=== PATIENT | female | born 1965 | race Caucasian/White ===

== ENCOUNTER 2016-03-06 12:12 | Inpatient (IN) | payer OTHER ==
[~2016-03-06] VITALS: Ht 170.2 cm; Wt 147.0 kg
--- NOTE | 2016-03-06 12:15 | NUR ---
TO EKG [facility].
--- NOTE | 2016-03-06 12:19 | ED GENERAL ADULT ---
History of Present Illness General Chief Complaint: Chest Pain Stated Complaint: PAIN UNDER L BREAST, RECENT DX PNEUMONIA Source: patient Exam Limitations: poor historian Allergies Coded Allergies: morphine (Severe, MAKES HER CRAZY 03/06/16) Reconcile Medications Albuterol Sulfate (Proventil Hfa) 90 MCG HFA.AER.AD 2 PUF INH 4 TIMES/DAY PRN BREATHING (Reported) Budesonide/Formoterol Fumarate (Symbicort 160-4.5 Mcg Inhaler) 160 MCG-4.5 MCG/ ACTUATION HFA.AER.AD 2 PUF INH BID BREATHING (Reported) Diltiazem HCl (Cartia Xt) 120 MG CAP.ER.24H 1 CAP PO DAILY HEART (Reported) Duloxetine HCl 60 MG CAPSULE.DR 1 CAP PO DAILY MENTAL HEALTH (Reported) Esomeprazole (Nexium) 40 MG CAPSULE.DR 1 CAP PO DAILY GI (Reported) Gabapentin 300 MG CAPSULE 2 CAP PO TID PAIN (Reported) Quetiapine Fumarate 25 MG TABLET 1 TAB PO QPM SLEEP (Reported) Rivaroxaban (Xarelto) 20 MG TABLET 1 TAB PO DAILY BLOOD THINNER (Reported) with food Tiotropium [place] (Spiriva) 18 MCG CAP.W.DEV 1 CAP INH DAILY BREATHING ( Reported) Trazodone HCl 50 MG TABLET 2 TAB PO QPM SLEEP (Reported) Onset: Abrupt Duration: hour(s): Timing: recent history HPI: 03/06/16 12:32 PM This is a 50-year-old female who has a past medical history of asthma and is a smoker. She says that she was diagnosed with pneumonia and now has severe muscle spasms in her chest wall. She admits to cough and difficulty breathing. The onset of the symptoms were abrupt, the duration has been approximately 12 hours, the severity is significant as her symptoms required her to come to the emergency department for care. On physical exam. The patient is in severe distress, she has left sided pleuritic chest wall tenderness. Poor air entry on the exam She was immediately treated with oxygen, albuterol and Atrovent nebulizers (JHOANA AYOUB DO) Vital Signs & Intake/Output Vital Signs & Intake/Output Vital Signs Date Time Temp Pulse Resp B/P Pulse O2 O2 Flow FiO2 Ox Delivery Rate 03/07 1600 Nasal 5.0L Cannula 03/07 1600 96.8 86 18 140/70 93 Nasal 5.0L Cannula 03/07 1200 Nasal 6.0L Cannula 03/07 0850 Nasal 3.0L Cannula 03/07 0850 91 Nasal 3.0L Cannula 03/07 0800 Nasal 3.0L Cannula 03/07 0800 97.5 86 24 110/70 93 Nasal 3.0L Cannula 03/07 0452 94 Nasal 3.0L Cannula 03/07 0452 97.6 89 31 98/39 95 Nasal 3.0L Cannula 03/07 0352 94 Nasal 3.0L Cannula 03/07 0248 97.9 72 24 98/66 95 Nasal 3.0L Cannula 03/07 0209 76 98/62 03 0155 82/58 03/07 0050 82/58 03/06 2342 97.6 90 20 72/00 95 Nasal 3.0L Cannula 03/06 2147 98.9 90 18 86/0 95 Room Air 03/06 2018 78/62 03/06 1946 78/0 03/06 1946 78/52 03/06 1853 84/60 03/06 1843 99.3 94 18 84/50 94 Nasal 3.0L Cannula 03/06 1748 120/50 03/06 1723 99.0 85 22 84/56 94 Nasal 2.0L Cannula ED Intake and Output 03/07 0000 03/06 1200 Intake Total 3000 Output Total 160 Balance 2840 Intake, IV 3000 Intake, Oral 0 Output, Urine 160 Patient 324 lb Weight Triage Nurses Notes Reviewed? yes (BERNARDINO RESTREPO,ELISABETH Dorman) Past History Travel History Traveled to [place] past 21 day No Medical History Cardiovascular: hypertension Respiratory: COPD Endocrine: diabetes Surgical History Surgical History: non-contributory Psychosocial History What is your primary language Turkmen (JHOANA AYOUB DO) Medical History Any Pertinent Medical History? see below for history Family History Hx Contributory? No (BERNARDINO RESTREPO,ELISABETH Dorman) Review of Systems Review of Systems Respiratory: Reports: see HPI. Cardiovascular: Reports: chest pain (chest wall). GI: Denies: abdominal pain. Genitourinary: Reports: no symptoms. Musculoskeletal: Reports: back pain. Skin: Denies: rash. Neurological/Psychological: Reports: anxiety. Hematologic/Endocrine: Denies: bleeding. (JHOANA AYOUB DO) Review of Systems Constitutional: Reports: see HPI. EENTM: Reports: no symptoms. Respiratory: Reports: no symptoms. Cardiovascular: Reports: no symptoms. GI: Reports: no symptoms. Genitourinary: Reports: no symptoms. Musculoskeletal: Reports: no symptoms. Skin: Reports: no symptoms. Neurological/Psychological: Reports: no symptoms. Hematologic/Endocrine: Reports: no symptoms. Immunologic/Allergic: Reports: no symptoms. All Other Systems: Reviewed and Negative (BERNARDINO RESTREPO,ELISABETH Dorman) Physical Exam Physical Exam General Appearance: well developed/nourished, alert, awake, anxious, moderate distress Eyes: Bilateral: PERRL, EOMI. Ears, Nose, Throat: dry mucosa Neck: normal inspection, supple, full range of motion Respiratory: left-sided chest wall tenderness Cardiovascular: regular rate/rhythm Peripheral Pulses: 4+ radial (R), 4+ radial (L) Gastrointestinal: soft, non-tender Back: normal inspection (JHOANA AYOUB DO) Physical Exam General Appearance: moderate distress Head: normal appearance Eyes: Bilateral: normal appearance. Ears, Nose, Throat: dry mucosa Neck: normal inspection, supple, full range of motion Respiratory: normal breath sounds, respiratory distress, coarse breath sounds Cardiovascular: regular rate/rhythm Gastrointestinal: normal bowel sounds, soft, non-tender, no organomegaly Back: normal inspection Extremities: normal inspection, normal capillary refill, normal range of motion Neurologic/Psych: no motor/sensory deficits, awake, alert, oriented x 3 Skin: intact, normal color, warm/dry Core Measures ACS in differential dx? No CVA/TIA Diagnosis: No Severe Sepsis Present: No Septic Shock Present: No (BERNARDINO RESTREPO,ELISABETH Dorman) Progress Differential Diagnoses I considered the following diagnoses in my evaluation of the patient: [Pneumonia , pulmonary embolism, sepsis, pneumothorax] Initial ED EKG: NSR (JHOANA AYOUB DO) Differential Diagnoses I considered the following diagnoses in my evaluation of the patient: septic shock, pneumonia, vs other. Plan of Care: Orders Procedure Date/time Status VANCOMYCIN (VANCOCIN) LEVEL 03/08 0600 Active Consistent Carbohydrate 2 03/07 B Complete BLOOD CULTURE 03/07 1514 Active THERAPIST ORDERS 03/07 1431 Complete GLYCOSYLATED HGB 03/07 1235 Active STREP PNEUMO URINARY ANTIGEN 03/07 1207 Complete LEGIONELLA URINARY ANTIGEN 03/07 1207 Complete LOWER RESPIRATORY CULTURE 03/07 1207 Active RT: Reevaluation 03/07 0850 Active RT: Evaluation 03/07 0850 Active Cummins, Insertion/Removal/Asses 03/07 0805 Active CBC WITHOUT DIFFERENTIAL 03/07 0600 Complete BASIC ELECTROLYTES PLUS BUN&CR 03/07 0600 Complete TROPONIN LEVEL 03/07 0347 Complete PHOSPHORUS 03/07 0347 Complete MAGNESIUM 03/07 0347 Complete B-TYPE NATRIURETIC PEP (BNP) 03/07 0347 Complete VRE ACTIVE SURVIELLANCE 03/07 0319 Active ACTIVE SURVEILLANCE NARES 03/07 0319 Active Add-on Test (ER Only) 03/07 0026 Active URINE DRUGS OF ABUSE 03/07 0010 Complete THERAPIST ORDERS 03/07 UNK Complete Lab Add-on Test 03/07 UNK Active MRI-LT FOOT W/O HAO 03/07 UNK Active PHARMACY COMMUNICATION FORM 03/07 UNK Active Wound Care/Dressing 03/06 2321 Active Weight 03/06 2321 Active VTE Mechanical Prophylaxis 03/06 2321 Active Vital Signs 03/06 2321 Active Turn and Reposition 03/06 2321 Active Drains/Tubes 03/06 232 Active Teach/Educate 03/06 232 Active Skin Integrity Protocol 03/06 2321 Active Skin/Pressure Ulcer Assess (Sk 03/06 2321 Active Precautions 03/06 2321 Active Pain Treatment and Response 03/06 2321 Active Nutritional Intake, Monitor 03/06 232 Active Isolation 03/06 232 Active CIWA 03/06 232 Complete Patient Care Conference 03/06 232 Active Activity/Ambulation 03/06 2321 Active LACTIC ACID 03/06 2304 Complete CULTURE,URINE 03/06 222 Active TROPONIN LEVEL 03/06 220 Complete EKG 03/06 220 Active Transfer patient to 03/06 2114 Active LACTIC ACID 03/06 2003 Complete Transfer patient to 03/06 2000 Active TROPONIN LEVEL 03/06 1811 Complete EKG 03/06 1811 Active URINALYSIS 03/06 1747 Complete Intake & Output 03/06 UNK Active Cummins, Insertion/Removal/Asses 03/06 UNK Complete ECHOCARDIOGRAM 03/06 UNK Active Current Medications Sig/Teresita Start time Last Medication Dose Stop Time Status Admin Azithromycin 500 MG 1830 03/07 1830 AC (Zithromax) Sodium Chloride 250 ML (Normal Saline 0.9%) Vancomycin HCl 1,500 MG ONCE ONE 03/07 1645 UNir Sodium Chloride 250 ML 03/07 1744 (Normal Saline 0.9%) Insulin Aspart 0 TIDAC 03/07 0800 CAN (NovoLOG) Laboratory Tests 03/07/16 1245: Hemoglobin A1c Pending 03/07/16 0600: CBC w Diff MAN DIFF ORDERED, RBC 3.80 L, MCV 98.2, MCH 32.5 H, RDW 13.1, MPV 10.5 H, Gran % 91.5 H, Lymphocytes % 4.0 L, Monocytes % 4.5, Eosinophils % 0, Basophils % 0 L, Absolute Granulocytes 16.8 H, Segmented Neutrophils 77 H, Band Neutrophils 10 H, Absolute Lymphocytes 0.7 L, Lymphocytes 7 L, Monocytes 6, Absolute Monocytes 0.8 H, Absolute Eosinophils 0, Absolute Basophils 0, Platelet Estimate VERIFIED BY SMEAR, Polychromasia 1+, Anisocytosis 1+, PUBS MCHC 33.1 03/07/16 0400: Troponin I Cancelled 03/07/16 0347: Anion Gap 17 H, Estimated GFR 30 L, BUN/Creatinine Ratio 17.8, Phosphorus 3.7, Magnesium 1.5 L, Troponin I < 0.01, Zuf-[id number]-[id number] Pept 234 H 03/07/16 0010: Urine Opiates Screen 841.00, Methadone Screen 121, Barbiturate Screen < 60, Ur Phencyclidine Scrn 22.00, Amphetamines Screen < 100, U Benzodiazepines Scrn < 85 , Urine Cocaine Screen < 50, Urine Cannabis Screen < 5.00, Urinalysis MOD H, Urine Color YEL, Urine Clarity CLEAR, Urine pH 6.0, Ur Specific [place] 1.025, Urine Protein 100 H, Urine Ketones NEG, Urine Nitrite NEG, Urine Bilirubin NEG@ ICTO, Urine Urobilinogen 0.2, Ur Leukocyte Esterase NEG, Ur Microscopic SEDIMENT EXAMINED, Urine RBC 1-3, Urine WBC 5-10 H, Ur Epithelial Cells MOD H, Urine Mucus FEW, Urine Hemoglobin TRACE-INTACT, Urine Glucose >=1000 H 03/06/16 2344: Lactic Acid 1.3 03/06/16 2200: Troponin I < 0.01 03/06/16 2119: Lactic Acid 2.2 H 03/06/16 2000: Troponin I Cancelled 03/06/16 1833: Troponin I < 0.01 Microbiology 03/07 1542 BLOOD: Blood Culture - RECD 03/07 1542 BLOOD: Blood Culture - RECD 03/07 1234 URINE ROUT: Legionella Antigen - COMP 03/07 1234 URINE ROUT: Streptococcus pneumoniae Antigen (M - COMP 03/07 1207 LOWER RESP: Respiratory Culture - COLB 03/07 1207 LOWER RESP: Gram Stain - COLB 03/07 0320 UPPER RESP: Surveillance Culture - RECD 03/07 0320 GI: Surveillance Culture - RECD 03/07 0010 URINE ROUT: Urine Culture - RECD 03/06 2208 EXTREMITIE: Culture & Sensitivity - CAN Cancelled: SPECIMEN NOT RECEIVED IN LABORATORY 03/06 2208 EXTREMITIE: Gram Stain - CAN Cancelled: SPECIMEN NOT RECEIVED IN LABORATORY Departure Departure Condition: Stable Referrals: MARICARMEN MONTGOMERY DO (PCP/Family) Departure Forms: Customer Survey General Discharge Information Comments The patient was treated with IV fluids, IV antibiotics and admitted to the hospital for further care. Admission Note Spoke With: KAYLA MURPHY MD Documentation of Exam: Documentation of any treatments & extenuating circumstances including Concerns Regarding Discharge (functional status, medication knowledge or non-compliance, living conditions, etc.) that warrant an admission rather than observation: [The patient needs admission for IV antibiotics, CTA, consider pulmonary consult, rule out pulmonary embolism] (JHOANA AYOUB DO) Departure Disposition: STILL A PATIENT Clinical Impression Primary Impression: Pneumonia Secondary Impressions: JOSE L (acute kidney injury), Septic shock Referred to [facility] as new patient No Comments 03/07/16, 1:20AM....pt with persistent hypotension despite 5 liters normal saline bolus... discussed at length with patient who signed informed consent, mindful of increased bleeding risk due to her xarelto. right femoral line placed under sterile technique without complication.... levophed gtt started. (BERNARDINO RESTREPO,ELISABETH Dorman) Procedures Central Line Central Line Lumen: triple Central Line Procedure: Yes: bentadine prep?, sterile drapes applied, sterile dressing applied. Central Line Position: femoral (R) Anesthesia: lidocaine 1% CC's of Anesthesia: 20 Complications: none Central Line Post Position: sutured, good blood return Progress: bleeding minimal. no complications. (BERNARDINO RESTREPO,ELISABETH Dorman) Critical Care Note Critical Care Note Critical Care Time: 30-74 min (ELISABETH LEBRON MD)
--- NOTE | 2016-03-06 12:20 | NUR ---
PT TO ED C/O MUSCLE SPAMS UNDER LEFT BREAST AND LEFT ARM X 2 DAYS. PT IS CURRENTLY BEING TREATED WITH AVELOX AND PREDNISONE FOR PNEUMONIA. PT EXTREMEMLY ANXIOUS. RA SATS 90%. EKG DONE, PT TO ROOM 1.
[2016-03-06 12:39] LABS: ABSOLUTE BASOPHIL COUNT 0 /CUMM (0.0-0.2); ABSOLUTE EOSINOPHIL COUNT 0 /CUMM (0.0-0.7); ABSOLUTE GRANULOCYTE CT 18.4 /CUMM (1.4-6.5); ABSOLUTE LYMPH COUNT 1.6 /CUMM (1.2-3.4); ABSOLUTE MONOCYTE COUNT 0.5 /CUMM (0.10-0.60); BASOPHIL % 0.1 % (0.0-2.0); EOSINOPHIL % 0.2 % (0-5); GRANULOCYTE % 89.5 % (42.2-75.2); HEMATOCRIT 42.6 % (37-47); MEAN CORPUSCULAR HGB 32.1 PG (27.0-31.0); MEAN CORPUSCULAR HGB CONC 33.5 G/DL (33.0-37.0); MEAN PLATELET VOLUME 9.8 FL (7.4-10.4); PLATELET COUNT 230 /CUMM (130-400); RBC DISTRIBUTION WIDTH 13.4 % (11.5-14.5); RED BLOOD CELL CT 4.44 /CUMM (4.20-5.40); WHITE BLOOD CELL COUNT 20.5 /CUMM (4.8-10.8)
--- NOTE | 2016-03-06 12:41 | NUR ---
BLOOD WORK DRAWN AND SENT TO LAB: SST, LAV, BLUE, BUTCHER AND PINK TOPS. PT'S O2 SAT 89% RA. PLACED ON 3L NC OXYGEN WITH IMPROVEMENT TO 93%. PT MEDICATED WITH VALIUM AND TORADOL PER EMAR. RESP THERAPY AT BEDSIDE FOR TREATMENT.
--- NOTE | 2016-03-06 13:02 | NUR ---
CRITICAL TEST RESULTS [id number] BRIGIDO CASILLAS 50 F TESTS AND RESULTS: GLUCOSE 548 Results received and read back by: GERA LAGOS Results received date and time: 03/06/16 1303 The following provider was notified of the results, and read the results back: DR. AYOUB Notified date and time: 03/06/16 at 1300
--- NOTE | 2016-03-06 13:12 | NUR ---
PT MEDICATED WITH INSULIN PER EMAR. DOSE VERIFIED WITH LASHAY BOND.
[2016-03-06 13:51] LABS: PT 12.2 SEC (9.4-12.5)
[2016-03-06] MEDS ORDERED: PROVENTIL HFA6.7 GM INH (13:59)
[2016-03-06] MEDS ORDERED: PREDNISONE20 M1 PO (13:59)
[2016-03-06] MEDS ORDERED: LEVOFLOXACIN500 M1 PO (13:59)
[2016-03-06] MEDS ORDERED: SPIRIVA18 MCG INH (13:59)
[2016-03-06] MEDS ORDERED: QUETIAPINE FUMA25 M1 PO (14:00)
[2016-03-06] MEDS ORDERED: SYMBICORT 16010.2 GM INH (14:00)
[2016-03-06] MEDS ORDERED: DULOXETINE HCL60 MG PO (14:00)
[2016-03-06] MEDS ORDERED: TRAZODONE HCL50 M1 PO (14:00)
[2016-03-06] MEDS ORDERED: NEXIUM40 M1 PO (14:01)
[2016-03-06] MEDS ORDERED: CARTIA XT120 M1 PO (14:01)
[2016-03-06] MEDS ORDERED: GABAPENTIN300 M2 PO (14:01)
[2016-03-06] MEDS ORDERED: LOSARTAN-HCTZ1 EAC2 PO (14:01)
[2016-03-06] MEDS ORDERED: METFORMIN HCL1000 M1 PO (14:01)
[2016-03-06] MEDS ORDERED: XARELTO20 M2 PO (14:02)
--- NOTE | 2016-03-06 14:11 | NUR ---
PT TO CAT SCAN VIA STRETCHER NOW.
--- NOTE | 2016-03-06 14:25 | NUR ---
PT FROM CAT SCAN TO [email or web address]
--- NOTE | 2016-03-06 14:44 | History & Physical ---
DAVI SZYMANSKI 03/06/16 1444: General Information and HPI MD Statement: I have seen and personally examined BRIGIDO CASILLAS and documented this H&P. The patient is a 50 year old F who presented with a patient stated chief complaint of []. Source of Information: patient, old records Exam Limitations: no limitations History of Present Illness: Chief complaint: Muscle spasm in chest wall/left sided This is a 50-year-old active smoker lady with past medical history significant for COPD not on home oxygen, type 2 diabetes, hypertension, atrial fibrillation, ? Right lower extremity DVT who presents to the hospital for chest discomfort. Patient describes her chest her chest discomfort as left sided muscle spasm, , radiates to her Left arm and neck which she has been experiencing since yesterday. According to the patient, she might have pulled her muscle while lifting her dog(weighs about 25 pounds). She is also very anxious, worries about her who has dementia; as she is the only caregiver for her . Patient also reports trouble breathing after each episode of muscle spasm. The patient denies fevers, chills headache, nausea, vomiting, dizziness, lightheadedness, chest pain, chest pressure, palpitation, abdominal pain, urinary symptoms. She was diagnosed with pneumonia as outpatient this Sunday. She was started on levofloxacin and by mouth prednisone. Her productive cough still persists( greenish sputum) and she hasn't noticed any improvement on antibiotics. 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 She smokes half a pack per day, per patient she has significantly reduced her smoking. She denies EtOH or illicit drug use. Regarding her diabetes, it was diagnosed 8 years ago, she is trying to lose weight, is compliant with her medication, does not check her glucose levels at home. He has decreased sensation in her lower extremities as baseline and is on gabapentin for diabetic neuropathy. 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 Per patient, she was started on Xarelto last July after diagnosis of DVT in her right lower extremity. Allergies/Medications Allergies: Coded Allergies: morphine (Severe, MAKES HER CRAZY 03/06/16) Home Med list Albuterol Sulfate (Proventil Hfa) 90 MCG HFA.AER.AD 2 PUF INH 4 TIMES/DAY PRN BREATHING (Reported) Budesonide/Formoterol Fumarate (Symbicort 160-4.5 Mcg Inhaler) 160 MCG-4.5 MCG/ ACTUATION HFA.AER.AD 2 PUF INH BID BREATHING (Reported) Diltiazem HCl (Cartia Xt) 120 MG CAP.ER.24H 1 CAP PO DAILY HEART (Reported) Duloxetine HCl 60 MG CAPSULE.DR 1 CAP PO DAILY MENTAL HEALTH (Reported) Esomeprazole (Nexium) 40 MG CAPSULE.DR 1 CAP PO DAILY GI (Reported) Gabapentin 300 MG CAPSULE 2 CAP PO TID PAIN (Reported) Quetiapine Fumarate 25 MG TABLET 1 TAB PO QPM SLEEP (Reported) Rivaroxaban (Xarelto) 20 MG TABLET 1 TAB PO DAILY BLOOD THINNER (Reported) with food Tiotropium [place] (Spiriva) 18 MCG CAP.W.DEV 1 CAP INH DAILY BREATHING ( Reported) Trazodone HCl 50 MG TABLET 2 TAB PO QPM SLEEP (Reported) Past History Travel History Traveled to [place] past 21 day No Medical History Cardiovascular: hypertension Respiratory: COPD Endocrine: diabetes Surgical History Surgical History: non-contributory Review of Systems Review of Systems Constitutional: Denies: chills, diaphoresis, fever, malaise, weakness, unexplained weight loss. EENTM: Denies: blurred vision, double vision, visual changes, eye pain, eye drainage, eye tearing, icterus, ear discharge, ear pain, ear redness, hearing changes, nasal congestion, epistaxis, nasal pain, throat pain. Cardiovascular: Denies: chest pain, edema, orthopena, palpitations, peripheral edema, syncope. Respiratory: Reports: cough, short of breath, sputum production, wheezing. Denies: hemoptysis, orthopnea, stridor. GI: Denies: abdominal pain, bloating, constipation, diarrhea, distention, bowel incontinence, melena, nausea, bloody stool, changes in stool, vomiting, steatorrhea. Genitourinary: Denies: discharge, dysuria, frequency, hematuria, hesitation, nocturia, pain, urgency. Musculoskeletal: Denies: back pain, gout, joint pain, joint swelling, muscle pain, muscle stiffness, neck pain. Skin: Denies: cysts, change in skin color, change in hair/nails, dryness, erythema, jaundice, lymphangitis, lumps, moles, rash. Neurological/Psychological: Reports: anxiety. Denies: ataxia, cognitive dysfunction, confusion, depressed, dementia, emotional problems, headache, numbness, paresthesia, pre-existing deficit, petit mal seizures, tingling, tremors, tonic-clonic seizures. Hematologic/Endocrine: Denies: bruising, bleeding, polyuria, polydipsia. Immunologic/Allergic: Denies: see HPI, splenectomy, HIV/AIDS, lymphadenopathy, other. All Other Systems: Reviewed and Negative Exam & Diagnostic Data Last 24 Hrs of Vital Signs/I&O Vital Signs Date Time Temp Pulse Resp B/P Pulse O2 O2 Flow FiO2 Ox Delivery Rate 03/06 1723 99.0 85 22 84/56 94 Nasal 2.0L Cannula 03/06 1614 98.1 88 20 80/52 95 Nasal 3.0L Cannula 03/06 1457 96.6 89 20 121/52 95 Nasal 3.0L Cannula 03/06 1242 93 Nasal 3.0L Cannula 03/06 1221 96.5 93 26 106/72 90 Room Air Intake & Output 03/06 1600 03/06 0800 03/06 0000 Intake Total 0 Output Total Balance 0 Intake, Oral 0 Patient 324 lb Weight Physical Exam General Appearance Alert, Oriented X3, Cooperative, Mild Distress, Obese Skin No Rashes, No Breakdown HEENT Atraumatic, PERRLA, EOMI, Mucous Membr. moist/pink Neck Supple, No JVD, No thryomegaly, +2 Carotid Pulse wo Bruit, No LAD Lymphatic Axillary nl, Cervical nl Cardiovascular Regular Rate, Normal S1, Normal S2, No Murmurs, No tenderness to palpation on the chest wall b/l Lungs Normal Air Movement, expiratory wheezes, decreased breath sounds Abdomen Normal Bowel Sounds, Soft, No Tenderness, No Hepatospenomegaly, No Masses Neurological Normal Speech, Strength at 5/5 X4 Ext, Normal Tone, Cranial Nerves 3-12 NL, Reflexes 2+, decreased sensation on LE B/L, sensation otherwise intact Extremities No Clubbing, No Cyanosis, No Edema, Normal Pulses, No Tenderness/ Swelling, wound noted on second and third left toes; there is no toenail present on 2nd and 3rd toes. There is yellow scab present on the wound. erythema noted no pus noted. No tenderness. No wound/infection in between toes. it. Per patient she had trauma to her leg few months ago. Vascular Normal Pulses, Pulses Symmetrical Last 24 Hrs of Labs/Chase: Laboratory Tests 03/06/16 1231: Anion Gap 14, Estimated GFR 43 L, BUN/Creatinine Ratio 21.5, Glucose 548 *H, Calcium 10.0, Total Bilirubin 1.3, AST 17, ALT 42, Alkaline Phosphatase 128 H, Troponin I < 0.01, Total Protein 7.5, Albumin 4.0, Globulin 3.5, Albumin/ Globulin Ratio 1.1, PT 12.2, INR 1.16, D-Dimer 1973 H, CBC w Diff MAN DIFF ORDERED, RBC 4.44, MCV 96.0, MCH 32.1 H, RDW 13.4, MPV 9.8, Gran % 89.5 H, Lymphocytes % 7.7 L, Monocytes % 2.5, Eosinophils % 0.2, Basophils % 0.1, Absolute Granulocytes 18.4 H, Segmented Neutrophils 83 H, Band Neutrophils 7 H, Absolute Lymphocytes 1.6, Lymphocytes 6 L, Monocytes 4, Absolute Monocytes 0.5, Absolute Eosinophils 0, Absolute Basophils 0, Normocytic RBCs VERIFIED, Normochromic RBCs VERIFIED, PUBS MCHC 33.5 Microbiology 03/06 1608 BLOOD: Blood Culture - RECD 03/06 1555 BLOOD: Blood Culture - RECD 03/06 1550 LOWER RESP: Respiratory Culture - ORD 03/06 1550 LOWER RESP: Gram Stain - ORD Diagnostic Data EKG Results Sinus rhythm, rate 90, QTC 465, no significant ST-T wave abnormalities. CXR Results Chest x-ray 03/01/2016:Suspect small subtle basilar infiltrate at left lung base. Other Results Chest CTA: 1. No evidence of pulmonary embolism. 2. Acute left upper lobe lingular pneumonia and/or early pneumonia right lower lobe. 3. Trace left pleural effusion and reactive lymphadenopathy in the left hilum. Assessment/Plan Assessment: 50-year-old lady with history of COPD and recent pneumonia presents today with sided chest discomfort and muscle spasm along with productive cough and shortness of breath. Bilateral lower extremity Doppler was negative for any DVT , CTA was negative for PE and showed right lower lobe and left upper lobe pneumonia. On admission, it was also noted that the patient has blood glucose level of 548. Problem list/plan: #Chest discomfort, shortness of breath * The patient has left-sided chest discomfort which she describes as muscle spasm, it radiates to her left arm. Elevated D-dimer. CTA was negative for any PE. Her symptoms started after she tried lifting her dog yesterday; most likely musculoskeletal however cardiac etiology should be ruled out. 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 Ying as outpatient; patient is on Xarelto and mentions that she has been on Xarelto for right lower extremity DVT, per our records she is on Xarelto for atrial fibrillation, will confirm with Dr. Ying tomorrow * Flexeril 5 mg daily when necessary for muscle spasm * Oxycodone 5 mg every 8 when necessary for severe pain * Tylenol 650 every 6 when necessary for mild/moderate pain #Pneumonia/COPD exacerbation: * CTA shows Acute left upper lobe lingular pneumonia and/or early pneumonia right lower lobe. * WBC 20.5 with granulocytosis of note patient has been on steroids. * She was diagnosed with pneumonia and COPD exacerbation as outpatient however her symptoms did not improve on the levofloxacin and prednisone * TRC/nebs * Oxygen supplementation as needed * Blood culture, sputum culture * Will start IV ceftriaxone and IV azithromycin after obtaining cultures * Will start prednisone 40 mg by mouth twice a day * Consider pulmonary consult in the morning #Type 2 diabetes with diabetic neuropathy: * Patient was found to have blood glucose level of 548 on admission; after receiving 6 units of Humalog insulin blood glucose level decreased to 408. * Will administer insulin aspart 8 units 1, will start the patient on high dose sliding scale, and insulin detemir 8 units subcutaneous at bedtime * Accu-Cheks * Will hold home medication of metformin * Continue gabapentin at home dose for neuropathy * Will add hemoglobin A1c to her labs * Diabetes/cardiac diet * Consider podiatry consult for wounds on 2nd and 3rd left toes. * Consider Xray of the left foot #AK I: * Patient has creatinine level of 1.3 on admission (baseline 1 in July 2015) * Given patient was on home medication of metformin also received contrast through CTA start aggressive hydration with normal saline at 1 25 mL/h for one bag, will change to 100 mL/h afterwards * Will hold home medications of losartan and hydrochlorothiazide; if necessary we can add amlodipine for hypertension * Recheck BUN/Cr creatinine level tomorrow #History of hypertension: * Continue with diltiazem HCl 120 mg daily #Continue with rest of medications including duloxetine, quetiapine, trazodone #DVT prophylaxis: * On Xarelto #Pain management: * Tylenol for mild/moderate * Oxycodone for severe pain * Cyclobenzaprine for muscle spasm #CODE STATUS: * Full code Update: Patient had episodes of hypotension requiring IV boluses; blood pressure was not maintaining on IV fluids, given wound on the left toes, there was a concern that wounds could be source of infection. Xray of the foot was ordered which showed possible osteomyelitis but MRI suggested. Patient will be transferred to the ICU for closer monitoring. As Ranked By This Provider Problem List: 1. Pneumonia 2. JOSE L (acute kidney injury) 3. COPD exacerbation 4. Muscle spasm 5. Diabetes Core Measures/Miscellaneous Acute Coronary Syndrome ACS Diagnosis: No Cerebrovascular Accident CVA/TIA Diagnosis: No Congestive Heart Failure CHF Diagnosis: No Venous Thromboembolism VTE Risk Factors: Age > 40, Smoking VTE Prophylaxis Ordered Inpt: Pharm- Xarelto No Mech VTE prophylaxis d/t: No contraindications No VTE Pharm Prophylaxis d/t: No contraindications VTE Diagnosis: No VTE Type: NONE VTE Confirmed by (Test): NONE Miscellaneous Documentation Attending Case Discussed With: KAYLA MURPHY MD Primary Care Physician: MARICARMEN MONTGOMERY DO Patient sees these Specialists Cardiology Level of Patient Care: Telemetry KAYLA MURPHY MD 03/07/16 0746: Core Measures/Miscellaneous Severe Sepsis Severe Sepsis Present: No Septic Shock Septic Shock Present: No Attending MD Review Statement Attending Statement Attending MD Statement: examined this patient, discuss w/resident/PA/SKIDDER, agreed w/resident/PA/SKIDDER, reviewed EMR data (avail), reviewed images Attending Assessment/Plan: See medical brief addendum note dated 03/06/16 Primary Care Physician: MARICARMEN MONTGOMERY DO Patient sees these Specialists Cardiology Level of Patient Care: Telemetry
--- NOTE | 2016-03-06 14:48 | NUR ---
WAITING FOR CTA TO COME BACK BEFORE HEPARIN INFUSION, OKAY PER DR. AYOUB.
--- NOTE | 2016-03-06 15:02 | NUR ---
BED 182
--- NOTE | 2016-03-06 15:09 | Admission Certification ---
Admission Certification Certification Statement - As attending physician, I certify that at the time of - admission, based on clinical presentation, severity of - symptoms, need for further diagnostic testing and - therapeutic interventions, and risk of adverse outcomes - without in-hospital treatment, in my clinical assessment, - this patient requires an acute hospital stay for a minimum - of two nights or longer. I have also considered psychsocial - factors such as support system, advanced age, financial - issues, cognitive issues, and failed out-patient treatments, - past re-admission history, safety of patient, and lack of - compliance as applicable. Specific rationale supporting this admission is: Uncontrolled diabetes, pneumonia needs IV antibiotics.
--- NOTE | 2016-03-06 15:12 | PN- Att Addend ---
Attending Addendum Attending Brief Note 50-year-old female past medical history of A. fib on Xarelto, COPD and diabetes who was recently started on Avelox and prednisone for pneumonia and COPD exacerbation. She is here with left arm and left breast pain, uncontrolled diabetes, and leukocytosis with bandemia and left shift and a sat of 89% on room air. My feeling is that all of her symptoms are related to community-acquired pneumonia. She failed outpatient antibiotics and needs IV ceftriaxone and Azithro. The ER was concerned about a PE. If this noncontrast chest CT doesn't show any significant abnormality to explain her hypoxemia and leukocytosis then I would worry about PE. At this point will continue her Xarelto. Obviously hold her losartan and hydrochlorothiazide given the JOSE L, hydrate her aggressively, follow the sugars closely and follow-up. Addendum the ER actually ordered a contrast chest CT which is negative for PE but does show right lower lobe and left upper lobe pneumonia. We'll continue antibiotics. Given her uncontrolled diabetes and mild jose l and now contrast Will hydrate her aggressively and closely follow the BUN and creatinine. Continue Xarelto for A. fib.
--- NOTE | 2016-03-06 15:18 | NUR ---
HOUSE STAFF AT BEDSIDE FOR EVAL.
--- NOTE | 2016-03-06 15:18 | CT SCAN REPORT ---
EXAMINATION: CT ANGIOGRAM OF THE CHEST WITH AND WITHOUT CONTRAST (CT PULMONARY ANGIOGRAM FOR PE) CLINICAL INFORMATION: Shortness of breath and leg swelling. (Normal triplex scan of both lower extremities). COMPARISON: Triplex scan done today. Chest x-ray done 03/01/2016. TECHNIQUE: Prior to contrast administration, noncontrast localization images were obtained. Subsequently, multidetector volumetric imaging was performed from the thoracic inlet to below the diaphragms following the administration of 95 mL Optiray 320 intravenous contrast. No contrast reaction reported Sagittal, coronal, and MIP oblique sagittal reformatted images were obtained on the CT workstation, uploaded to PACS, and reviewed. Total exam dose-length product 570 mGy-cm FINDINGS: QUALITY OF STUDY/CONTRAST BOLUS: Satisfactory. PULMONARY ARTERIES: No central or segmental pulmonary emboli. THORACIC AORTA: No aneurysm or dissection. LUNG: Significant consolidation is seen involving the lingular segment of the left lower lobe diagnostic of left upper lobe pneumonia. In addition, early tree in bud opacities in the right lower lobe is consistent with early pneumonia in this location as well. The remainder lung breaux is clear. PLEURA: There is a trace left pleural effusion. MEDIASTINUM: The heart is normal in size. There is no pericardial effusion. Normal size lymph nodes are present in the mediastinum. Adenopathy in the left hilum is presumably reactive due to the left lung pneumonia. No evidence of septal bowing or right heart strain. CHEST WALL/AXILLA: No axillary or internal mammary lymphadenopathy. OSSEOUS STRUCTURES: There is a osteoporotic compression fracture involving the vertebral body at T11. No paraspinal hematoma is seen. No other fractures present. UPPER ABDOMEN: There is partial visualization of an IVC filter. Liver appears to be enlarged. No reflux of contrast into the hepatic veins to suggest elevated right heart pressures. IMPRESSION: 1. No evidence of pulmonary embolism. 2. Acute left upper lobe lingular pneumonia and/or early pneumonia right lower lobe. 3. Trace left pleural effusion and reactive lymphadenopathy in the left hilum. VTE: Negative.
--- NOTE | 2016-03-06 15:21 | ULTRASOUND REPORT ---
EXAMINATION: US TRIPLEX LOWER EXTREMITY, BILATERAL CLINICAL INFORMATION: Leg swelling and shortness of breath. COMPARISON: None. TECHNIQUE: Color-flow triplex imaging with spectral analysis and compression Doppler were performed on the bilateral lower extremities. FINDINGS: Respiratory variation, normal compression and augmented flow are noted throughout the bilateral lower extremities. The visualized common femoral vein, superficial femoral vein, profunda femoral vein, popliteal vein and mid calf peroneal and posterior tibial venous segments show no evidence of deep venous thrombosis. There is no Carmona's cyst. IMPRESSION: Normal triplex scan without evidence of deep venous thrombosis involving the bilateral lower extremities.
--- NOTE | 2016-03-06 15:24 | NUR ---
PT MEDICATED WITH INSULIN SQ PER EMAR.
--- NOTE | 2016-03-06 15:48 | NUR ---
PER RENETTA FROM HOUSE STAFF, NO HEPARIN GTT.
--- NOTE | 2016-03-06 16:22 | NUR ---
REPORT GIVEN TO BRITTANY BOND.
--- NOTE | 2016-03-06 16:29 | NUR ---
HOUSE STAFF PAGED.
--- NOTE | 2016-03-06 16:34 | NUR ---
SPOKE WITH RENETTA OF HOUSE STAFF ABOUT PT'S BLOOD PRESSURE. REQUESTING PT'S LEGS TO BE ELEVATED AND KEEP FLUIDS RUNNING. WILL BE DOWN TO EVAL PT IN A FEW MINUTES.
--- NOTE | 2016-03-06 17:52 | NUR ---
PER HOUSE STAFF, PT TO STAY IN ER WHILE THEY ATTEMPT TO CONTACT CASE MANAGEMENT IN REGARDS TO PT'S
--- NOTE | 2016-03-06 18:38 | NUR ---
REPEAT TROP DRAWN AND SENT BY THIS MST
--- NOTE | 2016-03-06 19:01 | NUR ---
SPOKE WITH RENETTA FROM HOUSE STAFF, FLUIDS TO CONTINUE AT 125 ML/HR AND PT TO KEEP HER LEGS ELEVATED.
--- NOTE | 2016-03-06 19:49 | NUR ---
HOUSE STAFF PAGED NOW
--- NOTE | 2016-03-06 19:53 | NUR ---
HOUSE STAFF PAGED AGAIN IN REGARDS TO PT'S HYPOTENSION.
--- NOTE | 2016-03-06 19:57 | NUR ---
TELE RESIDENT INFORMED OF HYPOTENSION. WILL DISCUSS POSSIBILITY OF TRANSFERING TO [facility]. WILL GET BACK TO ME
--- NOTE | 2016-03-06 21:27 | NUR ---
PT'S ASSIGNMENT 107
--- NOTE | 2016-03-06 21:54 | NUR ---
PT'S ASSIGNMENT 107
--- NOTE | 2016-03-06 22:09 | NUR ---
REPEAT SST SENT TO LAB.
--- NOTE | 2016-03-06 22:42 | NUR ---
PAYNE CATHETER PLACED UNDER STERILE TECHNIQUE. 160 ML OF CLEAR YELLOW URINE.
--- NOTE | 2016-03-06 22:44 | NUR ---
ICU INFORMED OF PLAN.
--- NOTE | 2016-03-06 22:52 | NUR ---
HOUSE STAFF AT BEDSIDE.
--- NOTE | 2016-03-06 23:15 | NUR ---
XRAY AT BEDSIDE.
--- NOTE | 2016-03-06 23:37 | RADIOLOGY REPORT ---
EXAMINATION: XR FOOT, LEFT CLINICAL INFORMATION: Toe ulcers with possible. COMPARISON: None. TECHNIQUE: AP, lateral, and oblique views of the left foot FINDINGS: Soft tissues are diffusely swollen. There is soft tissue swelling at the toes, most notably at the second and third toes. There is apparent osteolysis of the distal margin of the second toe distal phalanx, concerning for acute osteomyelitis. There is subtle cortical irregularity of the distal margin of the third toe which raises the possibility of osteolysis, though is more indeterminant. No definite osteolysis at the other phalanges. No acute fracture or malalignment. Small plantar calcaneal enthesopathic spur. Joint spaces appear relatively well-preserved. IMPRESSION: Soft tissue swelling at the toes with osteolysis at the distal margin of the distal phalanx of the second toe, most compatible with osteomyelitis. Potential osteomyelitis at the distal phalanx of the third toe is more indeterminant. Consider correlation MRI of the foot with and without contrast for more sensitivity and specificity.
--- NOTE | 2016-03-06 23:46 | NUR ---
BLOOD DRAWN AMD SENT TO LAB BUTCHER
--- NOTE | 2016-03-06 23:51 | NUR ---
THIS RN SPOKE WITH SABINE OF HOUSE STAFF AT PAGER 010; INFORMED THAT PT'S BP 72/00 VIA DOPPLER AFTER 5 LITERS OF NS. PER SABINE, "PLEASE SPEAK WITH DR. LEBRNO SINCE HE IS THE ONE WHO WOULD BE PLACING THE CENTRAL LINE." DR. LEBRON AWARE THAT PT'S BP STILL LOW AND THAT PT HAS ONLY VOIDED 160 ML VIA PAYNE CATHETER.
--- NOTE | 2016-03-07 00:01 | NUR ---
ASSUMED PRIMARY CARE, DR. LEBRON RE MADE AWARE OF CURRENT MANUAL BP AND OUTPT AND CURRENTAL MENTAL STATE, ALERT MENTATING BUT IS RESTLESS AND ANXIOUS. AWAITS CENTRAL LINE PLACEMENT. US AT BEDSIDE, CONSENT AND KIT. URINE FROM PAYNE SENT.
--- NOTE | 2016-03-07 01:55 | NUR ---
PT MEDICATED WITH 4MG LEVOPHED DRIP TITRATED. BP 82/58 MANUALLY. PT ALERT AND ORIENTED.
--- NOTE | 2016-03-07 02:18 | NUR ---
RESIDENT BEEPER 210 BEEPED RE PTS CURRENT BP/
--- NOTE | 2016-03-07 02:23 | NUR ---
PER DR KNOX BP OK KRIS GO TO ICU WITH LEVOPHED AT CURRENT RATE. PT REMAINS ALERT ORIENTED AND STABLE MONITOR SINUS RATE 63
--- NOTE | 2016-03-07 02:47 | NUR ---
REPORT TO RAGHU. HOUSESTAFF IN TO SEE PT BRIEFLY.PT ALERT ORIENTED STABLE.
--- NOTE | 2016-03-07 02:49 | NUR ---
CO DUMONT. EMOTIONAL. [facility] ICU AWARE OF PTS BEING IN HOSPITAL ON [facility].
--- NOTE | 2016-03-07 03:10 | NUR ---
PT TO ICU, PT VERY EMOTIONAL UNSURE OF HOW TO CARE FOR , PT CRYING STATING SHE HAS NO HELP. PT AWARE THAT WE COULD ARRANGE A SOCIAL SERVICE CONSULT FOR HER.
--- NOTE | 2016-03-07 04:25 | NUR ---
ADMITTED A 50 YEAR OLD QOMAN WHO CAME TO [facility] BECAUSE OF MUSCLE SPASMS TO HER RIGHT ABDOMEN. SHE WAS JUST DIAGNOSED WITH PNEUMONIA AND WAS GIVEN ANTIBIOTICS FOR IT. PT WAS GIVEN TORADOL AND VALIUM IN THE ER. SHE WAS PLACED ON 3L O2,SATURATION 94%. HER BP WAS 70/PALP-82/48. SHE WAS STARTED TO LEVOPHED AT 5MCG AFTER A TLC ON HER RIGHT GROIN WAS STARTED. SHE ALSO RECEIVED A TOTAL OF 6 LITERS OF NS IN THE ER. PAYNE WAS INSERTED IN THE ER AND THEY ONLY GOT 160 ML OF URINE. PT WAS ALSO STARTED ON ZITHRO AND XARELTO.
[2016-03-07 04:52] VITALS: BP 98/39
[2016-03-07 07:56] LABS: ABSOLUTE BASOPHIL COUNT 0 /CUMM (0.0-0.2); ABSOLUTE EOSINOPHIL COUNT 0 /CUMM (0.0-0.7); ABSOLUTE GRANULOCYTE CT 16.8 /CUMM (1.4-6.5); ABSOLUTE LYMPH COUNT 0.7 /CUMM (1.2-3.4); ABSOLUTE MONOCYTE COUNT 0.8 /CUMM (0.10-0.60); BASOPHIL % 0 % (0.0-2.0); EOSINOPHIL % 0 % (0-5); GRANULOCYTE % 91.5 % (42.2-75.2); MEAN CORPUSCULAR HGB 32.5 PG (27.0-31.0); MEAN CORPUSCULAR HGB CONC 33.1 G/DL (33.0-37.0); MEAN CORPUSCULAR VOLUME 98.2 FL (81.0-99.0); MEAN PLATELET VOLUME 10.5 FL (7.4-10.4); PLATELET COUNT 199 /CUMM (130-400); RBC DISTRIBUTION WIDTH 13.1 % (11.5-14.5); WHITE BLOOD CELL COUNT 18.4 /CUMM (4.8-10.8)
[2016-03-07 08:00] VITALS: BP 110/70
[2016-03-07 08:02] LABS: HEMATOCRIT 37.3 % (37-47)
--- NOTE | 2016-03-07 08:30 | Cons- CRCU ---
MARRY RESTREPO,DAILY 03/07/16 0830: General Information and HPI Consulting Request Date of Consult: 03/07/16 Requested By: Dr. Mayte Jack Reason for Consult: CRCU management Source of Information: patient, old records, EMS Exam Limitations: no limitations History of Present Illness: This is a 50-year-old active smoker lady with past medical history significant for COPD not on home oxygen, type 2 diabetes, hypertension, atrial fibrillation, ? Right lower extremity DVT who presents to the hospital for chest discomfort. Patient describes her chest her chest discomfort as left sided muscle spasm, , radiates to her Left arm and neck which she has been experiencing since yesterday. According to the patient, she might have pulled her muscle while lifting her dog(weighs about 25 pounds). She is also very anxious, worries about her who has dementia; as she is the only caregiver for her . Patient also reports trouble breathing after each episode of muscle spasm. The patient denies fevers, chills headache, nausea, vomiting, dizziness, lightheadedness, chest pain, chest pressure, palpitation, abdominal pain, urinary symptoms. She was diagnosed with pneumonia as outpatient this Sunday. She was started on levofloxacin and by mouth prednisone. Her productive cough still persists( greenish sputum) and she hasn't noticed any improvement on antibiotics. 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 She smokes half a pack per day, per patient she has significantly reduced her smoking. She denies EtOH or illicit drug use. Regarding her diabetes, it was diagnosed 8 years ago, she is trying to lose weight, is compliant with her medication, does not check her glucose levels at home. He has decreased sensation in her lower extremities as baseline and is on gabapentin for diabetic neuropathy. 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 Per patient, she was started on Xarelto last July after diagnosis of DVT in her right lower extremity. Allergies/Medications Allergies: Coded Allergies: morphine (Severe, MAKES HER CRAZY 03/06/16) Home Med List: Albuterol Sulfate (Proventil Hfa) 90 MCG HFA.AER.AD 2 PUF INH 4 TIMES/DAY PRN BREATHING (Reported) Budesonide/Formoterol Fumarate (Symbicort 160-4.5 Mcg Inhaler) 160 MCG-4.5 MCG/ ACTUATION HFA.AER.AD 2 PUF INH BID BREATHING (Reported) Diltiazem HCl (Cartia Xt) 120 MG CAP.ER.24H 1 CAP PO DAILY HEART (Reported) Duloxetine HCl 60 MG CAPSULE.DR 1 CAP PO DAILY MENTAL HEALTH (Reported) Esomeprazole (Nexium) 40 MG CAPSULE.DR 1 CAP PO DAILY GI (Reported) Gabapentin 300 MG CAPSULE 2 CAP PO TID PAIN (Reported) Quetiapine Fumarate 25 MG TABLET 1 TAB PO QPM SLEEP (Reported) Rivaroxaban (Xarelto) 20 MG TABLET 1 TAB PO DAILY BLOOD THINNER (Reported) with food Tiotropium Emerson (Spiriva) 18 MCG CAP.W.DEV 1 CAP INH DAILY BREATHING ( Reported) Trazodone HCl 50 MG TABLET 2 TAB PO QPM SLEEP (Reported) Current Medications: Current Medications Sig/Teresita Start time Last Medication Dose Route Stop Time Status Admin Acetaminophen 0 .STK-MED ONE 03/06 2309 DC PO Acetaminophen 650 MG Q6P PRN 03/06 1615 03/06 PO 2329 Albuterol Sulfate 3 ML EVERY 4 HRS/AWAKE 03/07 0900 AC 03/07 INH 1717 Azithromycin 500 MG 1830 03/07 1830 AC 03/07 Sodium Chloride 250 ML IV 1745 Azithromycin 500 MG DAILY 03/06 1544 CA 03/06 Sodium Chloride 250 ML IV 1829 Budesonide/ 2 PUF BID 03/07 1000 AC 03/07 Formoterol Fumarate INH 0955 Ceftriaxone Sodium 1,000 MG 1600 03/07 1600 DC 03/07 IV 1553 Ceftriaxone Sodium 1,000 MG DAILY 03/06 1543 DC 03/06 IV 1605 Cyclobenzaprine HCl 5 MG ONCE PRN 03/06 1530 AC 03/07 PO 0435 Diltiazem HCl 120 MG DAILY 03/06 1603 AC 03/07 PO 0955 Duloxetine HCl 60 MG DAILY 03/06 1603 03/07 PO 0955 Gabapentin 0 .STK-MED ONE 03/07 0034 DC PO Gabapentin 600 MG Q8 03/07 0000 AC 03/07 PO 1417 Gabapentin 600 MG TID 03/06 1601 DC 03/06 PO 1830 Hydromorphone HCl 0.2 MG ONCE ONE 03/07 1230 DC 03/07 IV 03/07 1231 1229 Hyoscyamine 0.125 MG Q4 HRS NEEDED PRN 03/07 1000 AC 03/07 PO 1553 Insulin Aspart 0 TIDAC/HS 03/07 1700 AC 03/07 SC 1621 Insulin Aspart 15 UNITS ONCE ONE 03/07 1615 DC 03/07 SC 03/07 1616 1621 Insulin Aspart 10 UNITS ONCE ONE 03/07 1245 DC 03/07 SC 03/07 1246 1258 Insulin Aspart 16 UNITS ONCE ONE 03/07 1215 DC 03/07 SC 03/07 1216 1214 Insulin Aspart 0 TIDAC 03/07 0800 CAN SC Insulin Aspart 0 TIDAC 03/06 1700 DC 03/07 SC 0841 Insulin Detemir 20 UNITS BID 03/07 1235 AC 03/07 SC 1257 Insulin Human Regular 100 UNIT Q24H 03/07 1715 AC Sodium Chloride 100 ML IV Lidocaine 20 ML ONCE ONE 03/07 0100 DC 03/07 ID 03/07 0101 0133 Lidocaine 20 ML ONCE ONE 03/07 0100 DC ID 03/07 0101 Lidocaine 0 .STK-MED ONE 03/07 0051 DC .ROUTE Magnesium Sulfate 1 GM Q2H 03/07 1245 DC 03/07 Dextrose/Water 100 ML IV 03/07 1644 1532 Norepinephrine 0 .STK-MED ONE 03/07 0143 DC IV Norepinephrine 4 MG Q24H 03/07 0130 DC 03/07 Sodium Chloride 250 ML IV 0155 Omeprazole 40 MG DAILY AC 03/06 1604 AC 03/07 PO 0722 Oxycodone HCl 5 MG Q8P PRN 03/06 1600 AC 03/07 PO 1109 Phosphate 250 MG ONCE ONE 03/07 1245 DC 03/07 PO 03/07 1246 1415 Prednisone 0 .STK-MED ONE 03/06 2219 DC PO Prednisone 40 MG BID 03/06 2200 AC 03/07 PO 0955 Quetiapine Fumarate 0 .STK-MED ONE 03/06 2219 DC PO Quetiapine Fumarate 25 MG QPM 03/06 2200 AC 03/06 PO 2251 Rivaroxaban 20 MG DAILY 03/06 1552 AC 03/07 PO 0955 Sodium Chloride 1,000 ML Q10H 03/07 0445 DC IV Sodium Chloride 1,000 ML BOLUS ONE 03/06 2345 DC IV 03/07 0044 Sodium Chloride 1,000 ML BOLUS ONE 03/06 2345 DC IV 03/07 0044 Sodium Chloride 1,000 ML BOLUS ONE 03/06 2215 DC /02 IV / 2314 2251 Sodium Chloride 1,000 ML BOLUS ONE 03/06 2045 DC 01/02 IV / 2144 2056 Sodium Chloride 500 ML BOLUS ONE 03/06 1915 DC 01/02 IV 03/06 2014 1915 Sodium Chloride 1,000 ML Q10H 03/06 1545 AC 03/07 IV 1415 Sodium Chloride 1,000 ML ONCE ONE 03/06 1230 DC / IV 03/07 0149 1248 Tiotropium Emerson 1 PUF DAILY 03/07 1000 AC 03/07 INH 0955 Tramadol HCl 50 MG ONCE ONE 03/07 1015 DC 03/07 PO 03/07 1016 1018 Trazodone HCl 0 .STK-MED ONE 03/06 2219 DC PO Trazodone HCl 100 MG QPM 03/06 2200 AC 03/06 PO 2251 Vancomycin HCl 1,500 MG ONCE ONE 03/07 1645 DC Sodium Chloride 250 ML IV 03/07 1744 Review of Systems Review of Systems Constitutional: Reports: see HPI, malaise, weakness. EENTM: Reports: no symptoms, see HPI. Cardiovascular: Reports: see HPI, chest pain, peripheral edema. Respiratory: Reports: see HPI, cough, short of breath, sputum production. GI: Reports: see HPI, abdominal pain. Genitourinary: Reports: see HPI. Musculoskeletal: Reports: no symptoms, see HPI. Skin: Reports: no symptoms, see HPI. Neurological/Psychological: Reports: no symptoms, see HPI. Hematologic/Endocrine: Reports: no symptoms, see HPI. All Other Systems: Reviewed and Negative Past History Travel History Traveled to [place] past 21 day No Medical History Blood Transfusion Hx: Yes Cardiovascular: AFIB, hypertension Respiratory: COPD Endocrine: diabetes Surgical History Surgical History: non-contributory Family History Relations & Conditions If Any: Relation not specified for: *No pertinent family history Psychosocial History Where Do You Live? Home Who Do You Live With? spouse Services at Home: Nursing Smoking Status: Current Everyday Smoker Illicit Drug Use: denies illicit drug use Functional Ability ADLs Independent: dressing, eating, toileting, bathing. Ambulation: independent IADLs Independent: shopping, housework, finances, food prep, telephone, transportation , medication admin. Employment History Employment: Unemployed Exam & Diagnostic Data Last 24 Hrs of Vital Signs/I&O Vital Signs Date Time Temp Pulse Resp B/P Pulse O2 O2 Flow FiO2 Ox Delivery Rate 03/07 1719 94 Nasal 5.0L Cannula 03/07 1600 Nasal 5.0L Cannula 03/07 1600 96.8 86 18 140/70 93 Nasal 5.0L Cannula 03/07 1200 Nasal 6.0L Cannula 03/07 0850 Nasal 3.0L Cannula 03/07 0850 91 Nasal 3.0L Cannula 03/07 0800 Nasal 3.0L Cannula 03/07 0800 97.5 86 24 110/70 93 Nasal 3.0L Cannula 03/07 0452 94 Nasal 3.0L Cannula 03/07 0452 97.6 89 31 98/39 95 Nasal 3.0L Cannula 03/07 0352 94 Nasal 3.0L Cannula 03/07 0248 97.9 72 24 98/66 95 Nasal 3.0L Cannula 03/07 0209 76 98/62 03/07 0155 82/58 03/07 0050 82/58 03/06 2342 97.6 90 20 72/00 95 Nasal 3.0L Cannula 03/06 2147 98.9 90 18 86/0 95 Room Air 03/06 2018 78/62 03/06 1946 78/0 03/06 1946 78/52 03/06 1853 84/60 Intake & Output 03/07 1600 03/07 0800 03/07 0000 Intake Total 2744.3 662 3000 Output Total 1700 600 160 Balance 1044.3 62 2840 Intake, IV 1304.3 562 3000 Intake, Oral 1440 100 Number 0 Bowel Movements Output, Urine 1700 600 160 Patient 147.418 kg Weight Physical Exam General Appearance: alert, awake, anxious, moderate distress Head: atraumatic, normal appearance Eyes: Bilateral: normal appearance, PERRL, EOMI. Ears, Nose, Throat: normal pharynx, normal ENT inspection, hearing grossly normal Neck: normal inspection, supple Respiratory: chest non-tender, rhonchi, wheezing, respiratory distress Cardiovascular: regular rate/rhythm, normal peripheral pulses Peripheral Pulses: 2+ radial (R), 2+ radial (L) Gastrointestinal: normal bowel sounds, soft, non-tender, reports spasms of the abdomen, but nontender Extremities: normal inspection, normal capillary refill Skin: intact Last 48 Hrs of Labs/Chase: Laboratory Tests 03/07/16 1750: Anion Gap 13, Estimated GFR 47 L, BUN/Creatinine Ratio 23.3 03/07/16 1245: Hemoglobin A1c Pending 03/07/16 0600: CBC w Diff MAN DIFF ORDERED, RBC 3.80 L, MCV 98.2, MCH 32.5 H, RDW 13.1, MPV 10.5 H, Gran % 91.5 H, Lymphocytes % 4.0 L, Monocytes % 4.5, Eosinophils % 0, Basophils % 0 L, Absolute Granulocytes 16.8 H, Segmented Neutrophils 77 H, Band Neutrophils 10 H, Absolute Lymphocytes 0.7 L, Lymphocytes 7 L, Monocytes 6, Absolute Monocytes 0.8 H, Absolute Eosinophils 0, Absolute Basophils 0, Platelet Estimate VERIFIED BY SMEAR, Polychromasia 1+, Anisocytosis 1+, PUBS MCHC 33.1 03/07/16 0400: Troponin I Cancelled 03/07/16 0347: Anion Gap 17 H, Estimated GFR 30 L, BUN/Creatinine Ratio 17.8, Phosphorus 3.7, Magnesium 1.5 L, Troponin I < 0.01, [id number]-[id number] Pept 234 H 03/07/16 0010: Urine Opiates Screen 841.00, Methadone Screen 121, Barbiturate Screen < 60, Ur Phencyclidine Scrn 22.00, Amphetamines Screen < 100, U Benzodiazepines Scrn < 85 , Urine Cocaine Screen < 50, Urine Cannabis Screen < 5.00, Urinalysis MOD H, Urine Color YEL, Urine Clarity CLEAR, Urine pH 6.0, Ur Specific Cool 1.025, Urine Protein 100 H, Urine Ketones NEG, Urine Nitrite NEG, Urine Bilirubin NEG@ ICTO, Urine Urobilinogen 0.2, Ur Leukocyte Esterase NEG, Ur Microscopic SEDIMENT EXAMINED, Urine RBC 1-3, Urine WBC 5-10 H, Ur Epithelial Cells MOD H, Urine Mucus FEW, Urine Hemoglobin TRACE-INTACT, Urine Glucose >=1000 H 03/06/16 2344: Lactic Acid 1.3 03/06/16 2200: Troponin I < 0.01 03/06/16 2119: Lactic Acid 2.2 H 03/06/16 2000: Troponin I Cancelled 03/06/16 1833: Troponin I < 0.01 03/06/16 1231: Anion Gap 14, Estimated GFR 43 L, BUN/Creatinine Ratio 21.5, Glucose 548 *H, Calcium 10.0, Total Bilirubin 1.3, AST 17, ALT 42, Alkaline Phosphatase 128 H, Troponin I < 0.01, Total Protein 7.5, Albumin 4.0, Globulin 3.5, Albumin/ Globulin Ratio 1.1, PT 12.2, INR 1.16, D-Dimer 1973 H, CBC w Diff MAN DIFF ORDERED, RBC 4.44, MCV 96.0, MCH 32.1 H, RDW 13.4, MPV 9.8, Gran % 89.5 H, Lymphocytes % 7.7 L, Monocytes % 2.5, Eosinophils % 0.2, Basophils % 0.1, Absolute Granulocytes 18.4 H, Segmented Neutrophils 83 H, Band Neutrophils 7 H, Absolute Lymphocytes 1.6, Lymphocytes 6 L, Monocytes 4, Absolute Monocytes 0.5, Absolute Eosinophils 0, Absolute Basophils 0, Normocytic RBCs VERIFIED, Normochromic RBCs VERIFIED, PUBS MCHC 33.5 Microbiology 03/07 123 URINE ROUT: Legionella Antigen - COMP 03/07 1233 URINE ROUT: Streptococcus pneumoniae Antigen (M - COMP Diagnostic Data CXR Results IMPRESSION: Increasing mid to basilar left lung opacity, along with a new small left pleural effusion. Other Results Foot Xray IMPRESSION: Soft tissue swelling at the toes with osteolysis at the distal margin of the distal phalanx of the second toe, most compatible with osteomyelitis. Potential osteomyelitis at the distal phalanx of the third toe is more indeterminant. Consider correlation MRI of the foot with and without contrast for more sensitivity and specificity. CTA: 1. No evidence of pulmonary embolism. 2. Acute left upper lobe lingular pneumonia and/or early pneumonia right lower lobe. 3. Trace left pleural effusion and reactive lymphadenopathy in the left hilum. VTE: Negative. Assessment/Plan Impression/Plan: Patient is a 50 YO F with PMH significant for A.Fib (on xarelto), COPD, T2DM, HTN came to the ER with chest pain radiating to the left arm and shortness of breath. She failed antimicrobial therapy with levofloxacin & steroid therapy as an outpatient. On examination she is also found to have a wound on her left foot along with high sugar (probably secondary to recent steroid intake). Her D-Dimer is around 2000. Doppler is negative for DVT, CTA negative for PE but shows RLL and DEBBI pneumonia. Blood sugars at admission is 548. Initially she was admitted to telemtry and subsequently found to be profoundly hypotensive after 4L of fluids and transfered to unit for pressors/central line placement while on xarelto. she was placed on a femoral central line eventually and started on levophed. Later she was found to have normal BP with a manual cuff and she was gradually tapered off the drip. As her Creatinine is 1.3 at admission, followed by increase to 1.8 after CTA - she was hydrated with NS @ 125ml/hr. As she sounded overloaded, we did an CXR in am which showed increased mid to basilar left lung opacity along with a new left pleural effusion. She is positive for gram positive cocci in clusters in both her blood cultures. Her blood sugars are in 400's throughout the day although insulin sliding scale is increased. Probably because of steroid intake. Recommendations: PLAN Suspected sepsis secondary to Multilobar pneumonia/Osteomyelitis * BP of 80/50mmHg, RR >24, white count of 20.5 (could be secondary to steroids) * CT angio shows DEBBI, RLL pneumonia * Nectrotic ulcers present on distal second third left foot. Foot Xray shows osteolysis of left foot 2nd toe - podiatry consulted. * MRI of left foot pending - may need digital amputation. * Blood cultures X 2 positive for gram positive cocci in clusters. * She was titrated slowly off the levophed drip, BP remained stable over the day. * Started on ceftriaxone and Azithromycin for multilobar pneumonia, eventually discontinued ceftriaxone and gave a single dose of vancomycin 1.5gm (as Blood Culx postive for gram +ve cocci) * Repeat blood cultures are ordered Type 2 Diabetes Mellitus * blood sugars at admission is in 500's * She was placed on high dose novolog sliding scale initially * Her blood sugars are in 400's to 500's throughout the day, although her sliding scale is changed. * Eventually she was placed on insulin drip @4units/hr * F/U HbA1C level * Endocrine consulted - is on board. JOSE L * creatinine at admission is 1.3(baseline 1.8) * After CT angio it is incresed to 1.8 as a result of contrast induced nephropathy. * she was placed on fluids and her creatinine came down to 1.2 * As her CXR shows pleural effusion - she is off fluids for now * will recheck creatinine tomorrow. A.Fib * On xarelto History of COPD * TRC/Nebs DVT Prophylaxis * On xarelto Code status * Full code Problem List: 1. Pneumonia 2. JOSE L (acute kidney injury) 3. Diabetes 4. Septic shock Consult Acknowledgment - Thank you for your consult request. TI PUTNAM MD 03/07/16 1139: Assessment/Plan Other Findings/Comments: Ti Loya M.D. have examined this patient, reviewed available EMR data, personally reviewed images, discussed with resident/PA/BUSINESS PROPOSAL REP, discussed management plan with housestaff and nursing staff, discussed managment plan all of healthcare providers, discussed management plan with patient and/or family, agreed with resident/PA/BUSINESS PROPOSAL REP. The past history and parts of the chart have been autopopulated. TTS 40min Consult Acknowledgment - Thank you for your consult request.
--- NOTE | 2016-03-07 08:49 | NUR ---
0800: RECEIVED PT IN BED. A+OX3, TEARFUL. ON 3L NC, LUNGS CLEAR IN UPPER LOBES, WHEEZING IN LOWER LOBES. LABORED BREATHING. NSR TO ST ON MONITOR. MANUAL B/P 110/70 AUTO CUFF 83/46, ON LEVO GTT AT 4MCG/MIN TO RIGHT GROIN TLC. NS @ 125 THRU TLC WELL. TOLERATING C2 DIET. PT IS OBESE, +BS, DENIES NAUSEA, +FLATUS. PAYNE IN PLACE DRAINING CLEAR YELLOW URINE. BLE EDEMA +1, + PEDAL AND RADIAL PULSES, BOUNDING. RIGHT GROIN TLC SITE BLOODY, DRESSING REINFORCED. PT COMPLAINING OF LUQ ABD SPASMS THAT RADIATE UP TO HER NECK.
--- NOTE | 2016-03-07 08:57 | NUR ---
PT'S BLOOD SUGAR 434. 14 UNITS GIVEN PER MD LARRY AWARE. RECHECK SUGAR IN 1 HOUR. PT'S OXYGEN LEVEL AT 88-89% ON 3L NC. TRC GIVEN. OXYGEN TURNED UP TO 4L SAT REMAINED AT 88%, INCREASED TO 5L AND THEN 6L. SAT REMAINS 88-89%, RT AT BEDSIDE. PT EATING BREAKFAST WILL PLACE ON VENTI MASK AFTER BREAKFAST PER RT BOB.
--- NOTE | 2016-03-07 09:53 | NUR ---
MANUAL B/P 124/80 LEVO GTT TURNED DOWN TO 3MCG. CVP 12 FROM RIGHT GROIN TLC
--- NOTE | 2016-03-07 10:23 | NUR ---
MANUAL B/P 138/80 LEVO GTT TURNED DOWN TO 2MCG/MIN
--- NOTE | 2016-03-07 11:45 | Cons- Infect Disease ---
General Information and HPI Consulting Request Date of Consult: 03/07/16 Requested By: KAYLA MURPHY MD Reason for Consult: Pneumonia/toe infection/rule out sepsis Source of Information: patient History of Present Illness: This is a 50-year-old woman with diabetes, COPD, atrial fibrillation and right leg DVT, status post IVC filter and maintained on Xarelto, status post trauma to her left foot several months prior to admission, resulting in ulcerations over the distal aspects of the second and third toes, associated with occasional pain and drainage, begun on Levaquin and prednisone 5 days prior to admission after developing a fever and productive cough several days earlier, with a chest x-ray revealing a small subtle basilar infiltrate at the left lung base, admitted on March 06 after presenting to the emergency room with 2 days of severe left chest pain, below her breast and radiating towards her left shoulder. On admission she was afebrile, with initial blood pressure of 106/72. O2 sat was 90% on room air. She was given Valium and Toradol, following which her blood pressure was noted to be 80/50. She was given 5 L of fluid in the emergency room with persistent hypotension and was then begun on Levophed with a right femoral triple-lumen catheter, which was inserted in the emergency room. Laboratory data revealed a white blood cell count of 21,000, with 83 segs and 7 bands, glucose 548, BUN/creatinine 28 and 1.3, alk phosphatase 128, coags normal. Urinalysis 1-3 RBC/5-[address] of the chest was negative for a pulmonary embolism but revealed an acute left upper lobe lingula pneumonia and possibly an early right lower lobe pneumonia, with a trace left pleural effusion. Dopplers of both lower extremities were negative. X-ray of the left foot revealed soft tissue swelling of the toes, with apparent osteolysis of the distal phalanx of the second toe, compatible with osteomyelitis, and potential osteomyelitis of the distal phalanx of the third toe. She was admitted to the ICU, was begun on Ceftriaxone and Azithromycin and continued on prednisone. She has remained afebrile overnight. Her blood pressure, obtained with a different cuff, has improved and she is off pressors. At present her left chest pain is improved. She still notes a cough, which is nonproductive. She does not report other complaints. Allergies/Medications Allergies: Coded Allergies: morphine (Severe, MAKES HER CRAZY 03/06/16) Home Med List: Albuterol Sulfate (Proventil Hfa) 90 MCG HFA.AER.AD 2 PUF INH 4 TIMES/DAY PRN BREATHING (Reported) Budesonide/Formoterol Fumarate (Symbicort 160-4.5 Mcg Inhaler) 160 MCG-4.5 MCG/ ACTUATION HFA.AER.AD 2 PUF INH BID BREATHING (Reported) Diltiazem HCl (Cartia Xt) 120 MG CAP.ER.24H 1 CAP PO DAILY HEART (Reported) Duloxetine HCl 60 MG CAPSULE.DR 1 CAP PO DAILY MENTAL HEALTH (Reported) Esomeprazole (Nexium) 40 MG CAPSULE.DR 1 CAP PO DAILY GI (Reported) Gabapentin 300 MG CAPSULE 2 CAP PO TID PAIN (Reported) Quetiapine Fumarate 25 MG TABLET 1 TAB PO QPM SLEEP (Reported) Rivaroxaban (Xarelto) 20 MG TABLET 1 TAB PO DAILY BLOOD THINNER (Reported) with food Tiotropium [place] (Spiriva) 18 MCG CAP.W.DEV 1 CAP INH DAILY BREATHING ( Reported) Trazodone HCl 50 MG TABLET 2 TAB PO QPM SLEEP (Reported) Past History Travel History Traveled to [place] past 21 day No Medical History Blood Transfusion Hx: Yes Cardiovascular: AFIB, hypertension Respiratory: COPD Endocrine: diabetes Blood Disorders: DVT History of MRSA: No History of VRE: No History of CDIFF: No Isolation History: Standard Pneumonia Vaccine: 12/04/15 Influenza Vaccine: 02/03/16 Surgical History Surgical History: status post right lower extremity fracture, complicated by infection 1 1/2 years prior to admission, status post IVC filter Psychosocial History Where Do You Live? Home Services at Home: Nursing Smoking Status: Current Everyday Smoker Review of Systems Review of Systems All Other Systems: Reviewed and Negative Exam & Diagnostic Data Last 24 Hrs of Vital Signs/I&O Vital Signs Date Time Temp Pulse Resp B/P Pulse O2 O2 Flow FiO2 Ox Delivery Rate 03/07 0850 Nasal 3.0L Cannula 03/07 0850 91 Nasal 3.0L Cannula 03/07 0800 Nasal 3.0L Cannula 03/07 08 97.5 86 24 110/70 93 Nasal 3.0L Cannula 03/07 0452 94 Nasal 3.0L Cannula 03/07 045 97.6 89 31 98/39 95 Nasal 3.0L Cannula 03/07 0352 94 Nasal 3.0L Cannula 03/07 0248 97.9 72 24 98/66 95 Nasal 3.0L Cannula 03/07 0209 76 98/62 / 0155 82/58 03/07 0050 82/58 / 2342 97.6 90 20 72/00 95 Nasal 3.0L Cannula 03/06 2147 98.9 90 18 86/0 95 Room Air 03/06 2018 78/62 / 1946 78/0 03/06 1946 78/52 /02 1853 84/60 /02 1843 99.3 94 18 84/50 94 Nasal 3.0L Cannula 03/06 1748 120/50 /02 1723 99.0 85 22 84/56 94 Nasal 2.0L Cannula 03/06 1614 98.1 88 20 80/52 95 Nasal 3.0L Cannula 03/06 1457 96.6 89 20 121/52 95 Nasal 3.0L Cannula 03/06 1242 93 Nasal 3.0L Cannula 03/06 1221 96.5 93 26 106/72 90 Room Air Intake & Output 03/07 1600 03/07 0800 03/07 0000 Intake Total 662 3000 Output Total 600 160 Balance 62 2840 Intake, IV 562 3000 Intake, Oral 100 Output, Urine 600 160 Patient 325 lb Weight Physical Exam Other Physical Findings: She is awake and alert in no acute distress, but quite emotional and tearful. She is afebrile on steroids. Skin reveals no rash. HEENT exam is negative. Neck is supple with no adenopathy. Chest tender on palpation of the left chest. Lungs bilateral rhonchi. Heart regular rhythm with no murmur. Abdomen is obese, soft, nontender with positive bowel sounds. Back no CVA tenderness. Extremities swelling of the left second and third toes, with distal ulcerations, slightly necrotic, with no surrounding erythema or tenderness and no active drainage; right femoral triple-lumen catheter in place with no inflammation at the site; pulses 1+ and equal. Neuro is without focality. Cummins catheter is in place. Last 24 Hours of Lab Results: Laboratory Tests 03/07 03/07 03/07 0600 0400 0347 Chemistry Sodium (137 - 145 mmol/L) 130 L Potassium (3.5 - 5.1 mmol/L) 5.2 H Chloride (98 - 107 mmol/L) 93 L Carbon Dioxide (22 - 30 mmol/L) 20 L Anion Gap (5 - 16) 17 H BUN (7 - 17 mg/dL) 32 H Creatinine (0.5 - 1.0 mg/dL) 1.8 H Estimated GFR (>60 ml/min) 30 L BUN/Creatinine Ratio (7 - 25 %) 17.8 Phosphorus (2.5 - 4.5 mg/dL) 3.7 Magnesium (1.6 - 2.3 mg/dL) 1.5 L Troponin I (< 0.11 ng/ml) Cancelled < 0.01 Hematology CBC w Diff MAN DIFF ORDERED WBC (4.8 - 10.8 /CUMM) 18.4 H RBC (4.20 - 5.40 /CUMM) 3.80 L Hgb (12.0 - 16.0 G/DL) 12.3 Hct (37 - 47 %) 37.3 MCV (81.0 - 99.0 FL) 98.2 MCH (27.0 - 31.0 PG) 32.5 H RDW (11.5 - 14.5 %) 13.1 Plt Count (130 - 400 /CUMM) 199 MPV (7.4 - 10.4 FL) 10.5 H Gran % (42.2 - 75.2 %) 91.5 H Lymphocytes % (20.5 - 51.1 %) 4.0 L Monocytes % (1.7 - 9.3 %) 4.5 Eosinophils % (0 - 5 %) 0 Basophils % (0.0 - 2.0 %) 0 L Absolute Granulocytes (1.4 - 6.5 /CUMM) 16.8 H Segmented Neutrophils (42.2 - 75.2 %) 77 H Band Neutrophils (0.0 - 5.0 %) 10 H Absolute Lymphocytes (1.2 - 3.4 /CUMM) 0.7 L Lymphocytes (20.5 - 51.1 %) 7 L Monocytes (1.7 - 9.3 %) 6 Absolute Monocytes (0.10 - 0.60 /CUMM) 0.8 H Absolute Eosinophils (0.0 - 0.7 /CUMM) 0 Absolute Basophils (0.0 - 0.2 /CUMM) 0 Platelet Estimate (ADEQUATE) VERIFIED BY SMEAR Polychromasia 1+ Anisocytosis 1+ PUBS MCHC (33.0 - 37.0 G/DL) 33.1 03/07 03/06 03/06 03/06 0010 2344 2200 2119 Chemistry Lactic Acid (0.7 - 2.1 mmol/L) 1.3 2.2 H Troponin I (< 0.11 ng/ml) < 0.01 Toxicology Urine Opiates Screen (>2000 NG/ML) 841.00 Methadone Screen (>300 NG/ML) 121 Barbiturate Screen (>200 NG/ML) < 60 Ur Phencyclidine Scrn (>25 NG/ML) 22.00 Amphetamines Screen (>1000 NG/ML) < 100 U Benzodiazepines Scrn (>200 NG/ML) < 85 Urine Cocaine Screen (>300 NG/ML) < 50 Urine Cannabis Screen (>50 NG/ML) < 5.00 Urines Urinalysis MOD H Urine Color (YEL,AMB,STR) YEL Urine Clarity (CLEAR) CLEAR Urine pH (5.0 - 8.0) 6.0 Ur Specific [place] (1.001 - 1.035) 1.025 Urine Protein (NEG,<30 MG/DL) 100 H Urine Ketones (NEG) NEG Urine Nitrite (NEG) NEG Urine Bilirubin (NEG) NEG@ICTO Urine Urobilinogen (0.1 - 1.0 EU/dl) 0.2 Ur Leukocyte Esterase (NEG) NEG Ur Microscopic SEDIMENT EXAMINED Urine RBC (0 - 5 /HPF) 1-3 Urine WBC (0 - 2 /HPF) 5-10 H Ur Epithelial Cells (NONE,FEW) MOD H Urine Mucus (FEW,NONE) FEW Urine Hemoglobin (NEG) TRACE-INTACT Urine Glucose (N MG/DL) >=1000 H 03/06 1833 1231 Chemistry Sodium (137 - 145 mmol/L) 136 L Potassium (3.5 - 5.1 mmol/L) 4.1 Chloride (98 - 107 mmol/L) 96 L Carbon Dioxide (22 - 30 mmol/L) 26 Anion Gap (5 - 16) 14 BUN (7 - 17 mg/dL) 28 H Creatinine (0.5 - 1.0 mg/dL) 1.3 H Estimated GFR (>60 ml/min) 43 L BUN/Creatinine Ratio (7 - 25 %) 21.5 Glucose (65 - 99 mg/dL) 548 *H Calcium (8.4 - 10.2 mg/dL) 10.0 Total Bilirubin (0.2 - 1.3 mg/dL) 1.3 AST (14 - 36 U/L) 17 ALT (9 - 52 U/L) 42 Alkaline Phosphatase (<127 U/L) 128 H Troponin I (< 0.11 ng/ml) Cancelled < 0.01 < 0.01 Total Protein (6.3 - 8.2 g/dL) 7.5 Albumin (3.5 - 5.0 g/dL) 4.0 Globulin (1.9 - 4.2 gm/dL) 3.5 Albumin/Globulin Ratio (1.1 - 2.2 %) 1.1 Coagulation PT (9.4 - 12.5 SEC) 12.2 INR (0.90 - 1.19) 1.16 D-Dimer (70 - 232 ng/ml) 1973 H Hematology CBC w Diff MAN DIFF ORDERED WBC (4.8 - 10.8 /CUMM) 20.5 H RBC (4.20 - 5.40 /CUMM) 4.44 Hgb (12.0 - 16.0 G/DL) 14.3 Hct (37 - 47 %) 42.6 MCV (81.0 - 99.0 FL) 96.0 MCH (27.0 - 31.0 PG) 32.1 H RDW (11.5 - 14.5 %) 13.4 Plt Count (130 - 400 /CUMM) 230 MPV (7.4 - 10.4 FL) 9.8 Gran % (42.2 - 75.2 %) 89.5 H Lymphocytes % (20.5 - 51.1 %) 7.7 L Monocytes % (1.7 - 9.3 %) 2.5 Eosinophils % (0 - 5 %) 0.2 Basophils % (0.0 - 2.0 %) 0.1 Absolute Granulocytes (1.4 - 6.5 /CUMM) 18.4 H Segmented Neutrophils (42.2 - 75.2 %) 83 H Band Neutrophils (0.0 - 5.0 %) 7 H Absolute Lymphocytes (1.2 - 3.4 /CUMM) 1.6 Lymphocytes (20.5 - 51.1 %) 6 L Monocytes (1.7 - 9.3 %) 4 Absolute Monocytes (0.10 - 0.60 /CUMM) 0.5 Absolute Eosinophils (0.0 - 0.7 /CUMM) 0 Absolute Basophils (0.0 - 0.2 /CUMM) 0 Normocytic RBCs VERIFIED Normochromic RBCs VERIFIED PUBS MCHC (33.0 - 37.0 G/DL) 33.5 Last 24 Hours of [place] Results: Blood cultures March 06 negative Urine culture March 07 pending Diagnostic Data Recent Imaging Findings: CT of the chest negative for a pulmonary embolism but reveals an acute left upper lobe lingula pneumonia and possibly an early right lower lobe pneumonia, with a trace left pleural effusion. Dopplers of both lower extremities negative. X-ray of the left foot reveals soft tissue swelling of the toes, with apparent osteolysis of the distal phalanx of the second toe, compatible with osteomyelitis, and potential osteomyelitis of the distal phalanx of the third toe. Assessment/Plan Assessment/Plan Impression: This is a 50 year-old woman with diabetes, atrial fibrillation, maintained on Xarelto, and COPD, begun on Levaquin and prednisone 5 days prior to admission for a left lower lobe pneumonia, admitted on March 06 with a 2 day history of severe left-sided chest pain, found to be afebrile, mildly hypoxic, with a leukocytosis, and with the development of hypotension, requiring 5 L of fluid and Levophed, with a CT of the chest revealing a lingular pneumonia. The etiology of her hypotension is unclear. She may have sepsis secondary to her pneumonia, but her respiratory status is fairly stable and she had already received 5 days of Levaquin prior to admission, which should have adequately covered most causes of community acquired pneumonia. The left sided chest pain is most likely secondary to the pneumonia, but she has no effusion to suggest an empyema. With regard to the lesions on her toes, the x-ray suggests the possibility of an underlying osteomyelitis, but she has no evidence for any overlying infection; therefore do not feel that her foot represents a likely source of sepsis. Her increased creatinine may be secondary to the recent contrast she received or perhaps ATN secondary to sepsis; it is unlikely prerenal as she has received a significant amount of fluid. Her leukocytosis may be secondary to the pneumonia or another cause of sepsis, but it may also be secondary to the steroids, which she was on for 5 days prior to admission. Suggestion: 1. Repeat chest x-ray 2. Attempt to obtain a sputum culture 3. Would check a BNP 4. Urine for strep pneumo antigen and Legionella antigen 5. Would pursue an MRI of the left foot 6. Remove right femoral triple lumen catheter 7. Continue Ceftriaxone and Azithromycin pending above Consult Acknowledgment - Thank you for your consult request.
--- NOTE | 2016-03-07 12:16 | NUR ---
PT'S BLOOD SUGAR 431. PER MD AKERS GIVE 16 UNITS OF NOVOLOG, RECHECK SUGAR IN 1 HOUR, PT IS EATING LUNCH AT THIS TIME
--- NOTE | 2016-03-07 12:21 | NUR ---
PT STILL HAVING SPASMS CAUSING HER TO YELL OUT AND BE IN 10/10 PAIN. ONE TIME 0.2MG DILAUDID GIVEN PER EMAR. WILL MONITOR.
--- NOTE | 2016-03-07 14:00 | Cons- Podiatry ---
General Information and HPI Consulting Request Date of Consult: 03/07/16 Requested By: KATHERINE RESTREPO,KAYLA Yeung History of Present Illness: Shauna is a 50-year-old diabetic female who was admitted for complaint of chest pain with a recent diagnosis of pneumonia treated with Levaquin and prednisone. The patient was not noted to improve and presented to the ER with chest pain and spasms. On physical exam the patient was noted to have necrotic wounds to the distal tips of the left second third digits. The patient is unsure the duration of her lesions. Allergies/Medications Allergies: Coded Allergies: morphine (Severe, MAKES HER CRAZY 03/06/16) Home Med List: Albuterol Sulfate (Proventil Hfa) 90 MCG HFA.AER.AD 2 PUF INH 4 TIMES/DAY PRN BREATHING (Reported) Budesonide/Formoterol Fumarate (Symbicort 160-4.5 Mcg Inhaler) 160 MCG-4.5 MCG/ ACTUATION HFA.AER.AD 2 PUF INH BID BREATHING (Reported) Diltiazem HCl (Cartia Xt) 120 MG CAP.ER.24H 1 CAP PO DAILY HEART (Reported) Duloxetine HCl 60 MG CAPSULE.DR 1 CAP PO DAILY MENTAL HEALTH (Reported) Esomeprazole (Nexium) 40 MG CAPSULE.DR 1 CAP PO DAILY GI (Reported) Gabapentin 300 MG CAPSULE 2 CAP PO TID PAIN (Reported) Quetiapine Fumarate 25 MG TABLET 1 TAB PO QPM SLEEP (Reported) Rivaroxaban (Xarelto) 20 MG TABLET 1 TAB PO DAILY BLOOD THINNER (Reported) with food Tiotropium [place] (Spiriva) 18 MCG CAP.W.DEV 1 CAP INH DAILY BREATHING ( Reported) Trazodone HCl 50 MG TABLET 2 TAB PO QPM SLEEP (Reported) Past History Medical History Blood Transfusion Hx: Yes Cardiovascular: AFIB, hypertension Respiratory: COPD Endocrine: diabetes Blood Disorders: DVT Surgical History Pertinent Surgical History: status post right lower extremity fracture, complicated by infection 1 1/2 years prior to admission status post IVC filter Psychosocial History Where Do You Live? Home Services at Home: Nursing Smoking Status: Current Everyday Smoker Review of Systems Review of Systems: Unremarkable except for that noted in history of present illness Exam & Diagnostic Data Vital Signs and I&O Vital Signs Date Time Temp Pulse Resp B/P Pulse O2 O2 Flow FiO2 Ox Delivery Rate 03/07 1200 Nasal 6.0L Cannula 03/07 0850 Nasal 3.0L Cannula 03/07 0850 91 Nasal 3.0L Cannula 03/07 0800 Nasal 3.0L Cannula 03/07 0800 97.5 86 24 110/70 93 Nasal 3.0L Cannula 03/07 0452 94 Nasal 3.0L Cannula 03/07 0452 97.6 89 31 98/39 95 Nasal 3.0L Cannula 03/07 0352 94 Nasal 3.0L Cannula 03/07 0248 97.9 72 24 98/66 95 Nasal 3.0L Cannula 03/07 0209 76 98/62 /03 0155 82/58 /03 0050 82/58 /02 2342 97.6 90 20 72/00 95 Nasal 3.0L Cannula 03/06 2147 98.9 90 18 86/0 95 Room Air 03/06 2018 78/62 /02 1946 78/0 03/06 1946 78/52 02 1853 84/60 /02 1843 99.3 94 18 84/50 94 Nasal 3.0L Cannula 03/06 1748 120/50 /02 1723 99.0 85 22 84/56 94 Nasal 2.0L Cannula 03/06 1614 98.1 88 20 80/52 95 Nasal 3.0L Cannula 03/06 1457 96.6 89 20 121/52 95 Nasal 3.0L Cannula Intake & Output 03/07 1600 03/07 0800 03/07 0000 03/06 1600 03/06 0800 03/06 0000 Intake Total 662 3000 0 Output Total 600 160 Balance 62 2840 0 Intake, IV 562 3000 Intake, Oral 100 0 Output, Urine 600 160 Patient 325 lb 324 lb Weight Physical Exam: Patient noted to have a full-thickness ulcer to the distal tip of the left second digit and a Hansen grade 2 lesion to the distal tip of the third digit. There is slough overlying a mixed granular fibrotic wound bed. No undermining identified. No fluctuance or crepitus noted. Assessment/Plan Assessment/Plan Necrotic ulcers to the distal second third digits left foot. Based on x-ray findings, patient likely has an osteomyelitis to her second digit with possible changes to the third. Awaiting MRI for more definitive diagnosis. Patient will likely require a digital amputation pending the MRI findings, if she is medically stable. For now Xeroform and dry sterile dressing to the lesions is adequate. Consult Acknowledgment - Thank you for your consult request. Attending MD Review Statement Attending Statement Attending MD Statement: examined this patient
--- NOTE | 2016-03-07 15:09 | Cons- Endocrinology ---
General Information and HPI Consulting Request Date of Consult: 03/07/16 Requested By: ICU team Reason for Consult: management of DM type 2, steroid related hyperglycemia. Source of Information: patient, old records Exam Limitations: no limitations History of Present Illness: 50-year-old active smoker lady with past medical history significant for COPD, diabetes type 2 on metformin, hypertension, atrial fibrillation, was in ICU for COPD/pneumonia and hypotension. She was put on prednisone 40 mg twice a day and antibiotics. She was on Levophed drip which was off approximately 2 hours ago. Her glucose levels were > 400. Allergies/Medications Allergies: Coded Allergies: morphine (Severe, MAKES HER CRAZY 03/06/16) Home Med List: Albuterol Sulfate (Proventil Hfa) 90 MCG HFA.AER.AD 2 PUF INH 4 TIMES/DAY PRN BREATHING (Reported) Budesonide/Formoterol Fumarate (Symbicort 160-4.5 Mcg Inhaler) 160 MCG-4.5 MCG/ ACTUATION HFA.AER.AD 2 PUF INH BID BREATHING (Reported) Diltiazem HCl (Cartia Xt) 120 MG CAP.ER.24H 1 CAP PO DAILY HEART (Reported) Duloxetine HCl 60 MG CAPSULE.DR 1 CAP PO DAILY MENTAL HEALTH (Reported) Esomeprazole (Nexium) 40 MG CAPSULE.DR 1 CAP PO DAILY GI (Reported) Gabapentin 300 MG CAPSULE 2 CAP PO TID PAIN (Reported) Quetiapine Fumarate 25 MG TABLET 1 TAB PO QPM SLEEP (Reported) Rivaroxaban (Xarelto) 20 MG TABLET 1 TAB PO DAILY BLOOD THINNER (Reported) with food Tiotropium [place] (Spiriva) 18 MCG CAP.W.DEV 1 CAP INH DAILY BREATHING ( Reported) Trazodone HCl 50 MG TABLET 2 TAB PO QPM SLEEP (Reported) Review of Systems Review of Systems Constitutional: Reports: see HPI, weakness. Cardiovascular: Reports: orthopena. Respiratory: Reports: cough, short of breath. GI: Denies: abdominal pain. Genitourinary: Denies: dysuria. Hematologic/Endocrine: Denies: polyuria, polydipsia. Past History Travel History Traveled to [place] past 21 day No Medical History Blood Transfusion Hx: Yes Cardiovascular: AFIB, hypertension Respiratory: COPD Endocrine: diabetes Blood Disorders: DVT Surgical History Surgical History: status post right lower extremity fracture, complicated by infection 1 1/2 years prior to admission status post IVC filter Psychosocial History Where Do You Live? Home Services at Home: Nursing Smoking Status: Current Everyday Smoker Exam & Diagnostic Data Last 24 Hrs of Vital Signs/I&O Vital Signs Date Time Temp Pulse Resp B/P Pulse O2 O2 Flow FiO2 Ox Delivery Rate 03/07 1200 Nasal 6.0L Cannula 03/07 0850 Nasal 3.0L Cannula 03/07 0850 91 Nasal 3.0L Cannula 03/07 0800 Nasal 3.0L Cannula 03/07 0800 97.5 86 24 110/70 93 Nasal 3.0L Cannula 03/07 0452 94 Nasal 3.0L Cannula 03/07 0452 97.6 89 31 98/39 95 Nasal 3.0L Cannula 03/07 0352 94 Nasal 3.0L Cannula 03/07 0248 97.9 72 24 98/66 95 Nasal 3.0L Cannula 03/07 0209 76 98/62 03/07 0155 82/58 03/07 0050 82/58 03/06 2342 97.6 90 20 72/00 95 Nasal 3.0L Cannula 03/06 2147 98.9 90 18 86/0 95 Room Air 03/06 2019 78/62 03/06 1946 78/0 02 1946 78/52 02 1853 84/60 /02 1843 99.3 94 18 84/50 94 Nasal 3.0L Cannula 03/06 1748 120/50 03/06 1723 99.0 85 22 84/56 94 Nasal 2.0L Cannula 03/06 1614 98.1 88 20 80/52 95 Nasal 3.0L Cannula Intake & Output 03/07 1600 03/07 0800 03/07 0000 Intake Total 2744.3 662 3000 Output Total 1700 600 160 Balance 1044.3 62 2840 Intake, IV 1304.3 562 3000 Intake, Oral 1440 100 Number 0 Bowel Movements Output, Urine 1700 600 160 Patient 325 lb Weight Physical Exam General Appearance: mild distress, obese Neck: normal inspection Respiratory: crackles, wheezing Cardiovascular: tachycardia (mild) Gastrointestinal: soft Extremities: no edema Labs/Chase Results: Laboratory Tests 03/07 03/07 03/07 1245 0600 0400 Chemistry Hemoglobin A1c Pending Troponin I Cancelled Hematology CBC w Diff MAN DIFF ORDERED WBC (4.8 - 10.8 /CUMM) 18.4 H RBC (4.20 - 5.40 /CUMM) 3.80 L Hgb (12.0 - 16.0 G/DL) 12.3 Hct (37 - 47 %) 37.3 MCV (81.0 - 99.0 FL) 98.2 MCH (27.0 - 31.0 PG) 32.5 H RDW (11.5 - 14.5 %) 13.1 Plt Count (130 - 400 /CUMM) 199 MPV (7.4 - 10.4 FL) 10.5 H Gran % (42.2 - 75.2 %) 91.5 H Lymphocytes % (20.5 - 51.1 %) 4.0 L Monocytes % (1.7 - 9.3 %) 4.5 Eosinophils % (0 - 5 %) 0 Basophils % (0.0 - 2.0 %) 0 L Absolute Granulocytes (1.4 - 6.5 /CUMM) 16.8 H Segmented Neutrophils (42.2 - 75.2 %) 77 H Band Neutrophils (0.0 - 5.0 %) 10 H Absolute Lymphocytes (1.2 - 3.4 /CUMM) 0.7 L Lymphocytes (20.5 - 51.1 %) 7 L Monocytes (1.7 - 9.3 %) 6 Absolute Monocytes (0.10 - 0.60 /CUMM) 0.8 H Absolute Eosinophils (0.0 - 0.7 /CUMM) 0 Absolute Basophils (0.0 - 0.2 /CUMM) 0 Platelet Estimate (ADEQUATE) VERIFIED BY SMEAR Polychromasia 1+ Anisocytosis 1+ PUBS MCHC (33.0 - 37.0 G/DL) 33.1 03/07 03/07 03/06 03/06 0347 0010 2344 2200 Chemistry Sodium (137 - 145 mmol/L) 130 L Potassium (3.5 - 5.1 mmol/L) 5.2 H Chloride (98 - 107 mmol/L) 93 L Carbon Dioxide (22 - 30 mmol/L) 20 L Anion Gap (5 - 16) 17 H BUN (7 - 17 mg/dL) 32 H Creatinine (0.5 - 1.0 mg/dL) 1.8 H Estimated GFR (>60 ml/min) 30 L BUN/Creatinine Ratio (7 - 25 %) 17.8 Lactic Acid (0.7 - 2.1 mmol/L) 1.3 Phosphorus (2.5 - 4.5 mg/dL) 3.7 Magnesium (1.6 - 2.3 mg/dL) 1.5 L Troponin I (< 0.11 ng/ml) < 0.01 < 0.01 Pce-B-Qgtobyliqlf Pept (<125 pg/mL) 234 H Toxicology Urine Opiates Screen (>2000 NG/ML) 841.00 Methadone Screen (>300 NG/ML) 121 Barbiturate Screen (>200 NG/ML) < 60 Ur Phencyclidine Scrn (>25 NG/ML) 22.00 Amphetamines Screen (>1000 NG/ML) < 100 U Benzodiazepines Scrn (>200 NG/ML) < 85 Urine Cocaine Screen (>300 NG/ML) < 50 Urine Cannabis Screen (>50 NG/ML) < 5.00 Urines Urinalysis MOD H Urine Color (YEL,AMB,STR) YEL Urine Clarity (CLEAR) CLEAR Urine pH (5.0 - 8.0) 6.0 Ur Specific [place] (1.001 - 1.035) 1.025 Urine Protein (NEG,<30 MG/DL) 100 H Urine Ketones (NEG) NEG Urine Nitrite (NEG) NEG Urine Bilirubin (NEG) NEG@ICTO Urine Urobilinogen (0.1 - 1.0 EU/dl) 0.2 Ur Leukocyte Esterase (NEG) NEG Ur Microscopic SEDIMENT EXAMINED Urine RBC (0 - 5 /HPF) 1-3 Urine WBC (0 - 2 /HPF) 5-10 H Ur Epithelial Cells (NONE,FEW) MOD H Urine Mucus (FEW,NONE) FEW Urine Hemoglobin (NEG) TRACE-INTACT Urine Glucose (N MG/DL) >=1000 H 03/069 1999 1833 Chemistry Lactic Acid (0.7 - 2.1 mmol/L) 2.2 H Troponin I (< 0.11 ng/ml) Cancelled < 0.01 Assessment/Plan Assessment/Plan 50-year-old active smoker lady with past medical history significant for COPD, diabetes type 2 on metformin, hypertension, atrial fibrillation, was in ICU for COPD/pneumonia and hypotension. She was put on prednisone 40 mg twice a day and antibiotics. She was on Levophed drip which was off approximately 2 hours ago. Her glucose levels were > 400. 1. start Levemir 20 units twice a day with first dose now and additional Novolog 10 units x1 as her repeat FSG was 413. 2. adjust Novolog coverage before meals and add Novolog coverage at bedtime; 3. will consider insulin drip if her glucose level remains elevated. will follow. Inpatient Diabetes Orders Before Each Meal: Bolus Insulin: Novolog < 80 mg/dl: no coverage 80-100 mg/dl: 8 units 101-120 mg/dl: 8 units 121-150 mg/dl: 8 units 151-200 mg/dl: 11 units 201-250 mg/dl: 14 units 251-300 mg/dl: 17 units 301-350 mg/dl: 20 units 351-400 mg/dl: 22 units > 400 mg/dl: 24 units Bedtime: Bolus Insulin: Novolog < 80 mg/dl: no coverage 80-100 mg/dl: no coverage 101-120 mg/dl: no coverage 121-150 mg/dl: no coverage 151-200 mg/dl: no coverage 201-250 mg/dl: no coverage 251-300 mg/dl: 4 units 301-350 mg/dl: 6 units 351-400 mg/dl: 8 units > 400 mg/dl: 10 units Consult Acknowledgment - Thank you for your consult request.
--- NOTE | 2016-03-07 15:35 | RADIOLOGY REPORT ---
EXAMINATION: XR PORTABLE CHEST CLINICAL INFORMATION: Shortness of breath COMPARISON: CT 03/06/2016 TECHNIQUE: Portable view of the chest was obtained. FINDINGS: In comparison to the prior examination there is a new small left pleural effusion. Adjacent regions of opacity are present in the mid to basilar left lung, also increased from prior. There is mild linear right basilar opacity consistent with subsegmental atelectasis. No evidence of pneumothorax or overt pulmonary edema. The cardiomediastinal silhouette is grossly stable. No acute osseous findings are seen. IMPRESSION: Increasing mid to basilar left lung opacity, along with a new small left pleural effusion.
[2016-03-07 16:00] VITALS: BP 140/70
--- NOTE | 2016-03-07 16:25 | NUR ---
BLOOD SUGAR 398 PER MD AMBROSIO AND DR ANN GIVE PT 22 UNITS NOVOLOG PER SLIDING SCALE ALONE WITH 15 UNITS NOVOLOG EXTRA. RECHECK BLOOD SUGAR AT 1700.
[2016-03-08] VITALS: BP 108/60
--- NOTE | 2016-03-08 00:52 | NUR ---
2000 REC'D PT IN BED. PT VERY ANXIOUS & HAS FLUSHED FACE. CLAMMY/DIAPHORTIC. REASSURANCE GIVEN C/O L SIDE CHEST PAIN AREA. MEDICATED W/ROXICODONE SEE EMAR. SR ON THE MONITOR HR IN 70-80'S, SBP 100-110'S. OFF THE LEVO GTT SINCE 10AM. SBP RANGES FROM 100-120'S SEE ICU VS SHEET. ON IVF NS @75ML/HR. STARTED ON INSULIN GTT @4U/HR. BS 365. ACCUCHECK Q1HR. FC INSITU & DRAINING JEREMIE COLOR URINE GOOD AMT. 2200 ON BEDPAN BUT NO BM JUST FLATUS OR. HS CARE GIVEN. NEEDED 4 STAFF TO BOOST PT UP IN BED. STILL C/O OF L SIDED SPASM. MEDICATED W/LEVSIN PO. AFTER 30MINS PT STATED NO MORE SPASM. CONT TO MONITOR. 0000 C/O OF FEELING HOT. <THERMOSTAT IN THE ROOM & PLACED A FAN.
[2016-03-08 05:38] LABS: ABSOLUTE BASOPHIL COUNT 0 /CUMM (0.0-0.2); ABSOLUTE EOSINOPHIL COUNT 0 /CUMM (0.0-0.7); ABSOLUTE GRANULOCYTE CT 12.9 /CUMM (1.4-6.5); ABSOLUTE LYMPH COUNT 0.9 /CUMM (1.2-3.4); ABSOLUTE MONOCYTE COUNT 0.9 /CUMM (0.10-0.60); BASOPHIL % 0 % (0.0-2.0); EOSINOPHIL % 0 % (0-5); HEMATOCRIT 34.2 % (37-47); MEAN CORPUSCULAR HGB 32.8 PG (27.0-31.0); MEAN CORPUSCULAR HGB CONC 33.7 G/DL (33.0-37.0); MEAN CORPUSCULAR VOLUME 97.4 FL (81.0-99.0); PLATELET COUNT 219 /CUMM (130-400); RBC DISTRIBUTION WIDTH 13.4 % (11.5-14.5); RED BLOOD CELL CT 3.51 /CUMM (4.20-5.40); WHITE BLOOD CELL COUNT 14.7 /CUMM (4.8-10.8)
--- NOTE | 2016-03-08 07:44 | PN- Resident CRCU ---
MARRY RESTREPO,DAILY 03/08/16 0744: Subjective HPI/CRCU Issues: Patient is a 50 YO F with PMH significant for A.Fib (on xarelto), COPD, T2DM, HTN came to the ER with chest pain radiating to the left arm and shortness of breath. She failed antimicrobial therapy with levofloxacin & steroid therapy as an outpatient. On examination she is also found to have a wound on her left foot along with high sugar (probably secondary to recent steroid intake). Her D-Dimer is around 2000. Doppler is negative for DVT, CTA negative for PE but shows RLL and DEBBI pneumonia. Blood sugars at admission is 548. Initially she was admitted to telemtry and subsequently found to be profoundly hypotensive after 4L of fluids and transfered to unit for pressors/central line placement while on xarelto. she was placed on a femoral central line eventually and started on levophed. Later she was found to have normal BP with a manual cuff and she was gradually tapered off the drip. As her Creatinine is 1.3 at admission, followed by increase to 1.8 after CTA. After adequate hydration her creatinine today is 0.9. Her blood cultures are positive for MRSA and today she revealed that she is positive for MRSA left foot in the past. 24 Hour Events: I saw and examined the patient today morning. She is feeling much better today and her breathing improved. But still feels pain near her left abdomen, possibly pleuritic pain form pneumonia. No nausea, vomiting, diarrhea. Yesterday her femoral Central line is removed. Objective Vital Signs & I&O Last 8 Hrs of Vitals and I&O: VS Afebrile, HR in NSR in 80's, BP 100-120/60-80mmHg, satuarting 89% on 5L NC I/O - 4963/3600 with a positive balance of 1400 Exam General Appearance: no apparent distress, alert, awake, comfortable Head: atraumatic, normal appearance Ears, Nose, Throat: normal pharynx, normal ENT inspection, hearing grossly normal Neck: normal inspection, supple Respiratory: normal breath sounds, chest non-tender, no respiratory distress Cardiovascular: regular rate/rhythm, normal peripheral pulses Gastrointestinal: normal bowel sounds, soft, non-tender Extremities: normal inspection, normal capillary refill, normal range of motion Cranial Nerves: normal hearing, normal speech, PERRL Skin: intact Nutrition Nutrition: P.O. diet Current Medications: Current Medications Sig/Teresita Start time Last Medication Dose Route Stop Time Status Admin Acetaminophen 650 MG Q6P PRN 03/06 1615 AC 03/06 PO 2329 Albuterol Sulfate 3 ML EVERY 4 HRS/AWAKE 03/07 0900 AC 03/08 INH 1303 Azithromycin 500 MG 1830 03/07 1830 DC 03/07 Sodium Chloride 250 ML IV 1745 Budesonide/ 2 PUF BID 03/07 1000 AC 03/08 Formoterol Fumarate INH 1016 Cyclobenzaprine HCl 5 MG ONCE PRN 03/06 1530 AC 03/07 PO 0435 Diltiazem HCl 120 MG DAILY 03/06 1603 AC 03/08 PO 1012 Duloxetine HCl 60 MG DAILY 03/06 1603 AC 03/08 PO 1011 Gabapentin 600 MG Q8 03/07 0000 AC 03/08 PO 1328 Hyoscyamine 0.125 MG Q4 HRS NEEDED PRN 03/07 1000 AC 03/08 PO 1016 Insulin Aspart 0 TIDAC/HS 03/08 1200 AC 03/08 SC 1657 Insulin Aspart 0 TIDAC/HS 03/07 1700 DC 03/07 SC 1621 Insulin Detemir 25 UNITS BID 03/08 2200 AC SC Insulin Detemir 36 UNITS BID 03/08 1000 DC 03/08 SC 1011 Insulin Detemir 20 UNITS BID 03/07 1235 DC 03/07 SC 1257 Insulin Human Regular 100 UNIT Q24H 03/07 2245 DC 03/08 Sodium Chloride 100 ML IV 0505 Insulin Human Regular 100 UNIT Q24H 03/07 1715 DC 03/07 Sodium Chloride 100 ML IV 1959 Omeprazole 40 MG DAILY AC 03/06 1604 AC 03/08 PO 0531 Oxycodone HCl 5 MG Q8P PRN 03/06 1600 AC 03/08 PO 1842 Phosphate 250 MG ONCE ONE 03/08 0715 DC 03/08 PO 03/08 0716 1013 Prednisone 30 MG DAILY 03/09 1000 AC PO Prednisone 40 MG BID 03/06 2200 DC 03/07 PO 2110 Quetiapine Fumarate 25 MG QPM 03/06 2200 AC 03/07 PO 2111 Rivaroxaban 20 MG DAILY 03/06 1552 AC 03/08 PO 1011 Sodium Chloride 1,000 ML Q10H 03/06 1545 DC 03/07 IV 1415 Tiotropium [place] 1 PUF DAILY 03/07 1000 AC 03/08 INH 1012 Trazodone HCl 100 MG QPM 03/06 2200 AC 03/07 PO 2110 Vancomycin HCl 2,000 MG Q12H 03/08 1200 AC 03/08 Sodium Chloride 500 ML IV 1328 Vancomycin HCl 2,000 MG Q12 03/08 1126 CAN Sodium Chloride 250 ML IV Results Cultures: Culture: blood culture Date: 03/08/16 Isolate: MRSA Impression/Plan Impression/Problem List Impression: Patient is a 50 YO F with PMH significant for A.Fib (on xarelto), COPD, T2DM, HTN came to the ER with chest pain radiating to the left arm and shortness of breath. She failed antimicrobial therapy with levofloxacin & steroid therapy as an outpatient. On examination she is also found to have a wound on her left foot along with high sugar (probably secondary to recent steroid intake). Her D-Dimer is around 2000. Doppler is negative for DVT, CTA negative for PE but shows RLL and DEBBI pneumonia. Blood sugars at admission is 548. Initially she was admitted to telemtry and subsequently found to be profoundly hypotensive after 4L of fluids and transfered to unit for pressors/central line placement while on xarelto. she was placed on a femoral central line eventually and started on levophed. Later she was found to have normal BP with a manual cuff and she was gradually tapered off the drip. Her blood sugars are in 400's throughout the day although insulin sliding scale is increased. Probably because of steroid intake. PLAN MRSA osteomyelitis and multilobar pneumonia * CT angio demonstrated left lower lobe and right upper lobe pneumonia. * Nectrotic ulcers present on distal second third left foot. Foot Xray shows osteolysis of left foot 2nd toe - podiatry consulted. * MRI of left foot not done as she had an IVC filter whose compatibility with MRI is unknown. * Blood cultures X 2 positive for MRSA. * Requested medical records from [facility] for post op report regarding her IVC filter placement. * As her creatinine improved she was started on vancomycin 2gm Q12 after discontinuation of ceftriaxone and azithromycin. * Random vancomycin level today is 13. * Placed on quick prednisone taper - 30mg X2, 20X2, 10X1. * A left chest ultrasound is requested to rule out any pleural effusion. Type 2 Diabetes Mellitus * blood sugars are in 300's through out the night, On insulin drip. * Morning she was off the drip and her steroids are tapered very fast as of her sugars * Placed on levemir 25untis BID and novolg sliding scale * HbA1C level - 11.9 * Endocrine consulted - is on board. * will readjust scale depending on her sugar levels today. JOSE L * creatinine at admission is 1.3(baseline 1.8) * After CT angio it is incresed to 1.8 as a result of contrast induced nephropathy. * she was placed on fluids and her creatinine came down to 0.9 today. * Resolved. A.Fib * On xarelto History of COPD * TRC/Nebs Problem List: 1. Pneumonia 2. JOSE L (acute kidney injury) 3. Pneumonia 4. COPD exacerbation 5. Muscle spasm 6. Diabetes 7. Septic shock Pain Ratin Tomorrow's Labs & Rationales: ICU bundle CBC Plan DVT/Prophylaxis: On xarelto Code Status: Full Code TI PUTNAM MD 03/08/16 1117: Attending MD Review Statement Attending Sign Off Attending Cosign Statement: I have: examined this patient, reviewed avalbl EMR data, personally reviewd images, discussd w/resident/PA/EVP STRATEGY, discussed mgmt plan w/darron, discussed mgmt plan w/CM, discussed mgmt plan w/pt, agreed w/resident/PA/EVP STRATEGY, amended to note. Other Findings: Ti Loya M.D. have examined this patient, reviewed available EMR data, personally reviewed images, discussed with resident/PA/EVP STRATEGY, discussed management plan with housestaff and nursing staff, discussed managment plan all of healthcare providers, discussed management plan with patient and/or family, agreed with resident/PA/EVP STRATEGY. The past history and parts of the chart have been autopopulated. TTS 35 min f/u ID recommendations MRI of left foot would repeat CXR in am MRSA bacteremia ECHO follow up f/u ID recommendations MRI of left foot would repeat CXR in am MRSA bacteremia ECHO follow up
[2016-03-08 08:00] VITALS: BP 120/80
--- NOTE | 2016-03-08 08:30 | NUR ---
REC'D THE PT SITTING UP IN BED EATING BREAKFAST. PT IS A&OX3,CORTES. OFFERS NO C/O. PT IS IN A 1ST DEGREE AVB, NO ECTOPY NOTED. BILS BS ARE CLEAR BUT DIMINISHED PROBABLY SECONDARY TO BODY HABITUS. PT HAS A NONPRODUCTIVE COUGH. C/O PAIN TO THE L SIDE WHEN COUGHS, PT GIVEN PILLOW TO BRACE SIDE. ABD IS OBESE BUT SOFT WITH NORMOACTIVE BOWEL SOUNDS. PAYNE IN PLACE DRAINING ADEQUATE AMOUNTS OF LIGHT JEREMIE URINE. PT CONTINUES ON THE INSULIN GTT AT 3U/HR. FSG AT 0800 WAS 220. PT RECEIVING NS AT 75ML/HR.
--- NOTE | 2016-03-08 09:09 | NUR ---
DR DAILY TUTTLE NOTIFIED THE PT'S FSG FROM 0900 WAS 327. PER THE INSULIN GTT IS TOREMAIN AT 3U/HR. LEVEMIR 36UNITS IS TO BE ADMIISTERED AT 1000 WITHA REPEAT FSG AT 1100-IF OK THEN THE INSULIN GTTIS TO BE DC'D.
--- NOTE | 2016-03-08 10:37 | PN- Infect Dx ---
Subjective Subjective: Afebrile. She feels improved but still reports left chest spasms. She continues to have a cough, productive of white sputum, but denies shortness of breath at rest. Objective Last 24 Hrs of Vital Signs/I&O Vital Signs Date Time Temp Pulse Resp B/P Pulse O2 O2 Flow FiO2 Ox Delivery Rate 03/08 09 92 Nasal 5.0L Cannula 03/08 08 93 Nasal 5.0L Cannula 03/08 799 97.4 74 20 120/80 93 Nasal 5.0L Cannula 03/08 0400 93 Nasal 5.0L Cannula 03/08 0000 97.4 76 25 108/60 95 Nasal 5.0L Cannula 03/08 0000 95 Nasal 5.0L Cannula 03/07 1999 93 Nasal 5.0L Cannula 03/07 1719 94 Nasal 5.0L Cannula 03/07 1600 Nasal 5.0L Cannula 03/07 1600 96.8 86 18 140/70 93 Nasal 5.0L Cannula 03/07 1200 Nasal 6.0L Cannula Intake & Output 03/08 1600 03/08 0800 03/08 0000 Intake Total 765 1454 Output Total 500 1400 Balance 265 54 Intake, IV 665 854 Intake, Oral 100 600 Number 0 0 Bowel Movements Output, Urine 500 1400 Physical Exam Other Physical Findings: She appears more comfortable in no acute distress Lungs bilateral rhonchi Chest tender over the left chest wall Heart regular rhythm with no murmur Abdomen is obese, soft, nontender with positive bowel sounds Extremities no cyanosis, clubbing or edema; distal aspects of the left second and third toes necrotic with no surrounding erythema or tenderness Cummins catheter remains in place Results Last 24 Hours of Lab Results: Laboratory Tests 03/08 03/07 03/07 0425 1750 1245 Chemistry Sodium (137 - 145 mmol/L) 137 130 L Potassium (3.5 - 5.1 mmol/L) 4.3 4.7 Chloride (98 - 107 mmol/L) 102 96 L Carbon Dioxide (22 - 30 mmol/L) 24 22 Anion Gap (5 - 16) 11 13 BUN (7 - 17 mg/dL) 24 H 28 H Creatinine (0.5 - 1.0 mg/dL) 0.9 1.2 H Estimated GFR (>60 ml/min) > 60 47 L BUN/Creatinine Ratio (7 - 25 %) 23.3 Glucose (65 - 99 mg/dL) 170 H 440 H Hemoglobin A1c (<5.7) 11.9 H Calcium (8.4 - 10.2 mg/dL) 8.4 8.0 L Phosphorus (2.5 - 4.5 mg/dL) 3.1 3.1 Magnesium (1.6 - 2.3 mg/dL) 2.4 H 2.3 Total Bilirubin (0.2 - 1.3 mg/dL) 0.4 0.5 AST (14 - 36 U/L) 10 L 13 L ALT (9 - 52 U/L) 27 29 Albumin (3.5 - 5.0 g/dL) 2.8 L 2.8 L Hematology CBC w Diff NO MAN DIFF REQ WBC (4.8 - 10.8 /CUMM) 14.7 H RBC (4.20 - 5.40 /CUMM) 3.51 L Hgb (12.0 - 16.0 G/DL) 11.5 L Hct (37 - 47 %) 34.2 L MCV (81.0 - 99.0 FL) 97.4 MCH (27.0 - 31.0 PG) 32.8 H RDW (11.5 - 14.5 %) 13.4 Plt Count (130 - 400 /CUMM) 219 MPV (7.4 - 10.4 FL) 10.0 Gran % (42.2 - 75.2 %) 88.0 H Lymphocytes % (20.5 - 51.1 %) 5.9 L Monocytes % (1.7 - 9.3 %) 6.1 Eosinophils % (0 - 5 %) 0 Basophils % (0.0 - 2.0 %) 0 L Absolute Granulocytes (1.4 - 6.5 /CUMM) 12.9 H Absolute Lymphocytes (1.2 - 3.4 /CUMM) 0.9 L Absolute Monocytes (0.10 - 0.60 /CUMM) 0.9 H Absolute Eosinophils (0.0 - 0.7 /CUMM) 0 Absolute Basophils (0.0 - 0.2 /CUMM) 0 PUBS MCHC (33.0 - 37.0 G/DL) 33.7 Toxicology Random Vancomycin (ug/ml) 13.7 Last 24 Hours of Chase Results: Blood cultures March 06 positive for MRSA Blood cultures March 07 negative so far Urine culture March 07 negative Urine strep pneumo antigen and Legionella antigen March 07 negative Recent Imaging Studies: Chest x-ray March 07 increasing mid to basal left lung opacity with a small left pleural effusion Assessment/Plan Impression: Clinical improvement with temperatures remaining normal, blood pressure stable off pressors and white blood cell count decreasing on Vancomycin, begun yesterday based on the report of positive blood cultures for gram-positive cocci , which have been identified as MRSA. The most likely source of her sepsis appears to be pulmonary, with the left lung density noted on CT and chest x-ray and with ongoing hypoxia. Her left pleuritic pain raises concern for possible empyema, though the recent CT scan only revealed a trace pleural effusion. Her left second and third toes are also possible sources of sepsis, with underlying osteomyelitis suggested on the recent x-rays, though there is no surrounding inflammation. Her renal function has normalized, and she will need to be redosed with Vancomycin. She apparently has been continued on Azithromycin, but this can be discontinued. Suggestion: 1. Would obtain a sputum culture 2. Echocardiogram 3. Await MRI of the left foot 4. Consider ultrasound of the left chest if her pleuritic pain persists to rule out an increasing effusion that might require thoracentesis 5. Remove Cummins catheter 6. Discontinue Azithromycin 7. Re-dose with Vancomycin 2 grams IV and continue 2 grams IV every 12 hours
--- NOTE | 2016-03-08 11:04 | PN- Diabetes ---
Assessment/Plan Assessment: 50-year-old active smoker lady with past medical history significant for COPD, diabetes type 2 on metformin, hypertension, atrial fibrillation, was in ICU for COPD/pneumonia and hypotension. She was put on prednisone 40 mg twice a day and antibiotics. She was on Levophed drip which was off in the morning on 03/07/2016. Her glucose levels were > 400 and she was on an insulin drip overnight. Her morning FSG was 190 and she was on insulin drip at 3 units per hour. Prednisone will be decreased to 30 mg daily today. Plan: 1. start Levemir 25 units twice a day; 2. stop insulin drip. 3. start Novolog coverage before meals and Novolog coverage at bedtime--detail see the inpatient DM orders; 4. monitor FSGs. will follow. Inpatient Diabetes Orders Before Each Meal: Bolus Insulin: Novolog < 80 mg/dl: no coverage 80-100 mg/dl: 8 units 101-120 mg/dl: 8 units 121-150 mg/dl: 8 units 151-200 mg/dl: 11 units 201-250 mg/dl: 14 units 251-300 mg/dl: 17 units 301-350 mg/dl: 20 units 351-400 mg/dl: 22 units > 400 mg/dl: 24 units Bedtime: Bolus Insulin: Novolog < 80 mg/dl: no coverage 80-100 mg/dl: no coverage 101-120 mg/dl: no coverage 121-150 mg/dl: no coverage 151-200 mg/dl: no coverage 201-250 mg/dl: no coverage 251-300 mg/dl: 2 units 301-350 mg/dl: 3 units 351-400 mg/dl: 4 units > 400 mg/dl: 5 units Subjective Subjective: Her breathing is better this morning. Objective Last 24 Hrs of Vital Signs/I&O Vital Signs Date Time Temp Pulse Resp B/P Pulse O2 O2 Flow FiO2 Ox Delivery Rate 03/08 0909 92 Nasal 5.0L Cannula 03/08 08 93 Nasal 5.0L Cannula 03/08 08 97.4 74 20 120/80 93 Nasal 5.0L Cannula 03/08 0400 93 Nasal 5.0L Cannula 03/08 0000 97.4 76 25 108/60 95 Nasal 5.0L Cannula 03/08 0000 95 Nasal 5.0L Cannula 03/07 1999 93 Nasal 5.0L Cannula 03/07 1719 94 Nasal 5.0L Cannula 03/07 1600 Nasal 5.0L Cannula 03/07 1600 96.8 86 18 140/70 93 Nasal 5.0L Cannula 03/07 1200 Nasal 6.0L Cannula Intake & Output 03/08 1600 03/08 0800 03/08 0000 Intake Total 765 1454 Output Total 500 1400 Balance 265 54 Intake, IV 665 854 Intake, Oral 100 600 Number 0 0 Bowel Movements Output, Urine 500 1400 Findings Pertinent Lab/Chase Results: Laboratory Tests 03/08 03/07 03/07 0425 1750 1245 Chemistry Sodium (137 - 145 mmol/L) 137 130 L Potassium (3.5 - 5.1 mmol/L) 4.3 4.7 Chloride (98 - 107 mmol/L) 102 96 L Carbon Dioxide (22 - 30 mmol/L) 24 22 Anion Gap (5 - 16) 11 13 BUN (7 - 17 mg/dL) 24 H 28 H Creatinine (0.5 - 1.0 mg/dL) 0.9 1.2 H Estimated GFR (>60 ml/min) > 60 47 L BUN/Creatinine Ratio (7 - 25 %) 23.3 Glucose (65 - 99 mg/dL) 170 H 440 H Hemoglobin A1c (<5.7) 11.9 H Calcium (8.4 - 10.2 mg/dL) 8.4 8.0 L Phosphorus (2.5 - 4.5 mg/dL) 3.1 3.1 Magnesium (1.6 - 2.3 mg/dL) 2.4 H 2.3 Total Bilirubin (0.2 - 1.3 mg/dL) 0.4 0.5 AST (14 - 36 U/L) 10 L 13 L ALT (9 - 52 U/L) 27 29 Albumin (3.5 - 5.0 g/dL) 2.8 L 2.8 L Hematology CBC w Diff NO MAN DIFF REQ WBC (4.8 - 10.8 /CUMM) 14.7 H RBC (4.20 - 5.40 /CUMM) 3.51 L Hgb (12.0 - 16.0 G/DL) 11.5 L Hct (37 - 47 %) 34.2 L MCV (81.0 - 99.0 FL) 97.4 MCH (27.0 - 31.0 PG) 32.8 H RDW (11.5 - 14.5 %) 13.4 Plt Count (130 - 400 /CUMM) 219 MPV (7.4 - 10.4 FL) 10.0 Gran % (42.2 - 75.2 %) 88.0 H Lymphocytes % (20.5 - 51.1 %) 5.9 L Monocytes % (1.7 - 9.3 %) 6.1 Eosinophils % (0 - 5 %) 0 Basophils % (0.0 - 2.0 %) 0 L Absolute Granulocytes (1.4 - 6.5 /CUMM) 12.9 H Absolute Lymphocytes (1.2 - 3.4 /CUMM) 0.9 L Absolute Monocytes (0.10 - 0.60 /CUMM) 0.9 H Absolute Eosinophils (0.0 - 0.7 /CUMM) 0 Absolute Basophils (0.0 - 0.2 /CUMM) 0 PUBS MCHC (33.0 - 37.0 G/DL) 33.7 Toxicology Random Vancomycin (ug/ml) 13.7
--- NOTE | 2016-03-08 12:09 | NUR ---
PT'S INSULIN GTT WAS STOPPED AT 1145. LEVEMIR 36UNITS ADMINISTERED AT 1020. PT IS NOW ON A TIDAC/HS RISS. 1130 FSG WAS 307-COVERED WITH NOVOLIN 20UNITS PER RISS.
--- NOTE | 2016-03-08 14:51 | ULTRASOUND REPORT ---
EXAMINATION: US PLEURAL EFFUSION CLINICAL INFORMATION: Persistent pleuritic pain in left chest region. COMPARISON: Chest CT of 03/06/2016. TECHNIQUE: Sonographic imaging of the left posterior chest was performed. This was a portable exam performed by the medical technologist microbiology in the ICU. FINDINGS: Small amount of pleural fluid (measuring less than 3 cm wide) is seen within the posterior left pleural space. The amount of pleural fluid appears increased compared to 03/06/2016; however, it appears to be too small for performance of thoracentesis. IMPRESSION: Small left pleural effusion appears increased in size compared to the chest CT the 03/06/2016.
[2016-03-08 16:00] VITALS: BP 110/60
--- NOTE | 2016-03-08 16:11 | NUR ---
THE PT'S PAYNE WAS REMOVED AT 1220. AT 1500 THE PT VOIDED 400ML OF LT JEREMIE URINE VIA A HAT IN THE TOILET.
[2016-03-08 17:25] VITALS: BP 152/84
[2016-03-09 00:46] VITALS: BP 118/60
[2016-03-09 08:12] LABS: ABSOLUTE BASOPHIL COUNT 0 /CUMM (0.0-0.2); ABSOLUTE EOSINOPHIL COUNT 0 /CUMM (0.0-0.7); ABSOLUTE GRANULOCYTE CT 10.9 /CUMM (1.4-6.5); ABSOLUTE LYMPH COUNT 1.5 /CUMM (1.2-3.4); ABSOLUTE MONOCYTE COUNT 1.1 /CUMM (0.10-0.60); BASOPHIL % 0.1 % (0.0-2.0); EOSINOPHIL % 0.3 % (0-5); GRANULOCYTE % 80.3 % (42.2-75.2); MEAN CORPUSCULAR HGB 33.4 PG (27.0-31.0); MEAN CORPUSCULAR HGB CONC 33.7 G/DL (33.0-37.0); MEAN CORPUSCULAR VOLUME 99.1 FL (81.0-99.0); MEAN PLATELET VOLUME 9.9 FL (7.4-10.4); PLATELET COUNT 249 /CUMM (130-400); RBC DISTRIBUTION WIDTH 13.7 % (11.5-14.5); RED BLOOD CELL CT 3.54 /CUMM (4.20-5.40); WHITE BLOOD CELL COUNT 13.5 /CUMM (4.8-10.8)
--- NOTE | 2016-03-09 08:12 | Transfer of Care Summary ---
Hospital Course Course Hospital Course: Patient is a 50 YO F with PMH significant for A.Fib (on xarelto), COPD, T2DM, HTN came to the ER with chest pain radiating to the left arm and shortness of breath. She failed antimicrobial therapy with levofloxacin & steroid therapy as an outpatient. On examination she is also found to have a wound on her left foot along with high sugar (probably secondary to recent steroid intake). Her D-Dimer is around 2000. Doppler is negative for DVT, CTA negative for PE but shows RLL and DEBBI pneumonia. Blood sugars at admission is 548. Initially she was admitted to telemtry and subsequently found to be profoundly hypotensive after 4L of fluids and transfered to unit for pressors/central line placement while on xarelto. she was placed on a femoral central line eventually and started on levophed. Later she was found to have normal BP with a manual cuff and she was gradually tapered off the drip. As her Creatinine is 1.3 at admission, followed by increase to 1.8 after CTA - she was hydrated with NS @ 125ml/hr. As she sounded overloaded, we did an CXR in am which showed increased mid to basilar left lung opacity along with a new left pleural effusion. She is positive for gram positive cocci in clusters in both her blood cultures. Her blood sugars are in 400's throughout the day although insulin sliding scale is increased. Probably because of steroid intake. The following issues are addressed in ICU: Suspected sepsis secondary to Multilobar pneumonia/Osteomyelitis She is found to have BP of 80/50mmHg, RR >24, white count of 20.5 (could be secondary to steroids) with a CT angio shows DEBBI, RLL pneumonia. Nectrotic ulcers present on distal second third left foot. Foot Xray shows osteolysis of left foot 2nd toe - podiatry consulted. MRI of left foot pending - may need digital amputation. She was titrated slowly off the levophed drip, BP remained stable over the day. Started on ceftriaxone and Azithromycin for multilobar pneumonia, eventually discontinued ceftriaxone and gave a single dose of vancomycin 1.5gm (as Blood Culx postive for gram +ve cocci). Repeat blood cultures are ordered. Please follow. Type 2 Diabetes Mellitus His blood sugars at admission is in 500's. Initially She was placed on high dose novolog sliding scale. However her blood sugars are in 400's to 500's throughout the day, although her sliding scale is changed. Eventually she was placed on insulin drip @4units/hr. Her HbA1C level is 11.7. Endocrine consulted - is on board. JOSE L creatinine at admission is 1.3(baseline 1.8). After CT angio it is incresed to 1.8 as a result of contrast induced nephropathy. she was placed on fluids and her creatinine came down to 0.9. Resolved. A.Fib * Stable and On xarelto History of COPD * TRC/Nebs DVT Prophylaxis * On xarelto Code status * Full code Complications: hypotension Significant Procedures: CT angio: IMPRESSION: 1. No evidence of pulmonary embolism. 2. Acute left upper lobe lingular pneumonia and/or early pneumonia right lower lobe. 3. Trace left pleural effusion and reactive lymphadenopathy in the left hilum. VTE: Negative. Foot X ray: IMPRESSION: Soft tissue swelling at the toes with osteolysis at the distal margin of the distal phalanx of the second toe, most compatible with osteomyelitis. Potential osteomyelitis at the distal phalanx of the third toe is more indeterminant. Consider correlation MRI of the foot with and without contrast for more sensitivity and specificity. Chest ultrasound: IMPRESSION: Small left pleural effusion appears increased in size compared to the chest CT the 03/06/2016. Assessment/Plan: as above. Attending MD Review Statement Documenting Attending: Clover MARR MD
--- NOTE | 2016-03-09 08:41 | PN- Housestaff ---
PETRA RESTREPO,[facility] 03/09/16 0841: Subjective Follow-up For: MRSA osteomyelitis Multilobar pneumonia Subjective: Patient seen and examined this morning. She was lying in her bed in mild distress. Remains on 3 L of nasal cannula oxygen satting in the mid 90s . Vitals within normal limits. She still endorses productive cough but better than yesterday. No other complaints. Review of Systems Constitutional: Reports: see HPI. Objective Last 24 Hrs of Vital Signs/I&O Vital Signs Date Time Temp Pulse Resp B/P Pulse O2 O2 Flow FiO2 Ox Delivery Rate 03/09 1557 98.0 80 20 130/70 90 Room Air 03/09 0859 98.1 80 20 130/64 93 Nasal 3.0L Cannula 03/09 0800 93 Nasal 3.0L Cannula 03/09 0740 88 Nasal 5.0L Cannula 03/09 0046 98.4 74 20 118/60 98 Nasal 5.0L Cannula 03/09 0000 Nasal 5.0L Cannula 03/08 1725 98.4 78 18 152/84 94 Nasal 4.0L Cannula 03/08 1717 94 Nasal 5.0L Cannula Intake & Output 03/09 1600 03/09 0800 03/09 0000 Intake Total 1200 780 480 Output Total 400 Balance 1200 780 80 Intake, IV 500 300 Intake, Oral 700 480 480 Number 0 Bowel Movements Output, Urine 400 Physical Exam General Appearance: Alert, Oriented X3, Cooperative, Mild Distress Cardiovascular: Regular Rate, Normal S1, Normal S2, No Murmurs Lungs: Clear to Auscultation, Normal Air Movement Abdomen: Normal Bowel Sounds, Soft, No Tenderness Extremities: No Clubbing, No Cyanosis, No Edema, necrotic ulcer on distal second and third left toe Current Medications: Current Medications Sig/Teresita Start time Last Medication Dose Route Stop Time Status Admin Acetaminophen 650 MG Q6P PRN 03/06 1615 AC 03/06 PO 2329 Albuterol Sulfate 3 ML EVERY 4 HRS/AWAKE 03/07 0900 AC 03/09 INH 1205 Budesonide/ 2 PUF BID 03/07 1000 AC 03/09 Formoterol Fumarate INH 0926 Cyclobenzaprine HCl 5 MG TID 03/09 1106 AC 03/09 PO 03/10 2201 1128 Cyclobenzaprine HCl 5 MG ONCE PRN 03/06 1530 DC 03/08 PO 2339 Diltiazem HCl 120 MG DAILY 03/06 1603 AC 03/09 PO 0925 Duloxetine HCl 60 MG DAILY 03/06 1603 AC 03/09 PO 0925 Gabapentin 600 MG Q8 03/07 0000 AC 03/09 PO 1322 Hyoscyamine 0.125 MG Q4 HRS NEEDED PRN 03/07 1000 AC 03/09 PO 0433 Insulin Aspart 0 TIDAC/HS 03/08 1200 AC 03/09 SC 1201 Insulin Detemir 28 UNITS BID 03/09 1000 AC 03/09 SC 0925 Insulin Detemir 25 UNITS BID 03/08 2200 DC 03/09 SC 0848 Melatonin 5 MG ONCE ONE 03/08 2230 DC 03/08 PO 03/08 2231 2339 Omeprazole 40 MG DAILY AC 03/06 1604 AC 03/09 PO 0434 Oxycodone HCl 5 MG Q8P PRN 03/06 1600 AC 03/09 PO 1201 Prednisone 30 MG DAILY 03/09 1000 AC 03/09 PO 0925 Quetiapine Fumarate 25 MG QPM 03/06 2200 AC 03/08 PO 2123 Rivaroxaban 20 MG DAILY 03/06 1552 AC 03/09 PO 0925 Tiotropium [place] 1 PUF DAILY 03/07 1000 AC 03/09 INH 0925 Trazodone HCl 100 MG QPM 03/06 2200 AC 03/08 PO 2123 Vancomycin HCl 2,000 MG Q12H 03/08 1200 AC 03/09 Sodium Chloride 500 ML IV 1201 Last 24 Hrs of Lab/Chase Results Last 24 Hrs of Labs/Mics: Laboratory Tests 03/09/16 0705: Anion Gap 13, Estimated GFR > 60, Glucose 280 H, Calcium 8.6, Phosphorus 3.0, Magnesium 2.4 H, Total Bilirubin 0.7, AST 20, ALT 38, Albumin 3.0 L, CBC w Diff NO MAN DIFF REQ, RBC 3.54 L, MCV 99.1 H, MCH 33.4 H, RDW 13.7, MPV 9.9, Gran % 80.3 H, Lymphocytes % 11.1 L, Monocytes % 8.2, Eosinophils % 0.3, Basophils % 0.1, Absolute Granulocytes 10.9 H, Absolute Lymphocytes 1.5, Absolute Monocytes 1.1 H, Absolute Eosinophils 0, Absolute Basophils 0, PUBS MCHC 33.7, Random Vancomycin 21.5 Assessment/Plan Assessment: Patient is a 50 YO F with PMH significant for A.Fib (on xarelto), COPD, T2DM, HTN came to the ER with chest pain radiating to the left arm and shortness of breath. She failed antimicrobial therapy with levofloxacin & steroid therapy as an outpatient. On examination she is also found to have a wound on her left foot along with high sugar (probably secondary to recent steroid intake). D-1999. Doppler negative for DVT, CTA negative for PE but shows RLL and DEBBI pneumonia. Blood sugars at admission is 548. Initially she was admitted to telemtry and subsequently found to be profoundly hypotensive after 4L of fluids and transfered to unit for pressors/central line placement while on xarelto.she was placed on a femoral central line eventually and started on levophed. Later she was found to have normal BP with a manual cuff and she was gradually tapered off the drip. She has been transferred to [facility] floor, we are currently managing her for following conditions: MRSA osteomyelitis and multilobar pneumonia * CT angio demonstrated left lower lobe and right upper lobe pneumonia. * Nectrotic ulcers present on distal second third left foot. Foot Xray shows osteolysis of left foot 2nd toe - podiatry consulted. * MRI of left foot not done as she had an IVC filter whose compatibility with MRI is unknown. Requested medical records from [facility] for post op report regarding her IVC filter placement. * Blood cultures X 2 positive for MRSA. * Started on vancomycin 2gm Q12 after discontinuation of ceftriaxone and azithromycin. * next vancomycin trough level tomorrow. * Placed on quick prednisone taper - 30mg X2, 20X2, 10X1. * US chest revealed Small left pleural effusio which as per pulmonolgy is not amenable for thoracentesis. Type 2 Diabetes Mellitus * blood sugars are in 300's through out the night, On insulin drip. * Morning she was off the drip and her steroids are tapered very fast as of her sugars * Placed on levemir 25untis BID and novolg sliding scale * HbA1C level - 11.9 * Endocrine consulted - is on board. * will readjust scale depending on her sugar levels today. JOSE L * Resolved. * creatinine at admission is 1.3(baseline 1.8) * After CT angio it is incresed to 1.8 as a result of contrast induced nephropathy. * she was placed on fluids and her creatinine came down to 0.9. A.Fib * On xarelto History of COPD * TRC/Nebs Problem List: 1. JOSE L (acute kidney injury) 2. Pneumonia 3. Osteomyelitis Pain Ratin Pain Location: left foot Pain Goal: Remain pain free Pain Plan: Neurontin 600 mg every 8 flexeril milligram 3 times a day Tomorrow's Labs & Rationales: CBC for before meals monitoring in setting of infection bep for lytes monitoring Vancomycin trough VIKTORIYA LANZA MD 03/09/16 1218: Attending MD Review Statement Attending Statement Attending MD Statement: examined this patient, discuss w/resident/PA/[employer]PERVISOR, agreed w/resident/PA/[employer] SUPERVISOR, reviewed EMR data (avail), discussed with nursing, discussed with case mgmt, amended to note Attending Assessment/Plan: Patient seen and examined. Transferred to the general medical floor overnight. She reports feeling better but still complains of a productive cough and shortness of breath with mild exertion. She complains of left-sided chest pain pleuritic in nature. She is afebrile and hemodynamically stable. On examination she has fair entry bilaterally with mild rhonchi. Abdomen is soft and nontender. She has no peripheral edema. She has evidence of cellulitis of the left second and third toes. Recommendations: -Follow-up with the radiology service for abdominal imaging to confirm the absence of the IVC filter which the patient states was removed. -If this confirms that she has no IVC filter, an MRI of the foot will be obtained. -Continue bronchodilator regimen. Continue prednisone. -Mobilize patient as tolerated. -Blood glucose level is consistently in the 300s, likely aggravated by her systemic steroid therapy. -Check hemoglobin A1c and follow-up with the endocrinology service.
[2016-03-09 08:59] VITALS: BP 130/64
--- NOTE | 2016-03-09 09:00 | PN- Diabetes ---
Assessment/Plan Assessment: 50-year-old active smoker lady with past medical history significant for COPD, diabetes type 2 on metformin, hypertension, atrial fibrillation, was in ICU for COPD/pneumonia and hypotension. She was put on prednisone 40 mg twice a day and antibiotics. She was on Levophed drip which was off in the morning on 03/07/2016. Her glucose levels were > 400 and she was on an insulin drip initially. Prednisone was decreased to 30 mg daily on 03/08/2016. She was put on Levemir 25 units twice a day, Novolog coverage before meals and Novolog coverage at bedtime. Her FSGs were 327, 307, 336, 372 and 230. Plan: 1. increase Levemir to 28 units twice a day; 2. adjust Novolog coverage before meals---detail see the inpatient DM order; 3. monitor FSGs. will follow. Inpatient Diabetes Orders Before Each Meal: Bolus Insulin: Novolog < 80 mg/dl: no coverage 80-100 mg/dl: 10 units 101-120 mg/dl: 10 units 121-150 mg/dl: 10 units 151-200 mg/dl: 13 units 201-250 mg/dl: 16 units 251-300 mg/dl: 19 units 301-350 mg/dl: 21 units 351-400 mg/dl: 23 units > 400 mg/dl: 25 units Subjective Subjective: She still has some difficulty in breathing. Objective Last 24 Hrs of Vital Signs/I&O Vital Signs Date Time Temp Pulse Resp B/P Pulse O2 O2 Flow FiO2 Ox Delivery Rate 03/09 0740 88 Nasal 5.0L Cannula 03/09 0046 98.4 74 20 118/60 98 Nasal 5.0L Cannula 03/09 0000 Nasal 5.0L Cannula 03/08 1725 98.4 78 18 152/84 94 Nasal 4.0L Cannula 03/08 1717 94 Nasal 5.0L Cannula 03/08 1600 93 Nasal 5.0L Cannula 03/08 1600 98.8 96 20 110/60 93 Nasal 5.0L Cannula 03/08 0909 92 Nasal 5.0L Cannula Intake & Output 03/09 1600 03/09 0800 03/09 0000 Intake Total 780 480 Output Total 400 Balance 780 80 Intake, IV 300 Intake, Oral 480 480 Output, Urine 400 Findings Pertinent Lab/Chase Results: Laboratory Tests 03/09 704 Chemistry Sodium (137 - 145 mmol/L) 136 L Potassium (3.5 - 5.1 mmol/L) 4.5 Chloride (98 - 107 mmol/L) 97 L Carbon Dioxide (22 - 30 mmol/L) 26 Anion Gap (5 - 16) 13 BUN (7 - 17 mg/dL) 26 H Creatinine (0.5 - 1.0 mg/dL) 0.8 Estimated GFR (>60 ml/min) > 60 Glucose (65 - 99 mg/dL) 280 H Calcium (8.4 - 10.2 mg/dL) 8.6 Phosphorus (2.5 - 4.5 mg/dL) 3.0 Magnesium (1.6 - 2.3 mg/dL) 2.4 H Total Bilirubin (0.2 - 1.3 mg/dL) 0.7 AST (14 - 36 U/L) 20 ALT (9 - 52 U/L) 38 Albumin (3.5 - 5.0 g/dL) 3.0 L Hematology CBC w Diff NO MAN DIFF REQ WBC (4.8 - 10.8 /CUMM) 13.5 H RBC (4.20 - 5.40 /CUMM) 3.54 L Hgb (12.0 - 16.0 G/DL) 11.8 L Hct (37 - 47 %) 35.0 L MCV (81.0 - 99.0 FL) 99.1 H MCH (27.0 - 31.0 PG) 33.4 H RDW (11.5 - 14.5 %) 13.7 Plt Count (130 - 400 /CUMM) 249 MPV (7.4 - 10.4 FL) 9.9 Gran % (42.2 - 75.2 %) 80.3 H Lymphocytes % (20.5 - 51.1 %) 11.1 L Monocytes % (1.7 - 9.3 %) 8.2 Eosinophils % (0 - 5 %) 0.3 Basophils % (0.0 - 2.0 %) 0.1 Absolute Granulocytes (1.4 - 6.5 /CUMM) 10.9 H Absolute Lymphocytes (1.2 - 3.4 /CUMM) 1.5 Absolute Monocytes (0.10 - 0.60 /CUMM) 1.1 H Absolute Eosinophils (0.0 - 0.7 /CUMM) 0 Absolute Basophils (0.0 - 0.2 /CUMM) 0 PUBS MCHC (33.0 - 37.0 G/DL) 33.7 Toxicology Random Vancomycin (ug/ml) 21.5
--- NOTE | 2016-03-09 10:41 | PN- Pulmonary ---
Subjective HPI/Critical Care Issues: pt seen and examined transferred out of icu feeling better usg of chest revealed a very small effusion not amenable to thoracentesis no n/v/d/c no cp pain has subsided but remains Objective Current Medications: Current Medications Sig/Teresita Start time Last Medication Dose Route Stop Time Status Admin Acetaminophen 650 MG Q6P PRN 03/06 1615 AC 03/06 PO 2329 Albuterol Sulfate 3 ML EVERY 4 HRS/AWAKE 03/07 0900 AC 03/09 INH 0737 Azithromycin 500 MG 1830 03/07 1830 DC 03/07 Sodium Chloride 250 ML IV 1745 Budesonide/ 2 PUF BID 03/07 1000 AC 03/09 Formoterol Fumarate INH 0926 Cyclobenzaprine HCl 5 MG ONCE PRN 03/06 1530 AC 03/08 PO 2339 Diltiazem HCl 120 MG DAILY 03/06 1603 AC 03/09 PO 0925 Duloxetine HCl 60 MG DAILY 03/06 1603 AC 03/09 PO 0925 Gabapentin 600 MG Q8 03/07 0000 AC 03/09 PO 0434 Hyoscyamine 0.125 MG Q4 HRS NEEDED PRN 03/07 1000 AC 03/09 PO 0433 Insulin Aspart 0 TIDAC/HS 03/08 1200 AC 03/09 SC 0848 Insulin Detemir 28 UNITS BID 03/09 1000 AC 03/09 SC 0925 Insulin Detemir 25 UNITS BID 03/08 2200 DC 03/09 SC 0848 Insulin Detemir 36 UNITS BID 03/08 1000 DC 03/08 SC 1011 Melatonin 5 MG ONCE ONE 03/08 2230 DC 03/08 PO 03/08 2231 2339 Omeprazole 40 MG DAILY AC 03/06 1604 AC 03/09 PO 0434 Oxycodone HCl 5 MG Q8P PRN 03/06 1600 AC 03/09 PO 0434 Prednisone 30 MG DAILY 03/09 1000 AC 03/09 PO 0925 Quetiapine Fumarate 25 MG QPM 03/06 2200 AC 03/08 PO 2123 Rivaroxaban 20 MG DAILY 03/06 1552 AC 03/09 PO 0925 Tiotropium [place] 1 PUF DAILY 03/07 1000 AC 03/09 INH 0925 Trazodone HCl 100 MG QPM 03/06 2200 AC 03/08 PO 2123 Vancomycin HCl 2,000 MG Q12H 03/08 1200 AC 03/08 Sodium Chloride 500 ML IV 2339 Vancomycin HCl 2,000 MG Q12 03/08 1126 CAN Sodium Chloride 250 ML IV Vital Signs & I&O Last 24 Hrs of Vitals and I&O: Vital Signs Date Time Temp Pulse Resp B/P Pulse O2 O2 Flow FiO2 Ox Delivery Rate 03/09 0859 98.1 80 20 130/64 93 Nasal 3.0L Cannula 03/09 0800 93 Nasal 3.0L Cannula 03/09 0740 88 Nasal 5.0L Cannula 03/09 0046 98.4 74 20 118/60 98 Nasal 5.0L Cannula 03/09 0000 Nasal 5.0L Cannula 03/08 1725 98.4 78 18 152/84 94 Nasal 4.0L Cannula 03/08 1717 94 Nasal 5.0L Cannula 03/08 1600 93 Nasal 5.0L Cannula 03/08 1600 98.8 96 20 110/60 93 Nasal 5.0L Cannula Intake & Output 03/09 1600 03/09 0800 03/09 0000 Intake Total 780 480 Output Total 400 Balance 780 80 Intake, IV 300 Intake, Oral 480 480 Output, Urine 400 Exam Other Physical Findings: General - Alert, awake and oriented HEENT - normocephalic, atraumatic Cardiovascular - S1, S2 Lungs - rhonchi bilaterally Abdomen - soft, bowel sounds positive, no tenderness Extremities - without edema, toe lesions noted Results Last 24 Hrs of Lab Results: Laboratory Tests 03/09/16 0705: Anion Gap 13, Estimated GFR > 60, Glucose 280 H, Calcium 8.6, Phosphorus 3.0, Magnesium 2.4 H, Total Bilirubin 0.7, AST 20, ALT 38, Albumin 3.0 L, CBC w Diff NO MAN DIFF REQ, RBC 3.54 L, MCV 99.1 H, MCH 33.4 H, RDW 13.7, MPV 9.9, Gran % 80.3 H, Lymphocytes % 11.1 L, Monocytes % 8.2, Eosinophils % 0.3, Basophils % 0.1, Absolute Granulocytes 10.9 H, Absolute Lymphocytes 1.5, Absolute Monocytes 1.1 H, Absolute Eosinophils 0, Absolute Basophils 0, PUBS MCHC 33.7, Random Vancomycin 21.5 Impression/Plan Impression/Plan Impression/Plan: Impression 50 year old woman MRSA bacteremia, pneumonia vs skin lesions as source. Plan - usg of chest with a small effusion, not amenable to thoracentesis - ID consultaiton - ?MRI compatibility - f/u ECHO - cont symbicort, spiriva - prednisone taper - dvt prophylaxis at all times
--- NOTE | 2016-03-09 14:29 | PN- Infect Dx ---
Subjective Subjective: Afebrile on steroids. She feels improved though still reports left chest spasms. Objective Last 24 Hrs of Vital Signs/I&O Vital Signs Date Time Temp Pulse Resp B/P Pulse O2 O2 Flow FiO2 Ox Delivery Rate 03/09 0859 98.1 80 20 130/64 93 Nasal 3.0L Cannula 03/09 0800 93 Nasal 3.0L Cannula 03/09 0740 88 Nasal 5.0L Cannula 03/09 0046 98.4 74 20 118/60 98 Nasal 5.0L Cannula 03/09 0000 Nasal 5.0L Cannula 03/08 1725 98.4 78 18 152/84 94 Nasal 4.0L Cannula 03/08 1717 94 Nasal 5.0L Cannula 03/08 1600 93 Nasal 5.0L Cannula 03/08 1600 98.8 96 20 110/60 93 Nasal 5.0L Cannula Intake & Output 03/09 1600 03/09 0800 03/09 0000 Intake Total 1200 780 480 Output Total 400 Balance 1200 780 80 Intake, IV 500 300 Intake, Oral 700 480 480 Number 0 Bowel Movements Output, Urine 400 Physical Exam Other Physical Findings: She appears more comfortable in no acute distress Chest no tenderness on palpation over the left chest wall Lungs clear Heart regular rhythm with no murmur Extremities no cyanosis, clubbing or edema; necrotic tips of the left second and third toes unchanged Results Last 24 Hours of Lab Results: Laboratory Tests 03/09 704 Chemistry Sodium (137 - 145 mmol/L) 136 L Potassium (3.5 - 5.1 mmol/L) 4.5 Chloride (98 - 107 mmol/L) 97 L Carbon Dioxide (22 - 30 mmol/L) 26 Anion Gap (5 - 16) 13 BUN (7 - 17 mg/dL) 26 H Creatinine (0.5 - 1.0 mg/dL) 0.8 Estimated GFR (>60 ml/min) > 60 Glucose (65 - 99 mg/dL) 280 H Calcium (8.4 - 10.2 mg/dL) 8.6 Phosphorus (2.5 - 4.5 mg/dL) 3.0 Magnesium (1.6 - 2.3 mg/dL) 2.4 H Total Bilirubin (0.2 - 1.3 mg/dL) 0.7 AST (14 - 36 U/L) 20 ALT (9 - 52 U/L) 38 Albumin (3.5 - 5.0 g/dL) 3.0 L Hematology CBC w Diff NO MAN DIFF REQ WBC (4.8 - 10.8 /CUMM) 13.5 H RBC (4.20 - 5.40 /CUMM) 3.54 L Hgb (12.0 - 16.0 G/DL) 11.8 L Hct (37 - 47 %) 35.0 L MCV (81.0 - 99.0 FL) 99.1 H MCH (27.0 - 31.0 PG) 33.4 H RDW (11.5 - 14.5 %) 13.7 Plt Count (130 - 400 /CUMM) 249 MPV (7.4 - 10.4 FL) 9.9 Gran % (42.2 - 75.2 %) 80.3 H Lymphocytes % (20.5 - 51.1 %) 11.1 L Monocytes % (1.7 - 9.3 %) 8.2 Eosinophils % (0 - 5 %) 0.3 Basophils % (0.0 - 2.0 %) 0.1 Absolute Granulocytes (1.4 - 6.5 /CUMM) 10.9 H Absolute Lymphocytes (1.2 - 3.4 /CUMM) 1.5 Absolute Monocytes (0.10 - 0.60 /CUMM) 1.1 H Absolute Eosinophils (0.0 - 0.7 /CUMM) 0 Absolute Basophils (0.0 - 0.2 /CUMM) 0 PUBS MCHC (33.0 - 37.0 G/DL) 33.7 Toxicology Random Vancomycin (ug/ml) 21.5 Last 24 Hours of Chase Results: Blood cultures March 06 positive for MRSA, with an CHASE to Vancomycin of 2 Blood cultures March 07 negative Urine culture March 07 negative Recent Imaging Studies: Ultrasound of the chest March 08 reveals a small left pleural effusion Assessment/Plan Impression: Continues to improve with temperatures remaining normal (on steroids) and white blood cell count continuing to decrease on Vancomycin, Day 2 of treatment for MRSA sepsis, most likely secondary to pneumonia, with the left lung density noted on CT and chest x-ray and with hypoxia, which is improving. Her left pleuritic pain is presumably secondary to the pneumonia, with recent ultrasound revealing only a small left pleural effusion, not felt amenable to thoracentesis. Doubt that her left second and third toes are the source of sepsis, but the x-ray does suggest the possibility of underlying osteomyelitis, and MRI is pending. Suggestion: 1. Echocardiogram 2. Await MRI of the left foot 3. Vancomycin trough level with the a.m. dose on March 10 4. Can proceed with placement of a PICC 5. Continue Vancomycin
[2016-03-09 15:57] VITALS: BP 130/70
[2016-03-10 00:41] VITALS: BP 138/60
[2016-03-10 07:53] LABS: ABSOLUTE BASOPHIL COUNT 0 /CUMM (0.0-0.2); ABSOLUTE EOSINOPHIL COUNT 0 /CUMM (0.0-0.7); ABSOLUTE GRANULOCYTE CT 8.7 /CUMM (1.4-6.5); ABSOLUTE LYMPH COUNT 1.3 /CUMM (1.2-3.4); BASOPHIL % 0.2 % (0.0-2.0); EOSINOPHIL % 0.4 % (0-5); GRANULOCYTE % 78.7 % (42.2-75.2); HEMATOCRIT 32.5 % (37-47); MEAN CORPUSCULAR HGB 33.5 PG (27.0-31.0); MEAN CORPUSCULAR HGB CONC 33.9 G/DL (33.0-37.0); MEAN CORPUSCULAR VOLUME 98.7 FL (81.0-99.0); MEAN PLATELET VOLUME 9.9 FL (7.4-10.4); PLATELET COUNT 223 /CUMM (130-400); RBC DISTRIBUTION WIDTH 13.7 % (11.5-14.5); RED BLOOD CELL CT 3.29 /CUMM (4.20-5.40); WHITE BLOOD CELL COUNT 11.1 /CUMM (4.8-10.8)
[2016-03-10 08:13] VITALS: BP 134/81
--- NOTE | 2016-03-10 08:42 | PN- Diabetes ---
Assessment/Plan Assessment: 50-year-old active smoker lady with past medical history significant for COPD, diabetes type 2 on metformin, hypertension, atrial fibrillation, was in ICU for COPD/pneumonia and hypotension. She was put on prednisone 40 mg twice a day and antibiotics. She was on Levophed drip which was off in the morning on 03/07/2016. Her glucose levels were > 400 and she was on an insulin drip initially. Prednisone was decreased to 30 mg daily on 03/08/2016. She was put on Levemir 28 units twice a day, Novolog coverage before meals and Novolog coverage at bedtime. Her FSGs were 230, 320, 255, 308 and 311. Plan: 1. increase Levemir to 32 units twice a day; 2. adjust Novolog coverage before meals---detail see the inpatient DM order; 3. continue the current Novolog coverage at bedtime; 4. monitr FSGs. will follow. Inpatient Diabetes Orders Before Each Meal: Bolus Insulin: Novolog < 80 mg/dl: no coverage 80-100 mg/dl: 12 units 101-120 mg/dl: 12 units 121-150 mg/dl: 12 units 151-200 mg/dl: 15 units 201-250 mg/dl: 18 units 251-300 mg/dl: 21 units 301-350 mg/dl: 23 units 351-400 mg/dl: 25 units > 400 mg/dl: 27 units Subjective Subjective: Her glucose levels have been in the 200s and 300s. Objective Last 24 Hrs of Vital Signs/I&O Vital Signs Date Time Temp Pulse Resp B/P Pulse O2 O2 Flow FiO2 Ox Delivery Rate 03/10 0813 97.7 70 18 134/81 95 Nasal 3.0L Cannula 03/10 0756 Nasal 3.0L Cannula 03/10 0437 96 Nasal 3.0L Cannula 03/10 0041 97.7 67 20 138/60 94 Nasal 3.0L Cannula 03/10 0000 92 Nasal 3.0L Cannula 03/09 2041 95 Nasal 4.0L Cannula 03/09 1658 92 Nasal 3.0L Cannula 03/09 1600 94 Nasal 3.0L Cannula 03/09 1557 98.0 80 20 130/70 90 Room Air 03/09 0859 98.1 80 20 130/64 93 Nasal 3.0L Cannula Intake & Output 03/10 1600 03/10 0800 03/10 0000 Intake Total 860 360 Output Total Balance 860 360 Intake, IV 500 Intake, Oral 360 360 Findings Pertinent Lab/Chase Results: Laboratory Tests 03/10 06 Chemistry Sodium (137 - 145 mmol/L) 134 L Potassium (3.5 - 5.1 mmol/L) 4.8 Chloride (98 - 107 mmol/L) 99 Carbon Dioxide (22 - 30 mmol/L) 24 Anion Gap (5 - 16) 11 BUN (7 - 17 mg/dL) 24 H Creatinine (0.5 - 1.0 mg/dL) 0.8 Estimated GFR (>60 ml/min) > 60 BUN/Creatinine Ratio (7 - 25 %) 30.0 H Hematology CBC w Diff NO MAN DIFF REQ WBC (4.8 - 10.8 /CUMM) 11.1 H RBC (4.20 - 5.40 /CUMM) 3.29 L Hgb (12.0 - 16.0 G/DL) 11.0 L Hct (37 - 47 %) 32.5 L MCV (81.0 - 99.0 FL) 98.7 MCH (27.0 - 31.0 PG) 33.5 H RDW (11.5 - 14.5 %) 13.7 Plt Count (130 - 400 /CUMM) 223 MPV (7.4 - 10.4 FL) 9.9 Gran % (42.2 - 75.2 %) 78.7 H Lymphocytes % (20.5 - 51.1 %) 11.6 L Monocytes % (1.7 - 9.3 %) 9.1 Eosinophils % (0 - 5 %) 0.4 Basophils % (0.0 - 2.0 %) 0.2 Absolute Granulocytes (1.4 - 6.5 /CUMM) 8.7 H Absolute Lymphocytes (1.2 - 3.4 /CUMM) 1.3 Absolute Monocytes (0.10 - 0.60 /CUMM) 1.0 H Absolute Eosinophils (0.0 - 0.7 /CUMM) 0 Absolute Basophils (0.0 - 0.2 /CUMM) 0 PUBS MCHC (33.0 - 37.0 G/DL) 33.9
--- NOTE | 2016-03-10 11:40 | RADIOLOGY REPORT ---
EXAMINATION: XR PORTABLE CHEST CLINICAL INFORMATION: PICC line placement. COMPARISON: 03/07/2016 TECHNIQUE: Portable view of the chest was obtained. FINDINGS: There is a right-sided PICC line in place, terminating near the cavoatrial junction. The patient is significantly rotated which limits the evaluation. Low lung volumes. Persistent left mid to lower lung opacity suggestive of examination of pleural effusion with airspace disease. No pneumothorax. The cardiomediastinal silhouette is unchanged. IMPRESSION: Right-sided PICC line terminating near the cavoatrial junction. Persistent left pleural effusion with airspace opacity.
--- NOTE | 2016-03-10 12:37 | PN- Att Addend ---
Attending Addendum Attending Brief Note Patient seen and examined. Sitting in bed and not in acute distress. Complains of shortness of breath with minimal exertion. Complains of mild nonproductive cough. She complains of pleuritic pain left lower chest wall. Denies palpitations. Vital Signs Date Time Temp Pulse Resp B/P Pulse O2 O2 Flow FiO2 Ox Delivery Rate 03/10 0813 97.7 70 18 134/81 95 Nasal 3.0L Cannula 03/10 0800 95 Nasal 3.0L Cannula 03/10 0756 Nasal 3.0L Cannula 03/10 0437 96 Nasal 3.0L Cannula 03/10 0041 97.7 67 20 138/60 94 Nasal 3.0L Cannula 03/10 0000 92 Nasal 3.0L Cannula 03/09 2041 95 Nasal 4.0L Cannula 03/09 1658 92 Nasal 3.0L Cannula 03/09 1600 94 Nasal 3.0L Cannula 03/09 1557 98.0 80 20 130/70 90 Room Air Gen. appearance: Not in acute respiratory distress Heart: S1-S2 regular Lungs: Fair entry bilaterally with no added sounds. Diminished entry left lung base. Abdomen: Obese, soft, nontender with normal bowel sounds Extremities: No peripheral edema. Ulcerations on the tip of the second and third toes left foot. Laboratory Tests 03/10/16 0633: Anion Gap 11, Estimated GFR > 60, BUN/Creatinine Ratio 30.0 H, CBC w Diff NO MAN DIFF REQ, RBC 3.29 L, MCV 98.7, MCH 33.5 H, RDW 13.7, MPV 9.9, Gran % 78.7 H, Lymphocytes % 11.6 L, Monocytes % 9.1, Eosinophils % 0.4, Basophils % 0.2, Absolute Granulocytes 8.7 H, Absolute Lymphocytes 1.3, Absolute Monocytes 1.0 H, Absolute Eosinophils 0, Absolute Basophils 0, PUBS MCHC 33.9 Problems: 1. Sepsis secondary to MRSA bacteremia/multilobar pneumonia/and osteomyelitis of the left foot. 2. Small left-sided pleural effusion. 3. Diabetes 4. Atrial fibrillation on anticoagulation 5. COPD Plan: -A shunt will require prolonged antibiotic course for her bacteremia. Follow-up with the ID service for duration. PICC line was placed today. -We are unable to confirm the MRI compatibility of her IVC filter. This was discussed with Dr. Gannon. Bone scan has been ordered and she will be placed on the schedule for surgical intervention on Sunday. -Continue oxygen supplementation. Continue bronchodilator therapy. Continue prednisone taper as recommended by the pulmonary service. -Endocrinology follow-up appreciated. We'll continue to adjust her insulin levels as her blood glucose improves with titration off steroid therapy. -Physical therapy consultation. Patient will likely benefit from short-term rehabilitation at the time of discharge. Please notify her case checker.
--- NOTE | 2016-03-10 14:13 | NUR ---
CALLED INTO ROOM BY PATIENT; PATIENT COMPLAINING OF "BLOODY NOSE" SMALL AMOUNT OF BLOOD NOTED ON TISSUE; PATIENT CURRENTLY ON XARETLTO; O2 2L NC HUMIDIFIED; DR COY GRAHAM AWARE AND TO ORDER NASAL SPRAY; WILL CONTINUE TO MONITOR PATIENT;
--- NOTE | 2016-03-10 15:05 | PN- Housestaff ---
Subjective Follow-up For: MRSA osteomyelitis Multilobar pneumonia Subjective: Patient seen and examined this morning. She was lying in her bed in mild distress. Remains on 3 L of nasal cannula oxygen satting in the mid 90s . She gets short of breath on slight exertion. Vitals within normal limits. She still has productive cough but better than yesterday. No other complaints. Review of Systems Constitutional: Reports: see HPI. Objective Last 24 Hrs of Vital Signs/I&O Vital Signs Date Time Temp Pulse Resp B/P Pulse O2 O2 Flow FiO2 Ox Delivery Rate 03/10 1919 98.1 84 18 143/93 92 03/10 0813 97.7 70 18 134/81 95 Nasal 3.0L Cannula 03/10 08 95 Nasal 3.0L Cannula 03/10 0756 Nasal 3.0L Cannula 03/10 0437 96 Nasal 3.0L Cannula 03/10 0041 97.7 67 20 138/60 94 Nasal 3.0L Cannula 03/10 0000 92 Nasal 3.0L Cannula 03/09 204 95 Nasal 4.0L Cannula Intake & Output 03/10 1600 03/10 0800 03/10 0000 Intake Total 1100 860 360 Output Total Balance 1100 860 360 Intake, IV 500 500 Intake, Oral 600 360 360 Number 0 1 Bowel Movements Patient 146.964 kg Weight Physical Exam General Appearance: Alert, Oriented X3, Cooperative, No Acute Distress Cardiovascular: Regular Rate, Normal S1, Normal S2, No Murmurs Lungs: corse breath sounds b/l Abdomen: Normal Bowel Sounds, Soft, No Tenderness Extremities: No Clubbing, No Cyanosis, No Edema Current Medications: Current Medications Sig/Teresita Start time Last Medication Dose Route Stop Time Status Admin Acetaminophen 650 MG .STK-MED ONE 03/10 0532 DC PO 03/10 0533 Acetaminophen 650 MG Q6P PRN 03/06 1615 AC 03/10 PO 0544 Albuterol Sulfate 3 ML EVERY 4 HRS/AWAKE 03/07 0900 AC 03/10 INH 1112 Budesonide/ 2 PUF BID 03/07 1000 AC 03/10 Formoterol Fumarate INH 0918 Cyclobenzaprine HCl 5 MG TID 03/09 1106 AC 03/10 PO 03/10 2201 1724 Diltiazem HCl 120 MG DAILY 03/06 1603 AC 03/10 PO 0918 Duloxetine HCl 60 MG DAILY 03/06 1603 AC 03/10 PO 0918 Gabapentin 600 MG Q8 03/07 0000 AC 03/10 PO 1327 Guaifenesin 600 MG Q12 03/10 1000 AC 03/10 PO 1145 Hyoscyamine 0.125 MG Q4 HRS NEEDED PRN 03/07 1000 AC 03/09 PO 0433 Insulin Aspart 23 UNITS .STK-MED ONE 03/10 0913 DC AK 03/10 0914 Insulin Aspart 3 UNITS .STK-MED ONE 03/09 2048 DC AK 03/09 204 Insulin Aspart 0 TIDAC/HS 03/08 1200 AC 03/10 SC 1329 Insulin Detemir 32 UNITS BID 03/10 1000 AC 03/10 SC 0918 Insulin Detemir 28 UNITS BID 03/09 1000 DC 03/09 SC 205 Omeprazole 40 MG DAILY AC 03/06 1604 AC 03/10 PO 0544 Oxycodone HCl 5 MG Q6P PRN 03/09 1800 AC 03/10 PO 1726 Oxymetazoline HCl 2 SPRAY BID 03/10 1415 AC DHARA 03/13 1000 Patient Medication 1 ED .STK-MED ONE 03/10 1330 DC Teaching ED 03/10 1331 Prednisone 20 MG DAILY 03/11 1000 AC PO Prednisone 30 MG DAILY 03/09 1000 DC 03/10 PO 0918 Quetiapine Fumarate 25 MG QPM 03/06 2200 AC 03/09 PO 205 Rivaroxaban 20 MG DAILY 03/06 1552 AC 03/10 PO 0917 Tiotropium [place] 1 PUF DAILY 03/07 1000 AC 03/10 INH 0918 Trazodone HCl 100 MG QPM 03/06 2200 AC 03/09 PO 205 Vancomycin HCl 2,000 MG Q12H 03/08 1200 AC 03/10 Sodium Chloride 500 ML IV 1327 Last 24 Hrs of Lab/Chase Results Last 24 Hrs of Labs/Mics: Laboratory Tests 03/10/16 1100: Vancomycin Trough Cancelled 03/10/16 0633: Anion Gap 11, Estimated GFR > 60, BUN/Creatinine Ratio 30.0 H, CBC w Diff NO MAN DIFF REQ, RBC 3.29 L, MCV 98.7, MCH 33.5 H, RDW 13.7, MPV 9.9, Gran % 78.7 H, Lymphocytes % 11.6 L, Monocytes % 9.1, Eosinophils % 0.4, Basophils % 0.2, Absolute Granulocytes 8.7 H, Absolute Lymphocytes 1.3, Absolute Monocytes 1.0 H, Absolute Eosinophils 0, Absolute Basophils 0, PUBS MCHC 33.9 Assessment/Plan Assessment: Patient is a 50 YO F with PMH significant for A.Fib (on xarelto), COPD, T2DM, HTN came to the ER with chest pain radiating to the left arm and shortness of breath. She failed antimicrobial therapy with levofloxacin & steroid therapy as an outpatient. On examination she is also found to have a wound on her left foot along with high sugar (probably secondary to recent steroid intake). D-1999. Doppler negative for DVT, CTA negative for PE but shows RLL and DEBBI pneumonia. Blood sugars at admission is 548. Initially she was admitted to telemtry and subsequently found to be profoundly hypotensive after 4L of fluids and transfered to unit for pressors/central line placement while on xarelto.she was placed on a femoral central line eventually and started on levophed. Later she was found to have normal BP with a manual cuff and she was gradually tapered off the drip. She has been transferred to [facility] floor, we are currently managing her for following conditions: MRSA osteomyelitis and multilobar pneumonia * CT angio demonstrated left lower lobe and right upper lobe pneumonia. * Nectrotic ulcers present on distal second third left foot. Foot Xray shows osteolysis of left foot 2nd toe - podiatry consulted, have ordered a bone scan as MRI still pending IVC filter compatibility. * MRI of left foot not done as she had an IVC filter whose compatibility with MRI is unknown. Requested medical records from [facility] for post op report regarding her IVC filter placement. * Blood cultures X 2 positive for MRSA. * Started on vancomycin 2gm Q12 after discontinuation of ceftriaxone and azithromycin. * next vancomycin trough level today * Placed on quick prednisone taper -20X2(till 03/11), 10X1(03/12-03/13). * US chest revealed Small left pleural effusio which as per pulmonolgy is not amenable for thoracentesis. Type 2 Diabetes Mellitus * blood sugars are in 300's through out the night, On insulin drip. * Morning she was off the drip and her steroids are tapered very fast as of her sugars * Placed on levemir 25untis BID and novolg sliding scale * HbA1C level - 11.9 * Endocrine consulted - is on board. * will readjust scale depending on her sugar levels today. JOSE L * Resolved. * creatinine at admission is 1.3(baseline 1.8) * After CT angio it is incresed to 1.8 as a result of contrast induced nephropathy. * she was placed on fluids and her creatinine came down to 0.9. A.Fib * On xarelto History of COPD * TRC/Nebs Problem List: 1. Pneumonia 2. Osteomyelitis Pain Ratin Pain Location: left sided upper chest/back pain Pain Goal: Remain pain free Pain Plan: Dilaudid Tomorrow's Labs & Rationales: none
--- NOTE | 2016-03-10 15:17 | PN- Infect Dx ---
Subjective Subjective: Afebrile on steroids. She feels well with decreased left pleuritic chest pain. Objective Last 24 Hrs of Vital Signs/I&O Vital Signs Date Time Temp Pulse Resp B/P Pulse O2 O2 Flow FiO2 Ox Delivery Rate 03/10 812 97.7 70 18 134/81 95 Nasal 3.0L Cannula 03/10 0800 95 Nasal 3.0L Cannula 03/10 0756 Nasal 3.0L Cannula 03/10 0437 96 Nasal 3.0L Cannula 03/10 0041 97.7 67 20 138/60 94 Nasal 3.0L Cannula 03/10 0000 92 Nasal 3.0L Cannula 03/09 2041 95 Nasal 4.0L Cannula 03/09 1658 92 Nasal 3.0L Cannula 03/09 1600 94 Nasal 3.0L Cannula 03/09 1557 98.0 80 20 130/70 90 Room Air Intake & Output 03/10 1600 03/10 0800 03/10 0000 Intake Total 1100 860 360 Output Total Balance 1100 860 360 Intake, IV 500 500 Intake, Oral 600 360 360 Number 0 1 Bowel Movements Physical Exam Other Physical Findings: She appears comfortable in no acute distress Lungs mild inspiratory wheezes Heart regular rhythm with no murmur Extremities necrotic tips of the left second and third toes unchanged; PICC in the right upper extremity in place Results Last 24 Hours of Lab Results: Laboratory Tests 03/10 632 Chemistry Sodium (137 - 145 mmol/L) 134 L Potassium (3.5 - 5.1 mmol/L) 4.8 Chloride (98 - 107 mmol/L) 99 Carbon Dioxide (22 - 30 mmol/L) 24 Anion Gap (5 - 16) 11 BUN (7 - 17 mg/dL) 24 H Creatinine (0.5 - 1.0 mg/dL) 0.8 Estimated GFR (>60 ml/min) > 60 BUN/Creatinine Ratio (7 - 25 %) 30.0 H Hematology CBC w Diff NO MAN DIFF REQ WBC (4.8 - 10.8 /CUMM) 11.1 H RBC (4.20 - 5.40 /CUMM) 3.29 L Hgb (12.0 - 16.0 G/DL) 11.0 L Hct (37 - 47 %) 32.5 L MCV (81.0 - 99.0 FL) 98.7 MCH (27.0 - 31.0 PG) 33.5 H RDW (11.5 - 14.5 %) 13.7 Plt Count (130 - 400 /CUMM) 223 MPV (7.4 - 10.4 FL) 9.9 Gran % (42.2 - 75.2 %) 78.7 H Lymphocytes % (20.5 - 51.1 %) 11.6 L Monocytes % (1.7 - 9.3 %) 9.1 Eosinophils % (0 - 5 %) 0.4 Basophils % (0.0 - 2.0 %) 0.2 Absolute Granulocytes (1.4 - 6.5 /CUMM) 8.7 H Absolute Lymphocytes (1.2 - 3.4 /CUMM) 1.3 Absolute Monocytes (0.10 - 0.60 /CUMM) 1.0 H Absolute Eosinophils (0.0 - 0.7 /CUMM) 0 Absolute Basophils (0.0 - 0.2 /CUMM) 0 PUBS MCHC (33.0 - 37.0 G/DL) 33.9 Last 24 Hours of Chase Results: Blood cultures 2 March 07 remain negative Recent Imaging Studies: Chest x-ray March 10, personally reviewed, reveals persistent left pleural effusion with airspace opacity Assessment/Plan Impression: Continues to improve with temperatures remaining normal (on steroids) and white blood cell count continuing to decrease on Vancomycin, Day 3 of treatment for MRSA sepsis, presumably secondary to pneumonia, with a persistent left lung density on her recent chest x-ray, with a small effusion felt to be too small to tap. Her left pleuritic pain has improved. Doubt that her left second and third toes are the source of sepsis, but the x-ray does suggest the possibility of underlying osteomyelitis, and she has undergone a bone scan today as an MRI could not be done because of her IVC filter. Her Vancomycin trough level yesterday was mildly elevated, but it appears that it was done several hours before her dose. Suggestion: 1. Follow-up Echocardiogram 2. Follow-up bone scan 3. Repeat Vancomycin trough level with her next dose 4. Continue Vancomycin
--- NOTE | 2016-03-10 18:04 | NUCLEAR MEDICINE REPORT ---
EXAMINATION: NM BONE SCAN 3 PHASE CLINICAL INFORMATION: Necrotic ulcers in the second and third toes of the left foot. Suspected osteomyelitis. COMPARISON: No previous bone scan is available for comparison. Radiographs of the left foot dated 03/06/2015 are available for comparison. TECHNIQUE: Initial rapid sequence images were obtained over the feet during the bolus injection of 53.0 mCi Tc-99m HDP. Static images of the pelvis to the feet were then obtained 3.5 hours post injection. FINDINGS: Initial rapid sequence images show markedly increased flow to the distal aspect of the left foot involving the region of the distal left second and third digits. There is in addition a mild diffuse increase in flow to the left foot compared to the right. No additional focal abnormalities are present on the flow images in either foot. The blood pool images obtained immediately following the flow study show moderately increased blood pool activity in the distal aspect of the second and third digits of the left foot. There are also small mild foci of increased blood pool activity visualized in the distal metatarsal bones of the third and fourth digits of the right foot. The delayed static images show moderately intense abnormally increased activity in the distal aspects of the second and third digits of the left foot, with the abnormality in the second digit significantly more intense in the third digit. No other abnormalities are present in the left foot. In the right foot there is an intense focus of increased activity present in the distal aspect of the fifth digit. There are additional foci of mildly increased activity in the distal third and fourth metatarsal bones of the right foot, in the right first metatarsophalangeal joint region and in the region of the proximal interphalangeal joint of the second digit of the right foot. An additional focus of increased activity is present in the proximal right foot in the calcaneocuboid region. This focus is difficult to localize and may be entirely within the cuboid bone. In the other visualized bones there is a faint linear focus across the distal shaft at approximately junction of the middle and distal thirds of the right femur and there is a mild diffuse increase in activity in both knees, most prominently in the right patellar compartment. IMPRESSION: 1. Very prominent abnormalities in all 3 phases involving the distal aspect of the second and third digits of the left foot, most consistent with active osteomyelitis. 2. Additional mild abnormalities are are present in discrete foci in the distal aspects of the right third and fourth metatarsal bones, without definite flow abnormality but mild abnormality on the blood pool images which may represent early static uptake. These are nonspecific but because of the absence of flow abnormalities are probably due to helically traumatic or stress fractures. Healing osteomyelitis would be an additional possible explanation. 3. A very intense abnormality in the fifth digit of the right foot is noted, with no associated flow or blood pool abnormality. This is most likely due to a recent fracture. Correlation with radiographs of this is recommended for initial follow-up. 4. Additional mild abnormalities in the right first metatarsophalangeal joint and in the region of the right second proximal interphalangeal joint are nonspecific but most likely arthritic or traumatic in etiology. 5. A moderately intense abnormality on the delayed images only is visualized in the proximal right foot, and is likely in the cuboid bone. There is no associated flow or blood pool abnormality with this lesion and this is nonspecific and may be due to infection, trauma, or an arthritic lesion. Aseptic necrosis could also be responsible for this nonspecific finding.
[2016-03-10 19:19] VITALS: BP 143/93
[2016-03-10 23:00] VITALS: BP 136/84
--- NOTE | 2016-03-10 23:31 | NUR ---
PATIENT CALLED ME IN ROOM STATING SHE "JUST DOESN'T FEEL RIGHT" OFFERED NO NEW C/O PAIN, NO SOB VITALS 97.9 83 22 136/84 92% GAVE PATIENT TYLENOL 650MG WHILE DRAWING BLOOD NOTED PATIENT'S O2 WAS NOT ON, AFTER HER NEB TX TURNED ON TO 2L AND PATIENT STARTED FEELING BETTER 92% O2 SAT NOTED ABOVE ON ROOM AIR. CONTINUE TO MONITOR
[2016-03-11 08:32] VITALS: BP 140/81
--- NOTE | 2016-03-11 09:35 | PN- Housestaff ---
See Addendum Subjective Follow-up For: MRSA osteomyelitis Multilobar pneumonia Subjective: Seen and examined patient. Offers no complaints Review of Systems Constitutional: Denies: chills, diaphoresis, fever, malaise, weakness, unexplained weight loss. Cardiovascular: Denies: chest pain, edema, orthopena, palpitations, peripheral edema, syncope. Respiratory: Denies: cough, hemoptysis, orthopnea, short of breath, sputum production, stridor, wheezing. Objective Last 24 Hrs of Vital Signs/I&O Vital Signs Date Time Temp Pulse Resp B/P Pulse O2 O2 Flow FiO2 Ox Delivery Rate 03/11 1747 91 Nasal 2.0L Cannula 03/11 161 98.4 71 20 140/82 92 Nasal 2.0L Cannula 03/11 0832 98.3 72 20 140/81 95 Nasal 2.0L Cannula 03/11 0806 96 Nasal 2.0L Cannula 03/11 0800 94 Nasal 2.0L Cannula 03/11 0000 92 Nasal 2.0L Cannula 03/10 2300 97.9 83 22 136/84 92 Room Air 03/10 2210 Nasal 3.0L Cannula Intake & Output 03/11 1600 03/11 0800 03/11 0000 Intake Total 720 640 800 Output Total Balance 720 640 800 Intake, IV 520 Intake, Oral 720 120 800 Physical Exam General Appearance: Alert, No Acute Distress Cardiovascular: Normal S1, Normal S2 Lungs: Normal Air Movement Extremities: necrotic changes on left second and third toe Current Medications: Current Medications Sig/Teresita Start time Last Medication Dose Route Stop Time Status Admin Acetaminophen 650 MG .STK-MED ONE 03/10 2300 DC PO 03/10 2301 Acetaminophen 650 MG Q6P PRN 03/06 1615 AC 03/10 PO 2303 Albuterol Sulfate 3 ML EVERY 4 HRS/AWAKE 03/07 0900 AC 03/11 INH 1743 Budesonide/ 2 PUF BID 03/07 1000 AC 03/11 Formoterol Fumarate INH 1027 Cyclobenzaprine HCl 5 MG TID 03/09 1106 DC 03/10 PO 03/10 2201 2127 Diltiazem HCl 120 MG DAILY 03/06 1603 AC 03/11 PO 1028 Duloxetine HCl 60 MG DAILY 03/06 1603 AC 03/11 PO 1027 Gabapentin 600 MG Q8 03/07 0000 AC 03/11 PO 1355 Guaifenesin 600 MG Q12 03/10 1000 AC 03/11 PO 1027 Hyoscyamine 0.125 MG Q4 HRS NEEDED PRN 03/07 1000 AC 03/09 PO 0433 Insulin Aspart 20 UNITS .STK-MED ONE 03/11 1250 DC SC 03/11 1251 Insulin Aspart 21 UNITS .STK-MED ONE 03/11 1015 DC SC 03/11 1016 Insulin Aspart 0 TIDAC/HS 03/08 1200 AC 03/11 SC 1830 Insulin Detemir 32 UNITS BID 03/10 1000 AC 03/11 SC 1026 Omeprazole 40 MG DAILY AC 03/06 1604 AC 03/11 PO 0645 Oxycodone HCl 5 MG Q6P PRN 03/09 1800 AC 03/11 PO 1349 Oxymetazoline HCl 2 SPRAY BID 03/10 1415 AC 03/10 DHARA 03/13 1000 2126 Prednisone 20 MG DAILY 03/11 1000 AC 03/11 PO 1027 Quetiapine Fumarate 25 MG QPM 03/06 2200 AC 03/10 PO 2127 Rivaroxaban 20 MG DAILY 03/06 1552 AC 03/11 PO 1027 Tiotropium [place] 1 PUF DAILY 03/07 1000 AC 03/11 INH 1027 Trazodone HCl 100 MG QPM 03/06 2200 AC 03/10 PO 2127 Vancomycin HCl 2,000 MG Q12H 03/11 0200 AC 03/11 Sodium Chloride 500 ML IV 1348 Vancomycin HCl 2,000 MG Q12H 03/08 1200 DC 03/11 Sodium Chloride 500 ML IV 0205 Last 24 Hrs of Lab/Chase Results Last 24 Hrs of Labs/Mics: Laboratory Tests 03/10/16 2310: Vancomycin Trough 20.3 H Assessment/Plan Assessment: 50-year-old woman with PMH significant for A.Fib (on xarelto), COPD, T2DM, HTN, failed outpatient therapy with Levaquin and prednisone prior to admission, chest x-ray showing basilar infiltrate, current admission for severe left sided chest pain initially admitted to telemetry later found to be hypotensive requiring pressors and was transferred to ICU for sepsis. CTA chest negative for PE but showed right lower lobe pneumonia, negative lower extremity Dopplers, x-ray showed possible underlying osteomyelitis, cultures positive for MRSA Plan: Sepsis/pneumonia On vancomycin Day 4 Osteomyelitis Nectrotic ulcers present on distal second third left foot. Foot Xray shows osteolysis of left foot 2nd toe Bone scan suggestive of osteomyelitis Podiatry on board, recommending digital amputation to be done on Sunday Type 2 Diabetes Mellitus Endocrine on board, appreciate recommendations Levemir 32 units twice a day, insulin sliding scale Monitor fingersticks JOSE L Resolved A.Fib * Stable and On xarelto History of COPD * TRC/Nebs DVT Prophylaxis * On xarelto Code status * Full code Problem List: 1. JOSE L (acute kidney injury) 2. Pneumonia 3. Osteomyelitis Pain Ratin Pain Location: na Pain Goal: Pain 4 or less Pain Plan: current regimen Tomorrow's Labs & Rationales: cbc/bep
--- NOTE | 2016-03-11 11:33 | PN- Diabetes ---
Assessment/Plan Assessment: 50-year-old active smoker lady with past medical history significant for COPD, diabetes type 2 on metformin, hypertension, atrial fibrillation, was in ICU for COPD/pneumonia and hypotension. She was put on prednisone 40 mg twice a day and antibiotics. She was on Levophed drip which was off in the morning on 03/07/2016. Her glucose levels were > 400 and she was on an insulin drip initially. Prednisone was gradually decreased. She is on prednisone 20 mg today. Levemir was increased to 32 units twice a day. Novolog coverage before meals was adjusted multiple time. In addition, she is on Novolog coverage at bedtime. Her FSGs were 311, 268, 215, 224, 244 and 284. She was diagnosed with active osteomyelitis on left 2 nd and 3rd toes. She is going to have surgery done next Sunday. Plan: 1. continue the current Levemir 32 units twice a day; 2. increase Novolog coverage before meals by 2 units--detail see the inpatient DM order. 3. contiue the current Novolog coverage at bedtime; 4. monitor FSGs. will follow. Inpatient Diabetes Orders Before Each Meal: Bolus Insulin: Novolog < 80 mg/dl: no coverage 80-100 mg/dl: 14 units 101-120 mg/dl: 14 units 121-150 mg/dl: 14 units 151-200 mg/dl: 17 units 201-250 mg/dl: 20 units 251-300 mg/dl: 23 units 301-350 mg/dl: 25 units 351-400 mg/dl: 27 units > 400 mg/dl: 29 units Subjective Subjective: She feels okay this morning. Objective Last 24 Hrs of Vital Signs/I&O Vital Signs Date Time Temp Pulse Resp B/P Pulse O2 O2 Flow FiO2 Ox Delivery Rate 03/11 831 98.3 72 20 140/81 95 Nasal 2.0L Cannula 03/11 08 96 Nasal 2.0L Cannula 03/11 0000 92 Nasal 2.0L Cannula 03/10 2300 97.9 83 22 136/84 92 Room Air 03/10 2210 Nasal 3.0L Cannula 03/10 1918 98.1 84 18 143/93 92 03/10 1600 92 Nasal 2.0L Cannula Intake & Output 03/11 1600 03/11 0800 03/11 0000 Intake Total 640 800 Output Total Balance 640 800 Intake, IV 520 Intake, Oral 120 800 Findings Pertinent Lab/Chase Results: Laboratory Tests 03/10 2310 Toxicology Vancomycin Trough (10.0 - 20.0 ug/mL) 20.3 H
--- NOTE | 2016-03-11 12:26 | ECHOCARDIOGRAM REPORT ---
BRIGIDO CASILLAS Age: 50 : 1965 Gender: F Exam Date: 03/10/2016 19:20 Exam Location: [facility] Ht (in): 68 Wt (lb): 324 BSA: 2.74 BP: 120 / 80 Ordering Physician: REY SZYMANSKI, Referring Physician: REY SZYMANSKI, Technologist: DOREEN JACINTO, [facility], [facility] Room Number: [id number] Indications: Rhythm: Sinus Technical Quality: Technically difficult study FINDINGS Left Ventricle Normal size left ventricle. Left ventricular wall thickness at upper limits of normal. Normal left ventricular ejection fraction visually estimated at >65 %. Normal left ventricular diastolic filling pattern for age. Right Ventricle The right ventricle is normal in size and function. Right Atrium The right atrium is normal in size. Left Atrium Mild left atrial dilatation. Mitral Valve There is moderate to marked thickening of the mitral valve leaflets, especially the anterior leaflet. Mitral opening appears adequate. There is calcification also the chordal apparatus. There is mild to moderate calcification of the mitral annulus. There is moderate mitral regurgitation seen. Aortic Valve Diffuse thickening of the aortic valve cusps with reduced excursion. [id number] aortic stenosis. Trace aortic regurgitation. Tricuspid Valve The tricuspid valve is normal in structure and function. There is trace tricuspid regurgitation. Right ventricular systolic pressure estimated to be elevated at 40 mmHg. Pulmonic Valve Pulmonic valve not well visualized. Trace pulmonic regurgitation. Pericardium Normal pericardium without effusion. No pleural effusion. Great Vessels Normal aortic root dimension. The aortic arch and great vessels are well seen and are normal. CONCLUSIONS Left ventricular wall thickness at upper limits of normal. Normal left ventricular ejection fraction visually estimated at >65 Mild left atrial dilatation. There is moderate to marked thickening of the mitral valve leaflets, especially the anterior leaflet. Mitral opening appears adequate. There is calcification also the chordal apparatus. There is mild to moderate calcification of the mitral annulus. There is moderate mitral regurgitation seen. Diffuse thickening of the aortic valve cusps with reduced excursion. [id number] aortic stenosis. Trace aortic regurgitation. Right ventricular systolic pressure estimated to be elevated at 40 mmHg. Compared to echocardiogram of 01/14/2015, by report, the findings are similar. Gennaro Ying M.D. (Electronically Signed) Final Date: 11 March 2016 12:25 MEASUREMENTS (Male / Female) Normal Values 2D ECHO LV Diastolic Diameter PLAX 5.0 cm 4.2 - 5.9 / 3.9 - 5.3 cm LV Systolic Diameter PLAX 3.5 cm 2.1 - 4.0 cm LV Fractional Shortening PLAX 30.0 % 25 - 46 % LV Ejection Fraction 2D Teich 57.0 % IVS Diastolic Thickness 1.1 cm LVPW Diastolic Thickness 1.1 cm LV Relative Wall Thickness 0.4 LVOT Diameter 2.2 cm LA Systolic Diameter LX 4.2 cm 3.0 - 4.0 / 2.7 - 3.8 cm LA Volume 71.0 cm 18 - 58 / 22 - 52 cm M-MODE Aortic Root Diameter MM 3.1 cm LA Systolic Diameter MM 4.6 cm 3.0 - 4.0 / 2.7 - 3.8 cm LA Ao Ratio MM 1.5 DOPPLER AV Peak Velocity 292.0 cm/s AV Peak Gradient 34.1 mmHg AV Mean Velocity 218.0 cm/s AV Mean Gradient 21.0 mmHg AV Velocity Time Integral 67.2 cm LVOT Peak Velocity 114.0 cm/s LVOT Peak Gradient 5.2 mmHg LVOT Mean Velocity 78.5 cm/s LVOT Mean Gradient 3.0 mmHg LVOT Velocity Time Integral 26.8 cm LVOT Stroke Volume 101.9 cm LVOT Cardiac Index 2790.9 cm/minm AV Area Cont Eq vti 1.5 cm AV Area Cont Eq pk 1.5 cm MV Peak Velocity 154.0 cm/s MV Peak Gradient 9.5 mmHg MV Mean Velocity 95.9 cm/s MV Mean Gradient 4.0 mmHg Mitral E Point Velocity 89.8 cm/s Mitral A Point Velocity 106.0 cm/s Mitral E to A Ratio 0.8 MV PHT Velocity 174.0 cm/s MV Deceleration [place] 522.0 cm/s MV Pressure Half Time 100.0 ms MV Area PHT 2.2 cm MV Deceleration Time 211.0 ms MR Peak Velocity 554.0 cm/s MR Peak Gradient 122.8 mmHg MR ERO PISA 0.3 cm MR Regurgitant Volume PISA 72.4 cm TR Peak Velocity 316.0 cm/s TR Peak Gradient 39.9 mmHg PV Peak Velocity 113.0 cm/s PV Peak Gradient 5.1 mmHg LV E' Lateral Velocity 13.5 cm/s Mitral E to LV E' Lateral Ratio 6.7 LV E' Septal Velocity 9.3 cm/s Mitral E to LV E' Septal Ratio 9.7
--- NOTE | 2016-03-11 13:14 | PN- Podiatry ---
Subjective Subjective: Patient seen at bedside without any acute complaints. Patient does admit to some distress associated with anticipated digital amputations left foot. Otherwise, no complaints. Objective Vital Signs and I&Os Vital Signs Date Time Temp Pulse Resp B/P Pulse O2 O2 Flow FiO2 Ox Delivery Rate 03/11 831 98.3 72 20 140/81 95 Nasal 2.0L Cannula 03/11 805 96 Nasal 2.0L Cannula 03/11 799 94 Nasal 2.0L Cannula 03/11 0000 92 Nasal 2.0L Cannula 03/10 2300 97.9 83 22 136/84 92 Room Air 03/10 2210 Nasal 3.0L Cannula 03/10 1919 98.1 84 18 143/93 92 03/10 1600 92 Nasal 2.0L Cannula Intake & Output 03/11 1600 03/11 0000 03/10 1600 03/10 0000 Intake Total 356 103 6687 860 360 Output Total Balance 259 948 8258 860 360 Intake, IV 520 500 500 Intake, Oral 120 800 600 360 360 Number 0 1 Bowel Movements Patient 324 lb Weight Physical Exam: Dressing the foot clean dry and intact. Bone scan strongly suggestive of osteomyelitis to the distal tips of the left second third digits. Assessment/Plan Assessment/Plan Sepsis pneumonia and ostium myelitis left foot. Discussed digital amputations to be performed Sunday. Attending MD Review Statement Attending Statement Attending MD Statement: examined this patient
[2016-03-11 16:10] VITALS: BP 140/82
--- NOTE | 2016-03-11 17:14 | PN- Housestaff ---
Assessment/Plan Assessment: Patient is a 50 YO F with PMH significant for A.Fib (on xarelto), COPD, T2DM, HTN came to the ER with chest pain radiating to the left arm and shortness of breath. She failed antimicrobial therapy with levofloxacin & steroid therapy as an outpatient. On examination she is also found to have a wound on her left foot along with high sugar (probably secondary to recent steroid intake). D-1999. Doppler negative for DVT, CTA negative for PE but shows RLL and DEBBI pneumonia. Blood sugars at admission is 548. Initially she was admitted to telemtry and subsequently found to be profoundly hypotensive after 4L of fluids and transfered to unit for pressors/central line placement while on xarelto.she was placed on a femoral central line eventually and started on levophed. Later she was found to have normal BP with a manual cuff and she was gradually tapered off the drip. She has been transferred to [facility] floor, we are currently managing her for following conditions: MRSA osteomyelitis and multilobar pneumonia * CT angio demonstrated left lower lobe and right upper lobe pneumonia. * Nectrotic ulcers present on distal second third left foot. Foot Xray shows osteolysis of left foot 2nd toe - podiatry consulted, have ordered a bone scan as MRI still pending IVC filter compatibility. * MRI of left foot not done as she had an IVC filter whose compatibility with MRI is unknown. Requested medical records from [facility] for post op report regarding her IVC filter placement. * Blood cultures X 2 positive for MRSA. * Started on vancomycin 2gm Q12 after discontinuation of ceftriaxone and azithromycin. * next vancomycin trough level today * Placed on quick prednisone taper -20X2(till 03/11), 10X1(03/12-03/13). * US chest revealed Small left pleural effusio which as per pulmonolgy is not amenable for thoracentesis. Type 2 Diabetes Mellitus * blood sugars are in 300's through out the night, On insulin drip. * Morning she was off the drip and her steroids are tapered very fast as of her sugars * Placed on levemir 25untis BID and novolg sliding scale * HbA1C level - 11.9 * Endocrine consulted - is on board. * will readjust scale depending on her sugar levels today. JOSE L * Resolved. * creatinine at admission is 1.3(baseline 1.8) * After CT angio it is incresed to 1.8 as a result of contrast induced nephropathy. * she was placed on fluids and her creatinine came down to 0.9. A.Fib * On xarelto History of COPD * TRC/Nebs
[2016-03-12 01:14] VITALS: BP 164/91
[2016-03-12 06:12] LABS: ABSOLUTE BASOPHIL COUNT 0 /CUMM (0.0-0.2); ABSOLUTE EOSINOPHIL COUNT 0.1 /CUMM (0.0-0.7); ABSOLUTE GRANULOCYTE CT 11.9 /CUMM (1.4-6.5); ABSOLUTE LYMPH COUNT 1.9 /CUMM (1.2-3.4); BASOPHIL % 0.3 % (0.0-2.0); EOSINOPHIL % 0.3 % (0-5); HEMATOCRIT 33.6 % (37-47); MEAN CORPUSCULAR HGB 33.5 PG (27.0-31.0); MEAN CORPUSCULAR HGB CONC 34.1 G/DL (33.0-37.0); MEAN CORPUSCULAR VOLUME 98.2 FL (81.0-99.0); MEAN PLATELET VOLUME 10.3 FL (7.4-10.4); PLATELET COUNT 256 /CUMM (130-400); RBC DISTRIBUTION WIDTH 13.6 % (11.5-14.5); RED BLOOD CELL CT 3.43 /CUMM (4.20-5.40); WHITE BLOOD CELL COUNT 14.9 /CUMM (4.8-10.8)
[2016-03-12 08:30] VITALS: BP 122/76
--- NOTE | 2016-03-12 09:01 | PN- Housestaff ---
PETRA RESTREPO,[facility] 03/12/16 0901: Subjective Follow-up For: MRSA osteomyelitis Multilobar pneumonia Subjective: Patient seen and examined this morning. She is ago for surgery tomorrow for possible debridement/amputation, remains afebrile, otherwise is within normal limits, no other complaints. She remains on 3 L of nasal cannula oxygen satting and high 90s. Review of Systems Constitutional: Denies: chills, fever. Cardiovascular: Denies: chest pain, orthopena, palpitations. Respiratory: Reports: cough, short of breath, sputum production. Gastrointestinal: Denies: abdominal pain, constipation, diarrhea, nausea, vomiting. Genitourinary: Denies: dysuria, frequency. Objective Last 24 Hrs of Vital Signs/I&O Vital Signs Date Time Temp Pulse Resp B/P Pulse O2 O2 Flow FiO2 Ox Delivery Rate 03/12 0830 97.8 73 20 122/76 95 Nasal 2.0L Cannula 03/12 08 94 Nasal 2.0L Cannula 03/12 0114 97.9 73 20 164/91 97 03/12 0000 Nasal 2.0L Cannula 03/11 1747 91 Nasal 2.0L Cannula 03/11 1610 98.4 71 20 140/82 92 Nasal 2.0L Cannula Intake & Output 03/12 1600 03/12 0800 03/12 0000 Intake Total 300 1340 Output Total Balance 300 1340 Intake, IV 500 Intake, Oral 300 840 Physical Exam General Appearance: Alert, Oriented X3, Cooperative Cardiovascular: Regular Rate, Normal S1, Normal S2 Lungs: Clear to Auscultation, Normal Air Movement Abdomen: Normal Bowel Sounds, Soft, No Tenderness Extremities: No Clubbing, No Cyanosis, left second and third toe necrosis Current Medications: Current Medications Sig/Teresita Start time Last Medication Dose Route Stop Time Status Admin Acetaminophen 650 MG Q6P PRN 03/06 1615 AC 03/12 PO 0928 Albuterol Sulfate 3 ML EVERY 4 HRS/AWAKE 03/07 0900 AC 03/12 INH 0758 Budesonide/ 2 PUF BID 03/07 1000 AC 03/12 Formoterol Fumarate INH 0923 Diltiazem HCl 120 MG DAILY 03/06 1603 AC 03/12 PO 0921 Duloxetine HCl 60 MG DAILY 03/06 1603 AC 03/12 PO 0922 Gabapentin 600 MG Q8 03/07 0000 AC 03/12 PO 0551 Guaifenesin 600 MG Q12 03/10 1000 AC 03/12 PO 0922 Hyoscyamine 0.125 MG Q4 HRS NEEDED PRN 03/07 1000 AC 03/09 PO 0433 Insulin Aspart 3 UNITS .STK-MED ONE 03/11 2153 [facility] 03/11 2154 Insulin Aspart 20 UNITS .STK-MED ONE 03/11 1250 DC IA 03/11 1251 Insulin Aspart 0 TIDAC/HS 03/08 1200 03/12 IA 0839 Insulin Detemir 20 UNITS ONCE ONE 03/12 2200 [facility] 03/12 2201 Insulin Detemir 32 UNITS BID 03/10 1000 DC 03/12 SC 0921 Omeprazole 40 MG DAILY AC 03/06 1604 AC 03/12 PO 0551 Oxycodone HCl 5 MG Q6P PRN 03/09 1800 AC 03/12 PO 0551 Oxymetazoline HCl 2 SPRAY BID 03/10 1415 AC 03/10 DHARA 03/13 1000 2126 Prednisone 20 MG DAILY 03/11 1000 AC 03/12 PO 0922 Quetiapine Fumarate 25 MG QPM 03/06 2200 AC 03/11 PO 2220 Rivaroxaban 20 MG DAILY 03/06 1552 AC 03/12 PO 0922 Tiotropium [place] 1 PUF DAILY 03/07 1000 AC 03/12 INH 0923 Trazodone HCl 100 MG QPM 03/06 2200 AC 03/11 PO 2220 Vancomycin HCl 2,000 MG Q12H 03/11 0200 AC 03/12 Sodium Chloride 500 ML IV 0117 Last 24 Hrs of Lab/Chase Results Last 24 Hrs of Labs/Mics: Laboratory Tests 03/12/16 0530: CBC w Diff NO MAN DIFF REQ, RBC 3.43 L, MCV 98.2, MCH 33.5 H, RDW 13.6, MPV 10.3, Gran % 80.0 H, Lymphocytes % 12.5 L, Monocytes % 6.9, Eosinophils % 0.3, Basophils % 0.3, Absolute Granulocytes 11.9 H, Absolute Lymphocytes 1.9, Absolute Monocytes 1.0 H, Absolute Eosinophils 0.1, Absolute Basophils 0, PUBS MCHC 34.1, Random Vancomycin 45.3 Assessment/Plan Assessment: 50-year-old woman with PMH significant for A.Fib (on xarelto), COPD, T2DM, HTN, failed outpatient therapy with Levaquin and prednisone prior to admission, chest x-ray showing basilar infiltrate, current admission for severe left sided chest pain initially admitted to telemetry later found to be hypotensive requiring pressors and was transferred to ICU for sepsis. CTA chest negative for PE but showed right lower lobe pneumonia, negative lower extremity Dopplers, x-ray showed possible underlying osteomyelitis, cultures positive for MRSA Plan: Sepsis/pneumonia On vancomycin, DOSE REDUCED TO 1.5GM q12, WILL check a trough level before the fifth Dose. Osteomyelitis Nectrotic ulcers present on distal second third left foot. Foot Xray shows osteolysis of left foot 2nd toe Bone scan suggestive of osteomyelitis Podiatry on board, recommending digital amputation to be done on Sunday Type 2 Diabetes Mellitus Endocrine on board, appreciate recommendations Levemir 32 units twice a day, insulin sliding scale Monitor fingersticks Patient to get 20 units of Levemir tonight, will start back on 32 units twice a day after patient is back from surgery tomorrow. JOSE L Resolved A.Fib * Stable and On xarelto History of COPD * TRC/Nebs DVT Prophylaxis * On xarelto Code status * Full code Problem List: 1. Osteomyelitis Pain Ratin Pain Location: none Pain Goal: Remain pain free Pain Plan: Roxicodone 5 mg every 6 Tomorrow's Labs & Rationales: CBC in setting of infection PETRA RESTREPO,[facility] 03/12/16 1522: Attending MD Review Statement Attending Statement Attending MD Statement: examined this patient, discuss w/resident/PA/ADMINISTRATIVE MANAGER, agreed w/resident/PA/ADMINISTRATIVE MANAGER, discussed with family, reviewed EMR data (avail), discussed with nursing, reviewed images Attending Assessment/Plan: 50-year-old morbidly obese female with past medical history significant for A. fib ( On Xarelto) , uncontrolled type 2 diabetes mellitus, hypertension, COPD is being admitted on the floor for for pneumonia. She was initially admitted to the ICU for hypotension requiring pressors. She was then downgraded to the floor for further management. Patient was seen and examined on the bedside and reported that she is doing much better today. 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 Patient vancomycin per ID will be reduced to 1.5 g IV every 12 hours and will check a trough level before the fifth. Dose
--- NOTE | 2016-03-12 10:30 | PN- Diabetes ---
Assessment/Plan Assessment: 50-year-old active smoker lady with past medical history significant for COPD, diabetes type 2 on metformin, hypertension, atrial fibrillation, was in ICU for COPD/pneumonia and hypotension. She was put on prednisone 40 mg twice a day and antibiotics. She was on Levophed drip which was off in the morning on 03/07/2016. Her glucose levels were > 400 and she was on an insulin drip initially. Prednisone was gradually decreased. She is on prednisone 20 mg today. Levemir was increased to 32 units twice a day. Novolog coverage before meals was adjusted multiple time. In addition, she is on Novolog coverage at bedtime. Her FSGs [id number], 300, 293 and 242. She was diagnosed with active osteomyelitis on left 2nd and 3rd toes. She is going to have surgery done tomorrow. She will be kept NPO after midnight tonight. Plan: 1. decrease Levemir to 20 unis at bedtime tonight as she will be kept NPO tonight; 2. restart Levemir 32 units twice a day after she is back from OR tomorrow; 3. increase Novolog coverage before meals ( hold Novolog coverage if she skips meal)---detail see the inpatient DM order; 4. continue the current Novolog coverage at bedtime; 5. monitor FSGs. will follow. Inpatient Diabetes Orders Before Each Meal: Bolus Insulin: Novolog < 80 mg/dl: no coverage 80-100 mg/dl: 16 units 101-120 mg/dl: 16 units 121-150 mg/dl: 16 units 151-200 mg/dl: 19 units 201-250 mg/dl: 22 units 251-300 mg/dl: 25 units 301-350 mg/dl: 27 units 351-400 mg/dl: 29 units > 400 mg/dl: 31 units Subjective Subjective: She has no special complaints this morning. Objective Last 24 Hrs of Vital Signs/I&O Vital Signs Date Time Temp Pulse Resp B/P Pulse O2 O2 Flow FiO2 Ox Delivery Rate 03/12 829 97.8 73 20 122/76 95 Nasal 2.0L Cannula 03/12 08 94 Nasal 2.0L Cannula 03/12 0114 97.9 73 20 164/91 97 03/12 0000 Nasal 2.0L Cannula 03/11 1747 91 Nasal 2.0L Cannula 03/11 1610 98.4 71 20 140/82 92 Nasal 2.0L Cannula Intake & Output 03/12 1600 03/12 0800 03/12 0000 Intake Total 300 1340 Output Total Balance 300 1340 Intake, IV 500 Intake, Oral 300 840 Findings Pertinent Lab/Chase Results: Laboratory Tests 03/12 05 Hematology CBC w Diff NO MAN DIFF REQ WBC (4.8 - 10.8 /CUMM) 14.9 H RBC (4.20 - 5.40 /CUMM) 3.43 L Hgb (12.0 - 16.0 G/DL) 11.5 L Hct (37 - 47 %) 33.6 L MCV (81.0 - 99.0 FL) 98.2 MCH (27.0 - 31.0 PG) 33.5 H RDW (11.5 - 14.5 %) 13.6 Plt Count (130 - 400 /CUMM) 256 MPV (7.4 - 10.4 FL) 10.3 Gran % (42.2 - 75.2 %) 80.0 H Lymphocytes % (20.5 - 51.1 %) 12.5 L Monocytes % (1.7 - 9.3 %) 6.9 Eosinophils % (0 - 5 %) 0.3 Basophils % (0.0 - 2.0 %) 0.3 Absolute Granulocytes (1.4 - 6.5 /CUMM) 11.9 H Absolute Lymphocytes (1.2 - 3.4 /CUMM) 1.9 Absolute Monocytes (0.10 - 0.60 /CUMM) 1.0 H Absolute Eosinophils (0.0 - 0.7 /CUMM) 0.1 Absolute Basophils (0.0 - 0.2 /CUMM) 0 PUBS MCHC (33.0 - 37.0 G/DL) 34.1 Toxicology Random Vancomycin (ug/ml) 45.3
--- NOTE | 2016-03-12 12:18 | PN- Infect Dx ---
Subjective Subjective: Afebrile on steroids. She feels overall improved but still notes occasional left chest pain/spasms. Objective Last 24 Hrs of Vital Signs/I&O Vital Signs Date Time Temp Pulse Resp B/P Pulse O2 O2 Flow FiO2 Ox Delivery Rate 03/12 829 97.8 73 20 122/76 95 Nasal 2.0L Cannula 03/12 08 94 Nasal 2.0L Cannula 03/12 0114 97.9 73 20 164/91 97 03/12 0000 Nasal 2.0L Cannula 03/11 1747 91 Nasal 2.0L Cannula 03/11 1610 98.4 71 20 140/82 92 Nasal 2.0L Cannula Intake & Output 03/12 1600 03/12 0000 Intake Total 300 1340 Output Total Balance 300 1340 Intake, IV 500 Intake, Oral 300 840 Physical Exam Other Physical Findings: She appears comfortable in no acute distress Lungs decreased breath sounds at the left base Heart regular rhythm with no murmur Extremities necrosis of the distal aspects of both the second and third toes of the left foot; PICC in the right upper extremity with no inflammation at the site Results Last 24 Hours of Lab Results: Laboratory Tests 03/12 529 Hematology CBC w Diff NO MAN DIFF REQ WBC (4.8 - 10.8 /CUMM) 14.9 H RBC (4.20 - 5.40 /CUMM) 3.43 L Hgb (12.0 - 16.0 G/DL) 11.5 L Hct (37 - 47 %) 33.6 L MCV (81.0 - 99.0 FL) 98.2 MCH (27.0 - 31.0 PG) 33.5 H RDW (11.5 - 14.5 %) 13.6 Plt Count (130 - 400 /CUMM) 256 MPV (7.4 - 10.4 FL) 10.3 Gran % (42.2 - 75.2 %) 80.0 H Lymphocytes % (20.5 - 51.1 %) 12.5 L Monocytes % (1.7 - 9.3 %) 6.9 Eosinophils % (0 - 5 %) 0.3 Basophils % (0.0 - 2.0 %) 0.3 Absolute Granulocytes (1.4 - 6.5 /CUMM) 11.9 H Absolute Lymphocytes (1.2 - 3.4 /CUMM) 1.9 Absolute Monocytes (0.10 - 0.60 /CUMM) 1.0 H Absolute Eosinophils (0.0 - 0.7 /CUMM) 0.1 Absolute Basophils (0.0 - 0.2 /CUMM) 0 PUBS MCHC (33.0 - 37.0 G/DL) 34.1 Toxicology Random Vancomycin (ug/ml) 45.3 Last 24 Hours of Chase Results: No recent cultures Recent Imaging Studies: Chest x-ray March 10 persistent left pleural effusion with airspace opacity Bone scan March 10 reveals very prominent abnormalities involving the distal aspects of the second and third digits of the left foot, most consistent with active osteomyelitis Echocardiogram March 10 reveals moderate to marked thickening of the mitral valve leaflets, diffuse thickening of the aortic valve cusps with mild to moderate aortic stenosis, with no vegetations; overall no change from the previous Echo Assessment/Plan Impression: Continues to improve with temperatures remaining normal (on steroids) on Vancomycin now Day 5 of treatment for MRSA sepsis, presumably secondary to pneumonia. Her white blood cell count has increased, possibly secondary to the steroids, but, with persistent left chest pain and left lower lobe density on chest x-ray, an empyema remains a concern. An ultrasound obtained 4 days ago, however, revealed a small amount of fluid not felt to be amenable to thoracentesis. The positive bone scan is noted, and she is apparently scheduled for debridement/partial amputation of the second and third toes of the left foot in the a.m. Her Vancomycin trough level on March 10 was mildly elevated, but a random level this morning was quite elevated, of questionable significance as it was obtained soon after the dose of Vancomycin was given. Suggestion: 1. Await OR in the a.m. for partial amputation of the right second and third toes 2. Repeat ultrasound of the left chest if pleuritic chest pain and/or leukocytosis persists 3. Decrease Vancomycin to 1.5 g IV every 12 hours and recheck a trough level before the fourth or fifth dose of the new regimen
[2016-03-12 15:53] VITALS: BP 132/78
--- NOTE | 2016-03-12 20:31 | NUR ---
PATIENTS BLOOD SUGAR FOR DINNER WAS 396. 29 UNITS GIVEN ORDERED. 1 HOUR RECHECK WAS 407. POWER PRESS OPERATOR YESENIA NOTIFIED. ONE TIME OF 10 UNITS OF NOVALOG GIVEN ORDERED. ONE HOUR RECHECK WAS 445. POWER PRESS OPERATOR YESENIA NOTIFIED. TO RECKECK IN AND HOUR PER POWER PRESS OPERATOR. ONCOMING NURSE NOTIFIED.
[2016-03-13 00:06] VITALS: BP 124/72
--- NOTE | 2016-03-13 07:39 | PN- Housestaff ---
PETRA RESTREPO,[facility] 03/13/16 0739: Subjective Follow-up For: MRSA osteomyelitis Multilobar pneumonia Subjective: Patient seen and examined this morning. She was lying comfortably in bed in no acute distress. She is to go to or today for amputation. She is nothing by mouth for this procedure. Afebrile, vitals within normal limits. No other complaints Review of Systems Constitutional: Reports: see HPI. Objective Last 24 Hrs of Vital Signs/I&O Vital Signs Date Time Temp Pulse Resp B/P Pulse O2 O2 Flow FiO2 Ox Delivery Rate 03/13 1648 98.0 60 20 132/72 94 Room Air 03/13 1600 95 Room Air 03/13 1110 Nasal 2.0L Cannula 03/13 0838 98.2 68 20 126/80 98 Nasal 2.0L Cannula 03/13 0812 97 Nasal 2.0L Cannula 03/13 0800 98 Nasal 2.0L Cannula 03/13 0006 97.8 82 20 124/72 94 Nasal 2.0L Cannula 03/13 0000 Nasal 2.0L Cannula Intake & Output 03/13 1600 03/13 0800 03/13 0000 Intake Total 250 0 300 Output Total Balance 250 0 300 Intake, IV 250 Intake, Oral 0 0 300 Number 0 Bowel Movements Physical Exam General Appearance: Alert, Oriented X3, Cooperative, No Acute Distress Cardiovascular: Regular Rate, Normal S1, Normal S2, No Murmurs Lungs: Clear to Auscultation, Normal Air Movement Abdomen: Normal Bowel Sounds, Soft, No Tenderness Extremities: No Clubbing, No Cyanosis, No Edema, necrotic left second and third toe Current Medications: Current Medications Sig/Teresita Start time Last Medication Dose Route Stop Time Status Admin Acetaminophen 650 MG Q6P PRN 03/06 1615 AC 03/12 PO 0928 Albuterol Sulfate 3 ML EVERY 4 HRS/AWAKE 03/07 0900 AC 03/13 INH 1600 Budesonide/ 2 PUF BID 03/07 1000 AC 03/13 Formoterol Fumarate INH 1219 Diltiazem HCl 120 MG DAILY 03/06 1603 AC 03/13 PO 0951 Duloxetine HCl 60 MG DAILY 03/06 1603 AC 03/12 PO 0922 Gabapentin 600 MG Q8 03/07 0000 AC 03/13 PO 0636 Guaifenesin 600 MG Q12 03/10 1000 AC 03/12 PO 2118 Hyoscyamine 0.125 MG Q4 HRS NEEDED PRN 03/07 1000 AC 03/09 PO 0433 Insulin Aspart 0 TIDAC/HS 03/13 1700 AC SC Insulin Aspart 10 UNITS ONCE ONE 03/13 1445 CAN SC 03/13 1446 Insulin Aspart 10 UNITS ONCE ONE 03/12 1815 DC 03/12 SC 03/12 181 1818 Insulin Aspart 0 TIDAC/HS 03/08 1200 DC 03/12 SC 03/12 2300 2117 Insulin Detemir 20 UNITS 2200 03/13 2200 AC SC Insulin Detemir 20 UNITS ONCE ONE 03/12 2200 DC 03/12 SC 03/12 2201 2117 Insulin Human Regular 0 Q6 03/13 0600 DC 03/13 SC 1218 Omeprazole 40 MG DAILY AC 03/06 1604 AC 03/13 PO 0636 Oxycodone HCl 5 MG Q6P PRN 03/09 1800 AC 03/13 PO 1219 Oxymetazoline HCl 2 SPRAY BID 03/10 1415 DC 03/10 DHARA 03/13 1000 2126 Patient Medication 1 ED .STK-MED ONE 03/13 1353 AR Teaching ED 03/13 1354 Prednisone 20 MG DAILY 03/11 1000 AC 03/13 PO 1542 Quetiapine Fumarate 25 MG QPM 03/06 2200 AC 03/12 PO 2118 Rivaroxaban 20 MG DAILY 03/06 1552 AC 03/13 PO 0951 Tiotropium [place] 1 PUF DAILY 03/07 1000 AC 03/13 INH 0951 Trazodone HCl 100 MG QPM 03/06 2200 AC 03/12 PO 2118 Vancomycin HCl 1,500 MG Q12 03/12 2200 AC 03/13 Sodium Chloride 250 ML IV 1105 Last 24 Hrs of Lab/Chase Results Last 24 Hrs of Labs/Mics: Laboratory Tests 03/13/16 0609: CBC w Diff NO MAN DIFF REQ, RBC 3.23 L, MCV 97.9, MCH 32.9 H, RDW 13.6, MPV 9.8, Gran % 78.6 H, Lymphocytes % 13.6 L, Monocytes % 7.4, Eosinophils % 0.4, Basophils % 0 L, Absolute Granulocytes 11.3 H, Absolute Lymphocytes 2.0, Absolute Monocytes 1.1 H, Absolute Eosinophils 0.1, Absolute Basophils 0, PUBS MCHC 33.7 Assessment/Plan Assessment: 50-year-old woman with PMH significant for A.Fib (on xarelto), COPD, T2DM, HTN, failed outpatient therapy with Levaquin and prednisone prior to admission, chest x-ray showing basilar infiltrate, current admission for severe left sided chest pain initially admitted to telemetry later found to be hypotensive requiring pressors and was transferred to ICU for sepsis. CTA chest negative for PE but showed right lower lobe pneumonia, negative lower extremity Dopplers, x-ray showed possible underlying osteomyelitis, cultures positive for MRSA Plan: Sepsis/pneumonia On vancomycin, DOSE REDUCED TO 1.5GM q12, WILL check a trough level before the fifth Dose. Osteomyelitis Nectrotic ulcers present on distal second third left foot. Foot Xray shows osteolysis of left foot 2nd toe Bone scan suggestive of osteomyelitis Podiatry on board, recommending digital amputation to be done today Type 2 Diabetes Mellitus Endocrine on board, appreciate recommendations Levemir 32 units twice a day, insulin sliding scale Monitor fingersticks Patient to get 20 units of Levemir tonight, will start back on 32 units twice a day after patient is back from surgery tomorrow. JOSE L Resolved A.Fib * Stable and On xarelto History of COPD * TRC/Nebs DVT Prophylaxis * On xarelto Code status * Full code Problem List: 1. JOSE L (acute kidney injury) 2. Pneumonia Pain Ratin Pain Location: left foot Pain Goal: Remain pain free Pain Plan: Roxicodone 5 mg every 6 Tomorrow's Labs & Rationales: none POOL RESTREPO,VIKTORIYA 03/13/16 1203: Attending MD Review Statement Attending Statement Attending MD Statement: examined this patient, discuss w/resident/PA/CASING SPLITTER, agreed w/resident/PA/CASING SPLITTER, discussed with family, reviewed EMR data (avail), discussed with nursing, discussed with case mgmt, amended to note Attending Assessment/Plan: Patient seen and examined. Resting comfortably and not in acute distress. was present at the bedside. She is afebrile and hemodynamically stable. She reports significant improvement of her left-sided pleuritic chest pain. She is scheduled to undergo surgical intervention for posterior mitis of her toes today. Once she is cleared by the podiatry service we will anticipate discharge probably to a [facility] facility for short-term rehabilitation and antibiotic therapy as directed by the ID service. On examination lungs are clear bilaterally with mildly diminished air entry in the left lung base. Her glucose levels were very high yesterday. She reports having [employer] food for dinner. She has been counseled on the need to maintain a proper diet. We will follow recommendations of the endocrinology service.
[2016-03-13 07:51] LABS: ABSOLUTE BASOPHIL COUNT 0 /CUMM (0.0-0.2); ABSOLUTE EOSINOPHIL COUNT 0.1 /CUMM (0.0-0.7); ABSOLUTE GRANULOCYTE CT 11.3 /CUMM (1.4-6.5); ABSOLUTE MONOCYTE COUNT 1.1 /CUMM (0.10-0.60); BASOPHIL % 0 % (0.0-2.0); EOSINOPHIL % 0.4 % (0-5); GRANULOCYTE % 78.6 % (42.2-75.2); HEMATOCRIT 31.7 % (37-47); MEAN CORPUSCULAR HGB 32.9 PG (27.0-31.0); MEAN CORPUSCULAR HGB CONC 33.7 G/DL (33.0-37.0); MEAN CORPUSCULAR VOLUME 97.9 FL (81.0-99.0); MEAN PLATELET VOLUME 9.8 FL (7.4-10.4); PLATELET COUNT 232 /CUMM (130-400); RBC DISTRIBUTION WIDTH 13.6 % (11.5-14.5); RED BLOOD CELL CT 3.23 /CUMM (4.20-5.40); WHITE BLOOD CELL COUNT 14.3 /CUMM (4.8-10.8)
--- NOTE | 2016-03-13 08:30 | PN- Diabetes ---
Assessment/Plan Assessment: 50-year-old active smoker lady with past medical history significant for COPD, diabetes type 2 on metformin, hypertension, atrial fibrillation, was in ICU for COPD/pneumonia and hypotension. She was put on prednisone 40 mg twice a day and antibiotics. She was on Levophed drip which was off in the morning on 03/07/2016. Her glucose levels were > 400 and she was on an insulin drip initially. Prednisone was gradually decreased. She is on prednisone 20 mg today. Levemir was increased to 32 units twice a day. Novolog coverage before meals was adjusted multiple time. In addition, she is on Novolog coverage at bedtime. Her FSGs were 242, 386, 407, 445, 291, 213 and 261. She was diagnosed with active osteomyelitis on left 2nd and 3rd toes. She is going to have surgery done today. She has been kept NPO since midnight. She received Levemir 20 units last night. Now she is on RISS every 6 hours. Plan: 1. adjust RISS with starting the coverage when her glucose level is more than 150--detail see the insulin order; 2. after she is back from OR and is ready to eat, please restart Levemir 32 units twice a day, previous Novolog coverage before meals and previous Novolog coverage at bedtime; 3. monitor FSGs. will follow. Please call me if there are any questions. Inpatient Diabetes Orders Every 6 Hours: Bolus Insulin: Novolin R < 80 mg/dl: no coverage 80-100 mg/dl: no coverage 101-120 mg/dl: no coverage 121-150 mg/dl: no coverage 151-200 mg/dl: 2 units 201-250 mg/dl: 4 units 251-300 mg/dl: 6 units 301-350 mg/dl: 8 units 351-400 mg/dl: 10 units > 400 mg/dl: 12 units Subjective Subjective: She is currently waiting for the procedure. Objective Last 24 Hrs of Vital Signs/I&O Vital Signs Date Time Temp Pulse Resp B/P Pulse O2 O2 Flow FiO2 Ox Delivery Rate 03/13 811 97 Nasal 2.0L Cannula 03/13 0006 97.8 82 20 124/72 94 Nasal 2.0L Cannula 03/13 0000 Nasal 2.0L Cannula 03/12 1631 95 Nasal 2.0L Cannula 03/12 1553 98.3 75 20 132/78 94 Nasal 2.0L Cannula 03/12 1235 96 Nasal 2.0L Cannula 03/12 0830 97.8 73 20 122/76 95 Nasal 2.0L Cannula Intake & Output 03/13 1600 03/13 0800 03/13 0000 Intake Total 0 300 Output Total Balance 0 300 Intake, Oral 0 300 Findings Pertinent Lab/Chase Results: Laboratory Tests 03/13 608 Hematology CBC w Diff NO MAN DIFF REQ WBC (4.8 - 10.8 /CUMM) 14.3 H RBC (4.20 - 5.40 /CUMM) 3.23 L Hgb (12.0 - 16.0 G/DL) 10.7 L Hct (37 - 47 %) 31.7 L MCV (81.0 - 99.0 FL) 97.9 MCH (27.0 - 31.0 PG) 32.9 H RDW (11.5 - 14.5 %) 13.6 Plt Count (130 - 400 /CUMM) 232 MPV (7.4 - 10.4 FL) 9.8 Gran % (42.2 - 75.2 %) 78.6 H Lymphocytes % (20.5 - 51.1 %) 13.6 L Monocytes % (1.7 - 9.3 %) 7.4 Eosinophils % (0 - 5 %) 0.4 Basophils % (0.0 - 2.0 %) 0 L Absolute Granulocytes (1.4 - 6.5 /CUMM) 11.3 H Absolute Lymphocytes (1.2 - 3.4 /CUMM) 2.0 Absolute Monocytes (0.10 - 0.60 /CUMM) 1.1 H Absolute Eosinophils (0.0 - 0.7 /CUMM) 0.1 Absolute Basophils (0.0 - 0.2 /CUMM) 0 PUBS MCHC (33.0 - 37.0 G/DL) 33.7
[2016-03-13 08:38] VITALS: BP 126/80
[2016-03-13 16:48] VITALS: BP 132/72
[2016-03-14 00:40] VITALS: BP 126/70
[2016-03-14 08:58] VITALS: BP 140/90
--- NOTE | 2016-03-14 09:08 | PN- Diabetes ---
Assessment/Plan Assessment: 50-year-old active smoker lady with past medical history significant for COPD, diabetes type 2 on metformin, hypertension, atrial fibrillation, was in ICU for COPD/pneumonia and hypotension. She was put on prednisone 40 mg twice a day and antibiotics. She was on Levophed drip which was off in the morning on 03/07/2016. Her glucose levels were > 400 and she was on an insulin drip initially. Prednisone was gradually decreased. She is on prednisone 20 mg today. Levemir was increased to 32 units twice a day. Novolog coverage before meals was adjusted multiple time. In addition, she was on Novolog coverage at bedtime. She was diagnosed with active osteomyelitis on left 2nd and 3rd toes. She didn't have procedure done on 03/13/2016 due to scheduling issue. She is going to have surgery done this afternoon. She has been kept NPO. Now she is on RISS every 6 hours and D5NS at 50 ml/hour. Her most recent FSG is 219. Plan: 1. continue RISS with starting the coverage when her glucose level is more than 150--detail see the insulin order; 2. after she is back from OR and is ready to eat, please restart Levemir 32 units twice a day, previous Novolog coverage before meals and previous Novolog coverage at bedtime; 3. monitor FSGs. will follow. Please call me if there are any questions. Subjective Subjective: She feels okay. Objective Last 24 Hrs of Vital Signs/I&O Vital Signs Date Time Temp Pulse Resp B/P Pulse O2 O2 Flow FiO2 Ox Delivery Rate 03/14 0805 97 Room Air 03/14 0040 98.3 62 20 126/70 93 Room Air 03/14 0000 93 Room Air 03/13 1648 98.0 60 20 132/72 94 Room Air 03/13 1600 94 Room Air 03/13 1600 95 Room Air 03/13 1110 Nasal 2.0L Cannula Intake & Output 03/14 1600 03/14 0800 03/14 0000 Intake Total 0 800 Output Total Balance 0 800 Intake, Oral 0 800 Number 1 Bowel Movements
--- NOTE | 2016-03-14 12:48 | PN- Att Addend ---
Attending Addendum Attending Brief Note Patient seen and examined. Resting comfortably not in acute distress. Unfortunately her surgical goal be done yesterday and has been moved to today. She has no other complaints other than frustration with not having the procedure done yesterday. She offers no respiratory complaints. Her left-sided pleuritic chest pain has improved. The ulcerations of her toes are unchanged. We'll follow-up with the string laster service postprocedure to begin discharge planning.
--- NOTE | 2016-03-14 14:57 | NUR ---
PATIENT OFF FLOOR TO OR VIA STRETCHER WITH DISTRIBUTION; PATIENT HAS BEEN NPO; LAST ACCUCHECK 231 AND PATIENT COVERED PER EMAR; PATIENT HAS NO COMPLAINTS AT THIS TIME; IVF INFUSING PER ORDER THROUGH RUE PICC LINE; CHART, STAMPER, AND CHECKLIST COMPLETED AND SENT WITH PATIENT; OR STAFF MADE AWARE OF ISOLATION STATUS; PATIENT DID RECIEVE SOME MORNING MEDS PER REQUEST OF HER MEDICAL TEAM (JD); AWAITING REPORT AND RETURN OF PATIENT TO FLOOR;
--- NOTE | 2016-03-14 16:44 | Operative Report ---
Operative/Inv Procedure Report Surgery Date: 03/14/16 Name of Procedure: 1 open incision and drainage deep to the fascia with exposure of the flexor and extensor tendon and tendon sheath multiple sites left foot 2 partial second and third ray resections left foot 3 closure of open surgical wound with local random advancement flap 4 excisional debridement Pre-Operative Diagnosis: 1 open necrotic wound left foot 2 osteomyelitis left foot Post-Operative Diagnosis: The same Estimated Blood Loss: less than 50ml Surgeon/Automatic Washer Mechanic: TAY MENDEZ DPM Anesthesia: moderate sedation, block Operative/Procedure Note Note: After obtaining informed consent the patient was brought to the operating room and placed on the operating table in the supine position. The patient isn't securely fastened to the operating table utilizing safety belt. After administration of IV sedation, 10 mL of 0.5% Marcaine plain was infiltrated about the patient's left ankle. The left foot and ankle within scrubbed prepped and draped in the usual aseptic manner. Attention directed to the distal left foot where a large full-thickness chronic was identified. A 15 blade visualized sharply revised skin margins. The dissection was then carried down deep to the fashion with exposure of the extensor and flexor tendon and tendon sheath multiple sites, both proximally and distally. All necrotic nonviable infected tissue sharply evacuated from the wound bed. The dissection and continued proximally to level metatarsal phalangeal joints with the capture structures at the second third joints were released and the digits were disarticulated and passed from the operative field. Specimen sent for microbiologic and pathologic inspection. Nipple was then irrigated with 3 L of normal sterile saline infusion 50,000 units of bacitracin. Following this the foot was redraped and the surgeon's top gloves changed clean gloves. Any bleeding vessels identified were cauterized or ligated as encountered. A plantar flap was then developed with release of the morning ligaments, mobilization and advancement of the tissues. The plantar flap was rotated superiorly and held centrally with 3-0 Vicryl. A dorsal flap was again developed with undermining, mobilization and advancement of the dorsal flap towards the central aspect the wound. This was again held at its deep side with 3-0 Vicryl. Subtenons tissues reports a 4-0 Vicryl skin edges reapproximated 3-0 nylon. The incision was dressed with Xeroform 4 x 4's Kerlix and Lance wrap. The patient was noted to tolerate both procedure and anesthesia well and the patient was transported from the operating room to recovery by sent stable best assess intact to both the dorsal and plantar flaps.
--- NOTE | 2016-03-14 17:03 | PN- Housestaff ---
Subjective Follow-up For: Osteolysis of second and third left toes Subjective: Patient seen and examined this morning. She is scheduled to go for amputation of her left second and third toes, patient nothing by mouth for this procedure. Remains afebrile, vitals within normal limits no other complaints. Review of Systems Constitutional: Denies: chills, fever. Cardiovascular: Denies: chest pain, palpitations. Respiratory: Reports: cough, sputum production. Denies: short of breath. Gastrointestinal: Denies: abdominal pain, constipation, diarrhea, nausea, vomiting. Genitourinary: Denies: dysuria, frequency. Objective Last 24 Hrs of Vital Signs/I&O Vital Signs Date Time Temp Pulse Resp B/P Pulse O2 O2 Flow FiO2 Ox Delivery Rate 03/14 0858 97.7 73 20 140/90 93 Room Air 03/14 0805 97 Room Air 03/14 0040 98.3 62 20 126/70 93 Room Air 03/14 0000 93 Room Air Intake & Output 03/14 1600 03/14 0800 03/14 0000 Intake Total 550 0 800 Output Total Balance 550 0 800 Intake, IV 550 Intake, Oral 0 800 Number 1 1 Bowel Movements Physical Exam General Appearance: Alert, Oriented X3, Cooperative, No Acute Distress Cardiovascular: Regular Rate, Normal S1, Normal S2, No Murmurs Lungs: Clear to Auscultation, Normal Air Movement Abdomen: Normal Bowel Sounds, Soft, No Tenderness Extremities: No Clubbing, No Cyanosis, No Edema Current Medications: Current Medications Sig/Teresita Start time Last Medication Dose Route Stop Time Status Admin Acetaminophen 650 MG Q6P PRN 03/06 1615 AC 03/12 PO 0928 Albuterol Sulfate 3 ML TID 03/14 1000 AC 03/14 INH 1330 Albuterol Sulfate 3 ML EVERY 4 HRS/AWAKE 03/07 0900 DC 03/13 INH 2045 Budesonide/ 2 PUF BID 03/07 1000 AC 03/14 Formoterol Fumarate INH 1008 Dextrose/Sodium 1,000 ML Q20H 03/14 0745 AC 03/14 Chloride IV 0818 Diltiazem HCl 120 MG DAILY 03/06 1603 AC 03/14 PO 1008 Duloxetine HCl 60 MG DAILY 03/06 1603 AC 03/12 PO 0922 Fentanyl Citrate 250 MCG .STK-MED ONE 03/13 1713 DC IM 03/13 1714 Gabapentin 600 MG Q8 03/07 0000 AC 03/14 PO 0613 Guaifenesin 600 MG Q12 03/10 1000 AC 03/13 PO 2011 Hyoscyamine 0.125 MG Q4 HRS NEEDED PRN 03/07 1000 AC 03/09 PO 0433 Insulin Aspart 0 TIDAC/HS 03/13 1700 DC 03/13 SC 2116 Insulin Detemir 20 UNITS 2200 03/13 2200 AC 03/13 SC 2116 Insulin Human Regular 0 Q6 03/14 1200 DC SC Insulin Human Regular 0 Q6 03/14 0745 AC 03/14 SC 1214 Melatonin 5 MG AT BEDTIME PRN 03/13 2015 AC 03/13 PO 2013 Midazolam HCl 2 MG .STK-MED ONE 03/13 1714 DC IM 03/13 1715 Omeprazole 40 MG DAILY AC 03/06 1604 AC 03/14 PO 0613 Oxycodone HCl 5 MG Q6P PRN 03/09 1800 AC 03/14 PO 0614 Prednisone 20 MG DAILY 03/11 1000 AC 03/13 PO 1542 Quetiapine Fumarate 25 MG QPM 03/06 2200 AC 03/13 PO 2010 Rivaroxaban 20 MG DAILY 03/06 1552 AC 03/14 PO 1008 Tiotropium [place] 1 PUF DAILY 03/07 1000 AC 03/14 INH 1008 Trazodone HCl 100 MG QPM 03/06 2200 AC 03/13 PO 2011 Vancomycin HCl 1,500 MG Q12 03/12 2200 AC 03/14 Sodium Chloride 250 ML IV 1008 Assessment/Plan Assessment: 50-year-old woman with PMH significant for A.Fib (on xarelto), COPD, T2DM, HTN, failed outpatient therapy with Levaquin and prednisone prior to admission, chest x-ray showing basilar infiltrate, current admission for severe left sided chest pain initially admitted to telemetry later found to be hypotensive requiring pressors and was transferred to ICU for sepsis. CTA chest negative for PE but showed right lower lobe pneumonia, negative lower extremity Dopplers, x-ray showed possible underlying osteomyelitis, cultures positive for MRSA Plan: Sepsis/pneumonia On vancomycin, DOSE REDUCED TO 1.5GM q12, WILL check a trough level before the fifth Dose. Osteomyelitis Nectrotic ulcers present on distal second third left foot. Foot Xray shows osteolysis of left foot 2nd toe Bone scan suggestive of osteomyelitis Podiatry on board, recommending digital amputation to be done today Type 2 Diabetes Mellitus Endocrine on board, appreciate recommendations Levemir 32 units twice a day, insulin sliding scale Monitor fingersticks Patient to get 20 units of Levemir sushantight, will start back on 32 units twice a day after patient is back from surgery tomorrow. JOSE L Resolved A.Fib * Stable and On xarelto History of COPD * TRC/Nebs DVT Prophylaxis * On xarelto Code status * Full code Problem List: 1. Osteomyelitis Pain Ratin Pain Location: left foot Pain Goal: Remain pain free Pain Plan: Oxycodone Tomorrow's Labs & Rationales: None
[2016-03-14 17:15] VITALS: BP 138/82
--- NOTE | 2016-03-14 18:18 | NUR ---
NURSING NOTE; LATE ENTRY; PT UP TO FLOOR FROM PACU VIA STRETCHER AT 1715. PT VSS, DSG CDI. PT HAS NO COMPLAINTS AT THIS TIME. WILL CONTINUE TO MONITOR.
--- NOTE | 2016-03-14 18:58 | PN- Infect Dx ---
Subjective Subjective: Afebrile on steroids. She continues to have occasional left sided pleuritic chest pain. Objective Last 24 Hrs of Vital Signs/I&O Vital Signs Date Time Temp Pulse Resp B/P Pulse O2 O2 Flow FiO2 Ox Delivery Rate 03/14 1715 98.2 79 18 138/82 94 Room Air 03/14 0858 97.7 73 20 140/90 93 Room Air 03/14 0805 97 Room Air 03/14 0040 98.3 62 20 126/70 93 Room Air 03/14 0000 93 Room Air Intake & Output 03/14 1600 03/14 0800 03/14 0000 Intake Total 550 0 800 Output Total Balance 550 0 800 Intake, IV 550 Intake, Oral 0 800 Number 1 1 Bowel Movements Physical Exam Other Physical Findings: She appears comfortable in no acute distress Lungs are clear Heart regular rhythm with no murmur Extremities left foot dressing intact; PICC in the right upper extremity with no inflammation at the site Results Last 24 Hours of Lab Results: Laboratory Tests 03/13 06 Hematology CBC w Diff NO MAN DIFF REQ WBC (4.8 - 10.8 /CUMM) 14.3 H RBC (4.20 - 5.40 /CUMM) 3.23 L Hgb (12.0 - 16.0 G/DL) 10.7 L Hct (37 - 47 %) 31.7 L MCV (81.0 - 99.0 FL) 97.9 MCH (27.0 - 31.0 PG) 32.9 H RDW (11.5 - 14.5 %) 13.6 Plt Count (130 - 400 /CUMM) 232 MPV (7.4 - 10.4 FL) 9.8 Gran % (42.2 - 75.2 %) 78.6 H Lymphocytes % (20.5 - 51.1 %) 13.6 L Monocytes % (1.7 - 9.3 %) 7.4 Eosinophils % (0 - 5 %) 0.4 Basophils % (0.0 - 2.0 %) 0 L Absolute Granulocytes (1.4 - 6.5 /CUMM) 11.3 H Absolute Lymphocytes (1.2 - 3.4 /CUMM) 2.0 Absolute Monocytes (0.10 - 0.60 /CUMM) 1.1 H Absolute Eosinophils (0.0 - 0.7 /CUMM) 0.1 Absolute Basophils (0.0 - 0.2 /CUMM) 0 PUBS MCHC (33.0 - 37.0 G/DL) 33.7 Last 24 Hours of Chase Results: No recent cultures Assessment/Plan Impression: Stable status post partial second and third ray resections of the left foot earlier today for presumed osteomyelitis. She remains afebrile (on steroids) with a persistent leukocytosis, possibly secondary to the steroids, now Day 7 of Vancomycin for MRSA sepsis, presumably secondary to pneumonia. With her persistent left chest pain and left lower lobe density on chest x-ray, an empyema remains a concern, and may need to reevaluate for this, particularly if her pain and/or leukocytosis persists. Suggestion: 1. Repeat CBC in the a.m. 2. Repeat Vancomycin trough level with her next dose 3. Repeat chest x-ray if her white blood cell count remains elevated, followed by an ultrasound if left pleural effusion persists 4. Continue Vancomycin
[2016-03-14 23:40] VITALS: BP 125/68
[2016-03-15 08:03] VITALS: BP 140/78
--- NOTE | 2016-03-15 08:25 | PN- Diabetes ---
Assessment/Plan Assessment: 50-year-old active smoker lady with past medical history significant for COPD, diabetes type 2 on metformin, hypertension, atrial fibrillation, was in ICU for COPD/pneumonia and hypotension. She was put on prednisone 40 mg twice a day and antibiotics. She was on Levophed drip which was off in the morning on 03/07/2016. Her glucose levels were > 400 and she was on an insulin drip initially. Prednisone was gradually decreased. She is on prednisone 20 mg today. Levemir was increased to 32 units twice a day. Novolog coverage before meals was adjusted multiple time. In addition, she was on Novolog coverage at bedtime. She was diagnosed with active osteomyelitis on left 2nd and 3rd toes and underwent surgery on her left foot on 03/14/2016. Her FSGs were 219, 231, 211, 270 and 399. Plan: 1. increase Levemir to 40 units twice a day; 2. adjust Novolog coverage befoere meals and Novolog coverage at bedtime-- detail see the inpatient DM orders; 3. monitor FSGs. will follow. Inpatient Diabetes Orders Before Each Meal: Bolus Insulin: Novolog < 80 mg/dl: no coverage 80-100 mg/dl: 12 units 101-120 mg/dl: 12 units 121-150 mg/dl: 12 units 151-200 mg/dl: 15 units 201-250 mg/dl: 18 units 251-300 mg/dl: 20 units 301-350 mg/dl: 22 units 351-400 mg/dl: 24 units > 400 mg/dl: 26 units Bedtime: Bolus Insulin: Novolog < 80 mg/dl: no coverage 80-100 mg/dl: no coverage 101-120 mg/dl: no coverage 121-150 mg/dl: no coverage 151-200 mg/dl: no coverage 201-250 mg/dl: no coverage 251-300 mg/dl: 2 units 301-350 mg/dl: 3 units 351-400 mg/dl: 4 units > 400 mg/dl: 5 units Subjective Subjective: She feels okay. Objective Last 24 Hrs of Vital Signs/I&O Vital Signs Date Time Temp Pulse Resp B/P Pulse O2 O2 Flow FiO2 Ox Delivery Rate 03/15 0803 98.1 68 20 140/78 93 Room Air 03/15 0750 94 Room Air 03/14 2340 98.5 76 20 125/68 93 Room Air 03/145 94 Room Air 03/14 1715 98.2 79 18 138/82 94 Room Air 03/14 0858 97.7 73 20 140/90 93 Room Air Intake & Output 03/15 1600 03/15 0800 03/15 0000 Intake Total 250 850 Output Total Balance 250 850 Intake, IV 250 Intake, Oral 250 600
--- NOTE | 2016-03-15 08:54 | PN- Housestaff ---
PETRA RESTREPO,[facility] 03/15/16 0854: Subjective Follow-up For: Osteomyelitus of left second and third toe status post amputation Subjective: Patient seen and examined this morning. She was lying comfortably in bed in no acute distress. She had an amputation of the left second and third toe done yesterday, remains afebrile. White count coming down. No other complaints. Review of Systems Constitutional: Denies: chills, fever. Cardiovascular: Denies: chest pain, palpitations. Respiratory: Reports: cough, sputum production. Denies: short of breath. Gastrointestinal: Denies: abdominal pain, constipation, diarrhea, nausea, vomiting. Genitourinary: Denies: dysuria, frequency. Objective Last 24 Hrs of Vital Signs/I&O Vital Signs Date Time Temp Pulse Resp B/P Pulse O2 O2 Flow FiO2 Ox Delivery Rate 03/15 0803 98.1 68 20 140/78 93 Room Air 03/15 0750 94 Room Air 03/14 2340 98.5 76 20 125/68 93 Room Air 03/14 2045 94 Room Air 03/14 1715 98.2 79 18 138/82 94 Room Air Intake & Output 03/15 1600 03/15 0800 03/15 0000 Intake Total 950 250 850 Output Total Balance 950 250 850 Intake, IV 250 250 Intake, Oral 700 250 600 Number 0 Bowel Movements Physical Exam General Appearance: Alert, Oriented X3, Cooperative, No Acute Distress Cardiovascular: Regular Rate, Normal S1, Normal S2, No Murmurs Lungs: decreased air entry on the left side Abdomen: Normal Bowel Sounds, Soft, No Tenderness Extremities: No Clubbing, No Cyanosis, No Edema, left foot wrapped Current Medications: Current Medications Sig/Teresita Start time Last Medication Dose Route Stop Time Status Admin Acetaminophen 650 MG Q6P PRN 03/06 1615 AC 03/15 PO 0537 Albuterol Sulfate 3 ML TID 03/14 1000 AC 03/15 INH 1342 Budesonide/ 2 PUF BID 03/07 1000 AC 03/15 Formoterol Fumarate INH 1030 Dextrose/Sodium 1,000 ML Q20H 03/14 0745 DC 03/14 Chloride IV 0818 Diltiazem HCl 120 MG DAILY 03/06 1603 AC 03/15 PO 1030 Duloxetine HCl 60 MG DAILY 03/06 1603 AC 03/15 PO 1030 Gabapentin 600 MG Q8 03/07 0000 AC 03/15 PO 1334 Guaifenesin 600 MG Q12 03/10 1000 AC 03/15 PO 1030 Hydromorphone HCl 0.4 MG ONCE ONE 03/14 2114 DC 03/14 IV 03/14 Hyoscyamine 0.125 MG Q4 HRS NEEDED PRN 03/07 1000 AC 03/09 PO 0433 Insulin Aspart 0 TIDAC/HS 03/14 1845 AC 03/15 SC 1245 Insulin Aspart 0 TIDAC/HS 03/14 1800 DC SC Insulin Detemir 40 UNITS BID 03/15 1000 AC 03/15 SC 0840 Insulin Detemir 16 UNITS ONCE ONE 03/14 2230 CAN SC 03/14 223 Insulin Detemir 32 UNITS BID 03/14 223 DC 03/14 SC 223 Insulin Detemir 32 UNITS BID 03/14 220 DC SC Insulin Detemir 20 UNITS 2200 03/13 220 DC 03/13 [place] 211 Insulin Human Regular 0 Q6 03/14 0745 IA 03/14 IL 1214 Melatonin 5 MG AT BEDTIME PRN 03/13 2014 AC 03/13 PO 2013 Morphine Sulfate 2 MG ONCE ONE 03/14 2114 CAN IV 03/14 2115 Omeprazole 40 MG DAILY AC 03/06 1604 AC 03/15 PO 0536 Oxycodone HCl 5 MG Q6P PRN 03/09 1800 AC 03/15 PO 1410 Patient Medication 1 ED .STK-MED ONE 03/15 1338 DC Teaching ED 03/15 1339 Prednisone 20 MG DAILY 03/11 1000 AC 03/15 PO 1030 Quetiapine Fumarate 25 MG QPM 03/06 2200 AC 03/14 PO 2233 Rivaroxaban 20 MG DAILY 03/06 1552 AC 03/15 PO 1030 Tiotropium [place] 1 PUF DAILY 03/07 1000 AC 03/15 INH 1030 Trazodone HCl 100 MG QPM 03/06 2200 AC 03/14 PO 2233 Vancomycin HCl 1,500 MG Q12 03/12 220 AC 03/15 Sodium Chloride 250 ML IV 1030 Last 24 Hrs of Lab/Chase Results Last 24 Hrs of Labs/Mics: Laboratory Tests 03/15/16 0950: CBC w Diff NO MAN DIFF REQ, RBC 3.29 L, MCV 96.4, MCH 31.8 H, RDW 13.7, MPV 9.8, Gran % 80.1 H, Lymphocytes % 14.3 L, Monocytes % 5.2, Eosinophils % 0.2, Basophils % 0.2, Absolute Granulocytes 10.4 H, Absolute Lymphocytes 1.9, Absolute Monocytes 0.7 H, Absolute Eosinophils 0, Absolute Basophils 0, PUBS MCHC 33.0, Vancomycin Trough 21.1 H Assessment/Plan Assessment: 50-year-old woman with PMH significant for A.Fib (on xarelto), COPD, T2DM, HTN, failed outpatient therapy with Levaquin and prednisone prior to admission, chest x-ray showing basilar infiltrate, current admission for severe left sided chest pain initially admitted to telemetry later found to be hypotensive requiring pressors and was transferred to ICU for sepsis. CTA chest negative for PE but showed right lower lobe pneumonia, negative lower extremity Dopplers, x-ray showed possible underlying osteomyelitis, cultures positive for MRSA Plan: Osteomyelitis Status post amputation of second and third left foot toes secondary to osteomyelitis, currently on Vanco, 1.5 g every 12 Vanco trough 21.1 Type 2 Diabetes Mellitus Endocrine on board, appreciate recommendations Levemir 40 units twice a day, insulin sliding scale Monitor fingersticks 219, 231, 211, 270 and 399. JOSE L Resolved A.Fib * Stable and On xarelto History of COPD * TRC/Nebs DVT Prophylaxis * On xarelto Code status * Full code Problem List: 1. Osteomyelitis Pain Ratin Pain Location: left foot Pain Goal: Remain pain free Pain Plan: see A/P Tomorrow's Labs & Rationales: none POOL RESTREPO,VIKTORIYA 03/15/16 1449: Attending MD Review Statement Attending Statement Attending MD Statement: examined this patient, discuss w/resident/PA/DRIVER SERVICE TECHNICIAN, agreed w/resident/PA/DRIVER SERVICE TECHNICIAN, reviewed EMR data (avail), discussed with nursing, discussed with case mgmt, amended to note Attending Assessment/Plan: Patient seen and examined. Resting comfortably and not in any acute distress. Partial second and third ray resections were done yesterday with no report of consultation. She remains afebrile hemodynamically stable. Her white cell count is trending down. Patient offers no new complaints today. Her blood glucose level remains poorly controlled with numbers in the high 300s. Recommendations: -Continue antibiotic regimen. Follow-up with the ID service for duration. -Follow-up with the podiatry service regarding any plans for further surgery. -If there are further plans for surgery patient may be discharged to long term facility tomorrow if okay with podiatry and ID service. -Please follow-up with endocrinology service for her discharge insulin recommendations.
[2016-03-15 10:27] LABS: ABSOLUTE BASOPHIL COUNT 0 /CUMM (0.0-0.2); ABSOLUTE EOSINOPHIL COUNT 0 /CUMM (0.0-0.7); ABSOLUTE GRANULOCYTE CT 10.4 /CUMM (1.4-6.5); ABSOLUTE LYMPH COUNT 1.9 /CUMM (1.2-3.4); ABSOLUTE MONOCYTE COUNT 0.7 /CUMM (0.10-0.60); BASOPHIL % 0.2 % (0.0-2.0); EOSINOPHIL % 0.2 % (0-5); GRANULOCYTE % 80.1 % (42.2-75.2); HEMATOCRIT 31.7 % (37-47); MEAN CORPUSCULAR HGB 31.8 PG (27.0-31.0); MEAN CORPUSCULAR VOLUME 96.4 FL (81.0-99.0); MEAN PLATELET VOLUME 9.8 FL (7.4-10.4); PLATELET COUNT 254 /CUMM (130-400); RBC DISTRIBUTION WIDTH 13.7 % (11.5-14.5); RED BLOOD CELL CT 3.29 /CUMM (4.20-5.40); WHITE BLOOD CELL COUNT 12.9 /CUMM (4.8-10.8)
--- NOTE | 2016-03-15 15:32 | Discharge Summary ---
Visit Information Visit Dates Admission Date: 03/06/16 Discharge Date: 03/16/16 Hospital Course Course Attending Physician: VIKTORIYA LANZA M.D Primary Care Physician: MARICARMEN MONTGOMERY DO Consulting Request: 1 Consulting Specialty: Infectious Disease Consulting Request: 2 Consulting Specialty: Podiatry Hospital Course: Patient is a 50 YO F with PMH significant for A.Fib (on xarelto), COPD, T2DM, HTN came to the ER with chest pain radiating to the left arm and shortness of breath. She failed antimicrobial therapy with levofloxacin & steroid therapy as an outpatient. On examination she is also found to have a wound on her left foot. Doppler was negative for DVT, CTA negative for PE but shows RLL and DEBBI pneumonia. 1. Sepsis Initially she was admitted to telemtry and subsequently found to be profoundly hypotensive after 4L of fluids and transfered to the intensive care unit for pressors/central line placement and started on levophed. Her BP normalized and she was gradually tapered off the drip. She was first started on IV ceftriaxone and Azithromycin for multilobar pneumonia which was eventually changed to IV vancomycin when blood cultures came back positive for Gram +ve cocci. Blood cultures later confirmed as MSSA but she was continued on IV vancomycin due to a history of MRSA. 2. Multilobar pneumonia CT angio showed DEBBI and RLL pneumonia. She is on IV vancomycin. Chest Xray and US show persistent moderate Pleural effusion but not amenable to draining per the interventional radiaolgist. She contimues to complain of pleuritic chest pain that is likely musculoskeletal or due to the pneumonia or effusion. She will need to follow up with her lieutenant general for continued monitoring. 3. Osteomyelitis Nectrotic ulcers present on distal second third left foot following trauma in the setting of diabetic neuropathy. Foot Xray shows osteomyelitis of left foot 2nd toe, confirmed by a 3 phase bone scan. MRI could not be done because patient has an IVF filter in plcase which could not be confirmed as MRI compatible despite tremendous effort in getting records from [facility] and contacting the surgeon who placed the filter. She is s/p partial amputation of the 2nd and 3rd left toes and will complete a course of 4 week of IV vancomycin via a PICC line. 4. Type 2 Diabetes Mellitus She has poorly controlled diabetes. She initially required insulin drip and is currently on levemir and Novolg SS. Her HbA1C level is 11.7. She will need Endocrine followup and should be on a diabetic diet. Discontinue Metformin. 5. JOSE L MNow resolved. After CT angio, her creatinine incresed to 1.8 likely as a result of contrast induced nephropathy. She was placed on fluids and her creatinine normalized. 6. A.Fib Stable and On xarelto and diltiazem 7. History of COPD Continue her home medications-symbicort, Spiriva and Nebs. She will be discharged on a prednisone taper. Complications: none Allergies: Coded Allergies: morphine (Severe, MAKES HER CRAZY 03/06/16) Significant Procedures: Partial second and third ray resections left foot, excisional debridement Pertinent Lab Results: Laboratory Tests 03/16/16 0634: CBC w Diff NO MAN DIFF REQ, RBC 3.08 L, MCV 99.3 H, MCH 33.5 H, RDW 13.8, MPV 9.8, Gran % 77.1 H, Lymphocytes % 16.5 L, Monocytes % 5.5, Eosinophils % 0.5, Basophils % 0.4, Absolute Granulocytes 9.5 H, Absolute Lymphocytes 2.0, Absolute Monocytes 0.7 H, Absolute Eosinophils 0.1, Absolute Basophils 0, PUBS MCHC 33.8 03/15/16 0950: CBC w Diff NO MAN DIFF REQ, RBC 3.29 L, MCV 96.4, MCH 31.8 H, RDW 13.7, MPV 9.8, Gran % 80.1 H, Lymphocytes % 14.3 L, Monocytes % 5.2, Eosinophils % 0.2, Basophils % 0.2, Absolute Granulocytes 10.4 H, Absolute Lymphocytes 1.9, Absolute Monocytes 0.7 H, Absolute Eosinophils 0, Absolute Basophils 0, PUBS MCHC 33.0, Vancomycin Trough 21.1 H SERVICE DATE: 03/10/16 EXAM TYPE: NUC - BONE SCAN THREE PHASE EXAMINATION: NM BONE SCAN 3 PHASE CLINICAL INFORMATION: Necrotic ulcers in the second and third toes of the left foot. Suspected osteomyelitis. COMPARISON: No previous bone scan is available for comparison. Radiographs of the left foot dated 03/06/2015 are available for comparison. TECHNIQUE: Initial rapid sequence images were obtained over the feet during the bolus injection of 53.0 mCi Tc-99m HDP. Static images of the pelvis to the feet were then obtained 3.5 hours post injection. FINDINGS: Initial rapid sequence images show markedly increased flow to the distal aspect of the left foot involving the region of the distal left second and third digits. There is in addition a mild diffuse increase in flow to the left foot compared to the right. No additional focal abnormalities are present on the flow images in either foot. The blood pool images obtained immediately following the flow study show moderately increased blood pool activity in the distal aspect of the second and third digits of the left foot. There are also small mild foci of increased blood pool activity visualized in the distal metatarsal bones of the third and fourth digits of the right foot. The delayed static images show moderately intense abnormally increased activity in the distal aspects of the second and third digits of the left foot, with the abnormality in the second digit significantly more intense in the third digit. No other abnormalities are present in the left foot. In the right foot there is an intense focus of increased activity present in the distal aspect of the fifth digit. There are additional foci of mildly increased activity in the distal third and fourth metatarsal bones of the right foot, in the right first metatarsophalangeal joint region and in the region of the proximal interphalangeal joint of the second digit of the right foot. An additional focus of increased activity is present in the proximal right foot in the calcaneocuboid region. This focus is difficult to localize and may be entirely within the cuboid bone. In the other visualized bones there is a faint linear focus across the distal shaft at approximately junction of the middle and distal thirds of the right femur and there is a mild diffuse increase in activity in both knees, most prominently in the right patellar compartment. IMPRESSION: 1. Very prominent abnormalities in all 3 phases involving the distal aspect of the second and third digits of the left foot, most consistent with active osteomyelitis. 2. Additional mild abnormalities are are present in discrete foci in the distal aspects of the right third and fourth metatarsal bones, without definite flow abnormality but mild abnormality on the blood pool images which may represent early static uptake. These are nonspecific but because of the absence of flow abnormalities are probably due to helically traumatic or stress fractures. Healing osteomyelitis would be an additional possible explanation. 3. A very intense abnormality in the fifth digit of the right foot is noted, with no associated flow or blood pool abnormality. This is most likely due to a recent fracture. Correlation with radiographs of this is recommended for initial follow-up. 4. Additional mild abnormalities in the right first metatarsophalangeal joint and in the region of the right second proximal interphalangeal joint are nonspecific but most likely arthritic or traumatic in etiology. 5. A moderately intense abnormality on the delayed images only is visualized in the proximal right foot, and is likely in the cuboid bone. There is no associated flow or blood pool abnormality with this lesion and this is nonspecific and may be due to infection, trauma, or an arthritic lesion. Aseptic necrosis could also be responsible for this nonspecific finding. ECHO Normal size left ventricle. Left ventricular wall thickness at upper limits of normal. Normal left ventricular ejection fraction visually estimated at >65 %. Normal left ventricular diastolic filling pattern for age. Disposition Summary Disposition Principal Diagnosis: Sepsis, Acute hypoxic respiratory failure secondary to pneumonia, Osteomylitis of the Left 2nd and 3rd toes s/p partial amputation Additional Diagnosis: Type 2 DM, JOSE L, Atrial Fibrillilation Discharge Disposition: STR Discharge Instructions General Discharge Information Code Status: Full Code Patient's Diet: Diabetic Patient's Activity: As tolerated, PT Follow-Up Instructions/Appts: Please follow up with your PCP in 1 week Please follow up with wound care in 1 week Medications at Discharge Discharge Medications: Stop taking the following medications: Prednisone (Prednisone) 20 MG TABLET ORAL DAILY Qty = 11 Levofloxacin (Levofloxacin) 500 MG TABLET ORAL DAILY Qty = 7 Metformin HCl (Metformin HCl) 1,000 MG TABLET ORAL TWICE DAILY Qty = 180 Continue taking these medications: Tiotropium [place] (Spiriva) 18 MCG CAP.W.DEV 1 Capsule Inhale through mouth DAILY Qty = 90 Comments: Last Taken:03/16/16 Time:09 Albuterol Sulfate (Proventil Hfa) 90 MCG HFA.AER.AD 2 Puff Inhale through mouth 4 TIMES A DAY as needed for BREATHING Qty = 13 Trazodone HCl (Trazodone HCl) 50 MG TABLET 2 Tablet ORAL Every night Qty = 60 Comments: Last Taken:03/15/16 Time:220 Duloxetine HCl (Duloxetine HCl) 60 MG CAPSULE.DR 1 Capsule ORAL DAILY Qty = 30 Comments: Last Taken:03/16/16 Time:09 Quetiapine Fumarate (Quetiapine Fumarate) 25 MG TABLET 1 Tablet ORAL Every night Qty = 30 Comments: Last Taken:03/15/16 Time:2158 Budesonide/Formoterol Fumarate (Symbicort 160-4.5 Mcg Inhaler) 160 MCG-4.5 MCG/ ACTUATION HFA.AER.AD 2 Puff Inhale through mouth TWICE DAILY Qty = 10 Comments: Last Taken:03/16/16 Time:09 Gabapentin (Gabapentin) 300 MG CAPSULE 2 Capsule ORAL THREE TIMES DAILY Qty = 180 Comments: Last Taken:03/16/16 Time:1415 Diltiazem HCl (Cartia Xt) 120 MG CAP.ER.24H 1 Capsule ORAL DAILY Qty = 90 Comments: Last Taken:03/16/16 Time:09 Esomeprazole (Nexium) 40 MG CAPSULE.DR 1 Capsule ORAL DAILY Qty = 90 Comments: Last Taken:03/16/16 Time:06 OMEPRAZOLE 40 MG GIVEN. Rivaroxaban (Xarelto) 20 MG TABLET 1 Tablet ORAL DAILY Qty = 90 Instructions: with food Comments: Last Taken:03/16/16 Time:09 Losartan/Hydrochlorothiazide (Losartan-Hctz 100-25 MG Tab) 100 MG-25 MG TABLET 1 Tablet ORAL DAILY Qty = 90 Start taking the following new medications: Prednisone (Prednisone) 10 MG TABLET 10 Milligram ORAL DAILY Qty = 2 No Refills Instructions: take one pill daily for two days and then stop Insulin Detemir (Levemir) 100 UNIT/ML VIAL 46 Units Inject into fatty tissue TWICE DAILY Days = 30 No Refills Insulin Aspart (Novolog) 100 UNIT/ML VIAL 0 Units Inject into fatty tissue BEFORE MEALS AND AT BEDTIME Days = 30 No Refills Vancomycin HCl/D5w (Vancomycin-D5w 1.25 Gram/250ML) 1.25 GRAM/250 ML PLAST..BAG 1 VIAL INTRAVEN EVERY 12 HOURS Days = 20 No Refills Copies To: MARICARMEN MONTGOMERY DO Attending Review Statement Documenting Attending: VIKTORIYA LANZA M.D Other Findings: I have reviewed the discharge summary.
[2016-03-15 16:13] VITALS: BP 120/80
--- NOTE | 2016-03-15 16:44 | PN- Infect Dx ---
Subjective Subjective: Afebrile on steroids. She feels improved with decreased left chest pain. Objective Last 24 Hrs of Vital Signs/I&O Vital Signs Date Time Temp Pulse Resp B/P Pulse O2 O2 Flow FiO2 Ox Delivery Rate 03/15 1613 98.3 80 20 120/80 93 Room Air 03/15 0803 98.1 68 20 140/78 93 Room Air 03/15 0750 94 Room Air 03/14 2340 98.5 76 20 125/68 93 Room Air 03/14 2045 94 Room Air 03/14 1715 98.2 79 18 138/82 94 Room Air Intake & Output 03/15 1600 03/15 0800 03/15 0000 Intake Total 950 250 850 Output Total Balance 950 250 850 Intake, IV 250 250 Intake, Oral 700 250 600 Number 0 Bowel Movements Physical Exam Other Physical Findings: She appears comfortable in no acute distress Lungs mild bilateral inspiratory wheezes Heart regular rhythm with no murmur Extremities dressing intact over the left foot; PICC in the right upper extremity with no inflammation at the site Results Last 24 Hours of Lab Results: Laboratory Tests 03/15 0950 Hematology CBC w Diff NO MAN DIFF REQ WBC (4.8 - 10.8 /CUMM) 12.9 H RBC (4.20 - 5.40 /CUMM) 3.29 L Hgb (12.0 - 16.0 G/DL) 10.5 L Hct (37 - 47 %) 31.7 L MCV (81.0 - 99.0 FL) 96.4 MCH (27.0 - 31.0 PG) 31.8 H RDW (11.5 - 14.5 %) 13.7 Plt Count (130 - 400 /CUMM) 254 MPV (7.4 - 10.4 FL) 9.8 Gran % (42.2 - 75.2 %) 80.1 H Lymphocytes % (20.5 - 51.1 %) 14.3 L Monocytes % (1.7 - 9.3 %) 5.2 Eosinophils % (0 - 5 %) 0.2 Basophils % (0.0 - 2.0 %) 0.2 Absolute Granulocytes (1.4 - 6.5 /CUMM) 10.4 H Absolute Lymphocytes (1.2 - 3.4 /CUMM) 1.9 Absolute Monocytes (0.10 - 0.60 /CUMM) 0.7 H Absolute Eosinophils (0.0 - 0.7 /CUMM) 0 Absolute Basophils (0.0 - 0.2 /CUMM) 0 PUBS MCHC (33.0 - 37.0 G/DL) 33.0 Toxicology Vancomycin Trough (10.0 - 20.0 ug/mL) 21.1 H Last 24 Hours of Chase Results: No recent cultures Assessment/Plan Impression: Stable status post partial second and third ray resections of the left foot yesterday for presumed osteomyelitis, with no residual osteomyelitis felt to be present per discussion with Podiatry. She remains afebrile (on steroids) with white blood cell count mildly elevated, likely still secondary to the steroids, now Day 8 of Vancomycin for MRSA sepsis, presumably secondary to pneumonia. Her Vancomycin trough level remains high despite decreasing her dose. Suggestion: 1. Would continue to taper steroids 2. Repeat chest x-ray 3. Decrease Vancomycin to 1.25 grams IV every 12 hours to complete a four-week course of treatment (until April 04) 4. Will need a weekly CBC, BUN/creatinine and Vancomycin trough level
--- NOTE | 2016-03-15 22:51 | RADIOLOGY REPORT ---
EXAMINATION: XR PORTABLE CHEST CLINICAL INFORMATION: Pneumonia. Leukocytosis. COMPARISON: Chest x-ray 03/10/2016. CT of chest 03/06/2016. TECHNIQUE: Portable view of the chest was obtained. 9:44 PM FINDINGS: Persistent dense left lung base unchanged significantly since prior studies. Right lung remains clear. No pulmonary vascular congestion. IMPRESSION: Persistent dense consolidation at left lung base.
[2016-03-15 23:44] VITALS: BP 152/82
--- NOTE | 2016-03-16 07:24 | PN- Housestaff ---
PETRA RESTREPO,[facility] 03/16/16 0723: Subjective Follow-up For: Osteomyelitus of left second and third toe status post amputation Subjective: Patient seen and examined this morning. She was lying comfortably in bed in no acute distress. S/p amputation of the left second and third toe D#2, remains afebrile. White count coming down. No other complaints. Review of Systems Constitutional: Denies: chills, fever. Cardiovascular: Denies: chest pain, orthopena, palpitations. Respiratory: Reports: cough, sputum production. Denies: short of breath. Gastrointestinal: Denies: abdominal pain, constipation, diarrhea, nausea, vomiting. Genitourinary: Denies: dysuria, frequency. Objective Last 24 Hrs of Vital Signs/I&O Vital Signs Date Time Temp Pulse Resp B/P Pulse O2 O2 Flow FiO2 Ox Delivery Rate 03/16 0813 98 Room Air Room Air 03/16 0749 98.1 94 20 124/71 94 Room Air 03/15 2344 98.1 75 19 152/82 93 Room Air Intake & Output 03/16 1600 03/16 0800 03/16 0000 Intake Total 1050 360 510 Output Total Balance 1050 360 510 Intake, IV 250 10 Intake, Oral 800 360 500 Number 0 Bowel Movements Physical Exam General Appearance: Alert, Oriented X3, Cooperative, No Acute Distress Cardiovascular: Regular Rate, Normal S1, Normal S2, No Murmurs Lungs: Clear to Auscultation, Normal Air Movement Abdomen: Normal Bowel Sounds, Soft, No Tenderness Extremities: No Clubbing, No Cyanosis, No Edema, left foot wrapped Current Medications: Current Medications Sig/Teresita Start time Last Medication Dose Route Stop Time Status Admin Acetaminophen 650 MG .STK-MED ONE 03/15 1906 DC PO 03/15 190 Acetaminophen 650 MG Q6P PRN 03/06 1615 DCD 03/15 PO 1911 Albuterol Sulfate 3 ML TID 03/14 1000 DCD 03/16 INH 1407 Budesonide/ 2 PUF BID 03/07 1000 DCD 03/16 Formoterol Fumarate INH 0910 Diltiazem HCl 120 MG DAILY 03/06 1603 DCD 03/16 PO 0910 Duloxetine HCl 60 MG DAILY 03/06 1603 DCD 03/16 PO 0910 Gabapentin 600 MG Q8 03/07 0000 DCD 03/16 PO 1415 Guaifenesin 600 MG Q12 03/10 1000 DCD 03/16 PO 0910 Hyoscyamine 0.125 MG Q4 HRS NEEDED PRN 03/07 1000 DCD 03/09 PO 0433 Insulin Aspart 0 TIDAC/HS 03/14 1845 DCD 03/16 SC 1221 Insulin Detemir 46 UNITS BID 03/16 1000 DCD 03/16 SC 0909 Insulin Detemir 40 UNITS BID 03/15 1000 DC 03/15 SC 2202 Melatonin 5 MG AT BEDTIME PRN 03/13 2014 DCD 03/13 PO 2013 Omeprazole 40 MG DAILY AC 03/06 1604 DCD 03/16 PO 0629 Oxycodone HCl 5 MG Q6P PRN 03/09 1800 DCD 03/16 PO 1326 Prednisone 10 MG DAILY 03/16 1000 DCD 03/16 PO 0910 Prednisone 20 MG DAILY 03/11 1000 DC 03/15 PO 1030 Quetiapine Fumarate 25 MG QPM 03/06 2200 DCD 03/15 PO 2159 Rivaroxaban 20 MG DAILY 03/06 1552 DCD 03/16 PO 0909 Tiotropium [place] 1 PUF DAILY 03/07 1000 DCD 03/16 INH 0909 Trazodone HCl 100 MG QPM 03/06 2200 DCD 03/15 PO 2159 Vancomycin HCl 1,250 MG Q12 03/15 2200 DCD 03/16 Sodium Chloride 250 ML IV 1207 Vancomycin HCl 1,500 MG Q12 03/12 2200 DC 03/15 Sodium Chloride 250 ML IV 1030 Last 24 Hrs of Lab/Chase Results Last 24 Hrs of Labs/Mics: Laboratory Tests 03/16/16 0634: CBC w Diff NO MAN DIFF REQ, RBC 3.08 L, MCV 99.3 H, MCH 33.5 H, RDW 13.8, MPV 9.8, Gran % 77.1 H, Lymphocytes % 16.5 L, Monocytes % 5.5, Eosinophils % 0.5, Basophils % 0.4, Absolute Granulocytes 9.5 H, Absolute Lymphocytes 2.0, Absolute Monocytes 0.7 H, Absolute Eosinophils 0.1, Absolute Basophils 0, PUBS MCHC 33.8 Assessment/Plan Assessment: 50-year-old woman with PMH significant for A.Fib (on xarelto), COPD, T2DM, HTN, failed outpatient therapy with Levaquin and prednisone prior to admission, chest x-ray showing basilar infiltrate, current admission for severe left sided chest pain initially admitted to telemetry later found to be hypotensive requiring pressors and was transferred to ICU for sepsis. CTA chest negative for PE but showed right lower lobe pneumonia, negative lower extremity Dopplers, x-ray showed possible underlying osteomyelitis, cultures positive for MRSA Plan: Osteomyelitis Status post amputation of second and third left foot toes secondary to osteomyelitis, currently on Vanco,reduced to 1.25 g every 12 Vanco trough 21.1, patient to continue vancomycin until april 04 complete four-week course. She will f/u with for wound dressing. Type 2 Diabetes Mellitus Endocrine on board, appreciate recommendations Levemir 46 units twice a day, insulin sliding scale Monitor fingersticks 399, 252, 349, 358 and 329. JOSE L Resolved A.Fib * Stable and On xarelto History of COPD * TRC/Nebs DVT Prophylaxis * On xarelto Code status * Full code Problem List: 1. Diabetes 2. Osteomyelitis Pain Ratin Pain Location: left foot Pain Goal: Remain pain free Pain Plan: Roxicodone Tomorrow's Labs & Rationales: none pt to be d/c Discharge Plan Discharge Disposition: STR/NH Stable for Discharge? Yes Anticipated Discharge (Day): today If Discharged Today/In 24 Hrs: W-10/discharge paper done, DC summary done, CMR done IGNACIO FOWLER 04/19/16 1249: Attending Review Statement Attending Statement Attending MD Statement: examined this patient, discuss w/resident/PA/BRIDGE BUILDER, agreed w/resident/PA/BRIDGE BUILDER, reviewed EMR data (avail), discussed with nursing Attending Assessment/Plan: Patient seen and examined on bedside with the resident team. Patient is being discharged to subacute rehabilitation today and will continue on IV vancomycin until April 04. Patient will follow-up with podiatry as an outpatient. Patient had a repeat chest x-ray done today which showed [id number] pleural effusion which was confirmed with an ultrasound of the chest. Discussed with infectious disease the discharge plan and they are okay with patient being discharged today. For her COPD she is being discharged on steroid taper. Discussed with patient the care plan. Encouraged patient to control her diabetes better.
--- NOTE | 2016-03-16 07:39 | Patient Discharge Instructions ---
Discharge Instructions General Discharge Information You were seen/treated for: sepsis secondary to Multilobar Pneumonia OsteomyelitisOsteomyelitis of left 2nd and 3rd toe Acute kidney injury Diabetes Mellitus You had these procedures: 1 open incision and drainage deep to the fascia with exposure of the flexor and extensor tendon and tendon sheath multiple sites left foot 2 partial second and third ray resections left foot 3 closure of open surgical wound with local random advancement flap 4 excisional debridement Special Instructions: Continue Vancomycin 1.25 grams IV every 12 hours to complete a four-week course of treatment (until April 04) You will need a weekly CBC, BUN/creatinine and Vancomycin trough level, scripts provided. Please schedule a follow up appointment with your primary care physician, rougher operator() sales property manager and band splitter in one week. Refferals provided. Diet Continue normal diet: Yes Recommended Diet: Diabetic Activity Activity Self Limited: Yes Acute Coronary Syndrome Inclusion Criteria At DC or during hospital stay patient has or had the following: ACS DIAGNOSIS No Discharge Core Measures Meds if any: Prescribed or Continued at Discharge Meds if any: NOT Prescribed or Continued at Discharge Congestive Heart Failure Inclusion Criteria At DC or during hospital stay patient has or had the following: CHF DIAGNOSIS No Discharge Core Measures Meds if any: Prescribed or Continued at Discharge Meds if any: NOT Prescribed or Continued at Discharge Cerebrovascular accident Inclusion Criteria At DC or during hospital stay patient has or had the following: CVA/TIA Diagnosis No Discharge Core Measures Meds if any: Prescribed or Continued at Discharge Meds if any: NOT Prescribed or Continued at Discharge Venous thromboembolism Inclusion Criteria VTE Diagnosis No VTE Type NONE VTE Confirmed by (Test) NONE Discharge Core Measures - Per Current guidelines, there needs to be overlap - treatment for the first 5 days of Warfarin therapy. - If discharged on Warfarin prior to 5 days of - overlap therapy, the patient will need to be - assessed for post discharge needs including - *Post discharge parental anticoagulation - *Warfarin and/or parental anticoagulation education - *Follow up date to check INR post discharge At least 5 days overlap therapy as Inpatient No Meds if any: Prescribed or Continued at Discharge Note: Overlap Therapy is Warfarin and Anticoagulant Meds if any: NOT Prescribed or Continued at Discharge
[2016-03-16 07:41] LABS: ABSOLUTE BASOPHIL COUNT 0 /CUMM (0.0-0.2); ABSOLUTE EOSINOPHIL COUNT 0.1 /CUMM (0.0-0.7); ABSOLUTE GRANULOCYTE CT 9.5 /CUMM (1.4-6.5); ABSOLUTE MONOCYTE COUNT 0.7 /CUMM (0.10-0.60); BASOPHIL % 0.4 % (0.0-2.0); EOSINOPHIL % 0.5 % (0-5); GRANULOCYTE % 77.1 % (42.2-75.2); HEMATOCRIT 30.6 % (37-47); MEAN CORPUSCULAR HGB 33.5 PG (27.0-31.0); MEAN CORPUSCULAR HGB CONC 33.8 G/DL (33.0-37.0); MEAN CORPUSCULAR VOLUME 99.3 FL (81.0-99.0); MEAN PLATELET VOLUME 9.8 FL (7.4-10.4); PLATELET COUNT 247 /CUMM (130-400); RBC DISTRIBUTION WIDTH 13.8 % (11.5-14.5); RED BLOOD CELL CT 3.08 /CUMM (4.20-5.40); WHITE BLOOD CELL COUNT 12.3 /CUMM (4.8-10.8)
[2016-03-16 07:49] VITALS: BP 124/71
[2016-03-16] MEDS ORDERED: VANCOMYCIN1.25 GM/25 IV (08:06)
[2016-03-16] MEDS ORDERED: PREDNISONE10 M2 PO (08:06)
--- NOTE | 2016-03-16 08:21 | PN- Diabetes ---
Assessment/Plan Assessment: 50-year-old active smoker lady with past medical history significant for COPD, diabetes type 2 on metformin, hypertension, atrial fibrillation, was in ICU for COPD/pneumonia and hypotension. She was put on prednisone 40 mg twice a day and antibiotics. She was on Levophed drip which was off in the morning on 03/07/2016. Her glucose levels were > 400 and she was on an insulin drip initially. Prednisone was gradually decreased. She is on prednisone 10 mg today. Levemir was increased to 40 units twice a day. Novolog coverage before meals was adjusted multiple times. In addition, she was on Novolog coverage at bedtime. She was diagnosed with active osteomyelitis on left 2nd and 3rd toes and underwent surgery on her left foot on 03/14/2016. As per patient, she hasn't been great on her diet. Her FSGs were 399, 252, 349, 358 and 329. Plan: 1. increase Levemir to 46 units twice a day; 2. increase Novolog coverage before meals--detail see the inpatient DM order; 3. continue the current Novolog coverage at bedtime; 4. monitor FSGs. will follow Inpatient Diabetes Orders Before Each Meal: Bolus Insulin: Novolog < 80 mg/dl: no coverage 80-100 mg/dl: 14 units 101-120 mg/dl: 14 units 121-150 mg/dl: 14 units 151-200 mg/dl: 17 units 201-250 mg/dl: 20 units 251-300 mg/dl: 23 units 301-350 mg/dl: 25 units 351-400 mg/dl: 27 units > 400 mg/dl: 29 units Subjective Subjective: Her glucose level has been in the 300s. Objective Last 24 Hrs of Vital Signs/I&O Vital Signs Date Time Temp Pulse Resp B/P Pulse O2 O2 Flow FiO2 Ox Delivery Rate 03/16 0813 98 Room Air Room Air 03/16 0749 98.1 94 20 124/71 94 Room Air 03/15 2344 98.1 75 19 152/82 93 Room Air 03/15 1613 98.3 80 20 120/80 93 Room Air Intake & Output 03/16 1600 03/16 0800 03/16 0000 Intake Total 360 510 Output Total Balance 360 510 Intake, IV 10 Intake, Oral 360 500 Findings Pertinent Lab/Chase Results: Laboratory Tests 03/16 03/15 0634 0950 Hematology CBC w Diff NO MAN DIFF REQ NO MAN DIFF REQ WBC (4.8 - 10.8 /CUMM) 12.3 H 12.9 H RBC (4.20 - 5.40 /CUMM) 3.08 L 3.29 L Hgb (12.0 - 16.0 G/DL) 10.3 L 10.5 L Hct (37 - 47 %) 30.6 L 31.7 L MCV (81.0 - 99.0 FL) 99.3 H 96.4 MCH (27.0 - 31.0 PG) 33.5 H 31.8 H RDW (11.5 - 14.5 %) 13.8 13.7 Plt Count (130 - 400 /CUMM) 247 254 MPV (7.4 - 10.4 FL) 9.8 9.8 Gran % (42.2 - 75.2 %) 77.1 H 80.1 H Lymphocytes % (20.5 - 51.1 %) 16.5 L 14.3 L Monocytes % (1.7 - 9.3 %) 5.5 5.2 Eosinophils % (0 - 5 %) 0.5 0.2 Basophils % (0.0 - 2.0 %) 0.4 0.2 Absolute Granulocytes (1.4 - 6.5 /CUMM) 9.5 H 10.4 H Absolute Lymphocytes (1.2 - 3.4 /CUMM) 2.0 1.9 Absolute Monocytes (0.10 - 0.60 /CUMM) 0.7 H 0.7 H Absolute Eosinophils (0.0 - 0.7 /CUMM) 0.1 0 Absolute Basophils (0.0 - 0.2 /CUMM) 0 0 PUBS MCHC (33.0 - 37.0 G/DL) 33.8 33.0 Toxicology Vancomycin Trough (10.0 - 20.0 ug/mL) 21.1 H
[2016-03-16] MEDS ORDERED: NOVOLOG100 UNIT/2 SC (09:14)
[2016-03-16] MEDS ORDERED: LEVEMIR100 UNIT/1 SC (09:14)
--- NOTE | 2016-03-16 11:27 | PN- Infect Dx ---
Subjective Subjective: Afebrile on steroids. She feels improved, though still notes occasional left chest pain and cough. She denies shortness of breath. She does note mild left foot pain. Objective Last 24 Hrs of Vital Signs/I&O Vital Signs Date Time Temp Pulse Resp B/P Pulse O2 O2 Flow FiO2 Ox Delivery Rate 03/16 0813 98 Room Air Room Air 03/16 0749 98.1 94 20 124/71 94 Room Air 03/15 2344 98.1 75 19 152/82 93 Room Air 03/15 1613 98.3 80 20 120/80 93 Room Air Intake & Output 03/16 1600 03/16 0800 03/16 0000 Intake Total 360 510 Output Total Balance 360 510 Intake, IV 10 Intake, Oral 360 500 Physical Exam Other Physical Findings: She appears comfortable in no acute distress Lungs are mostly clear with occasional inspiratory wheezes Heart regular rhythm with no murmur Extremities left foot dressing intact Results Last 24 Hours of Lab Results: Laboratory Tests 03/16 0634 Hematology CBC w Diff NO MAN DIFF REQ WBC (4.8 - 10.8 /CUMM) 12.3 H RBC (4.20 - 5.40 /CUMM) 3.08 L Hgb (12.0 - 16.0 G/DL) 10.3 L Hct (37 - 47 %) 30.6 L MCV (81.0 - 99.0 FL) 99.3 H MCH (27.0 - 31.0 PG) 33.5 H RDW (11.5 - 14.5 %) 13.8 Plt Count (130 - 400 /CUMM) 247 MPV (7.4 - 10.4 FL) 9.8 Gran % (42.2 - 75.2 %) 77.1 H Lymphocytes % (20.5 - 51.1 %) 16.5 L Monocytes % (1.7 - 9.3 %) 5.5 Eosinophils % (0 - 5 %) 0.5 Basophils % (0.0 - 2.0 %) 0.4 Absolute Granulocytes (1.4 - 6.5 /CUMM) 9.5 H Absolute Lymphocytes (1.2 - 3.4 /CUMM) 2.0 Absolute Monocytes (0.10 - 0.60 /CUMM) 0.7 H Absolute Eosinophils (0.0 - 0.7 /CUMM) 0.1 Absolute Basophils (0.0 - 0.2 /CUMM) 0 PUBS MCHC (33.0 - 37.0 G/DL) 33.8 Last 24 Hours of Chase Results: No recent cultures Recent Imaging Studies: Chest x-ray March 15 persistent dense consolidation at the left lung base Assessment/Plan Impression: Overall improved with temperatures remaining normal (on steroids) with mild leukocytosis, which continues to decrease with the steroid taper, now Day 9 of Vancomycin for MRSA sepsis, presumably secondary to the pneumonia. She continues to report left pleuritic chest pain and cough and chest x-ray continues to reveal a dense consolidation at the left lung base, which still raises the possibility of an empyema. She is status post partial second and third ray resections of the left foot 2 days ago for presumed osteomyelitis, with no residual osteomyelitis felt to be present per Podiatry. Suggestion: 1. Would repeat ultrasound of the left chest to evaluate left pleural effusion 2. Would continue to taper steroids 3. Continue Vancomycin to complete a four-week course of treatment (until April 04) 4. Will need a weekly CBC, BUN/creatinine and Vancomycin trough level
[2016-03-16] MEDS ORDERED: LOSARTAN-HCTZ1 EAC2 PO (11:40)
--- NOTE | 2016-03-16 12:31 | ULTRASOUND REPORT ---
EXAMINATION: US PLEURAL EFFUSION CLINICAL INFORMATION: This is a 50-year-old female with persistent left lung consolidation on chest x-ray. Left-sided chest and back pain. COMPARISON: Comparison is made to a chest x-ray dated 03/15/2016. Comparison is made to an ultrasound of the chest dated 03/08/2016. TECHNIQUE: Ultrasound of the chest was performed bilaterally. FINDINGS: No significant pleural effusion is seen on the right side. There is a small-moderate left pleural effusion present. There is likely some pulmonary consolidation adjacent to the pleural effusion. IMPRESSION: There is a small-moderate left pleural effusion.
--- NOTE | 2016-03-16 17:23 | PN- Att Addend ---
Attending Addendum Attending Brief Note Patient seen and examined on bedside with the resident team. Patient is being discharged to subacute rehabilitation today and will continue on IV vancomycin until April 04. Patient will follow-up with podiatry as an outpatient. Patient had a repeat chest x-ray done today which showed [id number] pleural effusion which was confirmed with an ultrasound of the chest. Discussed with infectious disease the discharge plan and they are okay with patient being discharged today. For her COPD she is being discharged on steroid taper. Discussed with patient the care plan. Encouragement for patient to control her diabetes better.
== END 2016-03-16 16:20 | DRG 710 ==
LOC: ERH 12:12 → 2NB 14:11 → CRI 14:11 → ERHI 14:11 → 2NB 14:11 → CRI 03-07 03:18 → 2NB 03-08 17:02
PROVIDERS: Emergency Medicine; Internal Medicine; Student in an Organized Health Care Education/Training Program; ADMIT Internal Medicine
PROC: 0J9R0ZZ Drainage of Left Foot Subcutaneous Tissue and Fascia, Open Approach (ICD-10-PCS; principal; 2016-03-14)
PROC: 0Y6S0Z0 Detachment at Left 2nd Toe, Complete, Open Approach (ICD-10-PCS; 2016-03-14)
PROC: 0Y6U0Z0 Detachment at Left 3rd Toe, Complete, Open Approach (ICD-10-PCS; 2016-03-14)
PROC: 0HXNXZZ Transfer Left Foot Skin, External Approach (ICD-10-PCS; 2016-03-14)
DX: A41.9 Sepsis, unspecified organism (principal); J18.9 Pneumonia, unspecified organism; N17.9 Acute kidney failure, unspecified; R65.21 Severe sepsis with septic shock; E11.40 Type 2 diabetes mellitus with diabetic neuropathy, unspecified; M86.8X7 Other osteomyelitis, ankle and foot; E11.621 Type 2 diabetes mellitus with foot ulcer; L97.523 Non-pressure chronic ulcer of other part of left foot with necrosis of muscle; B95.62 Methicillin resistant Staphylococcus aureus infection as the cause of diseases classified elsewhere; I48.2 Chronic atrial fibrillation; E11.65 Type 2 diabetes mellitus with hyperglycemia; J44.1 Chronic obstructive pulmonary disease with (acute) exacerbation; F17.200 Nicotine dependence, unspecified, uncomplicated; J90 Pleural effusion, not elsewhere classified
CPT/HCPCS: 2NBP; 87184; CCU; ERO; 36415; 73630-LT; 80307; 81001; 82436; 87040; 87070; 87086; 87147; 87449; 87450; 88305; 93005; 93010; 93306; 93970; 96374; 99291; A9561; C1769; J0456; J0696; J1170; J1815; J1885; J3360; J3370; J3490; J7040; J7042; J7512

== ENCOUNTER 2017-04-04 12:21 | Inpatient (IN) | payer OTHER ==
[~2017-04-04] VITALS: Ht 167.6 cm; Wt 142.4 kg
[~2017-04-04 12:21] MED LIST: AZITHROMYCIN250 M1 PO; CARTIA XT120 M1 PO; CYMBALTA60 M1 PO; DULOXETINE HCL60 MG PO; GABAPENTIN300 M2 PO; GLUCOPHAGE1000 M1 PO; LEVEMIR FL100 UNIT/1 SC; LEVEMIR100 UNIT/1 SC; LEVOFLOXACIN500 M1 PO; LOSARTAN-HCTZ1 EAC2 PO; METFORMIN HCL1000 M1 PO; NEXIUM40 M1 PO; NOVOLOG100 UNIT/2 SC; PREDNISONE10 M2 PO; PREDNISONE20 M1 PO; PREDNISONE5 M1 PO; PROVENTIL HFA6.7 GM INH; QUETIAPINE FUMA25 M1 PO; SEROQUEL XR150 M1 PO; SPIRIVA18 MCG INH; SYMBICORT 16010.2 GM INH; TOPIRAMATE100 M2 PO; TRAZODONE HCL50 M1 PO; VANCOMYCIN1.25 GM/25 IV; XARELTO20 M2 PO
--- NOTE | 2017-04-04 13:44 | ED DYSPNEA/ASTHMA COMPLAINT ---
History of Present Illness General Chief Complaint: Upper Respiratory Sx/Fever Stated Complaint: SOB, NO RELIEF OF URI SYMPTOMS Source: patient Exam Limitations: no limitations Vital Signs & Intake/Output Vital Signs & Intake/Output Vital Signs Date Time Temp Pulse Resp B/P B/P Pulse O2 O2 Flow FiO2 Mean Ox Delivery Rate 04/04 1638 97.7 81 20 132/68 92 Room Air 04/04 1445 94 04/04 1352 61 22 143/66 95 Room Air 04/04 1335 95 04/04 1235 98.8 92 20 118/70 Room Air Allergies Coded Allergies: morphine (Severe, MAKES HER CRAZY 03/06/16) Reconcile Medications Albuterol Sulfate (Proventil Hfa) 90 MCG HFA.AER.AD 2 PUF INH 4 TIMES/DAY PRN BREATHING (Reported) Azithromycin 250 MG TABLET 250 MG PO DAILY Lung infection Budesonide/Formoterol Fumarate (Symbicort 160-4.5 Mcg Inhaler) 160 MCG-4.5 MCG/ ACTUATION HFA.AER.AD 2 PUF INH BID BREATHING (Reported) Diltiazem HCl (Cartia Xt) 120 MG CAP.ER.24H 1 CAP PO DAILY HEART (Reported) Duloxetine HCl (Cymbalta) 60 MG CAPSULE.DR 1.5 CAP PO DAILY Mood Esomeprazole (Nexium) 40 MG CAPSULE.DR 1 CAP PO DAILY GI (Reported) Gabapentin 300 MG CAPSULE 2 CAP PO TID PAIN (Reported) Insulin Detemir (Levemir Flextouch) 100 UNIT/ML (3 ML) INSULN.PEN 24 UNIT SC QPM Diaetes Losartan/Hydrochlorothiazide (Losartan-Hctz 100-25 MG Tab) 100 MG-25 MG TABLET 1 TAB PO DAILY HIGH BLOOD PRESSURE (Reported) Metformin HCl (Glucophage) 1,000 MG TABLET 1 TAB PO BID Diabetes Prednisone 5 MG TABLET 1 TAB PO DAILY COPD Exacerbation Quetiapine Fumarate (Seroquel XR) 150 MG TAB.ER.24H 1 TAB PO QPM SLEEP ( Reported) Quetiapine Fumarate 25 MG TABLET 25 MG PO TID Mood Disorder Tiotropium [place] (Spiriva) 18 MCG CAP.W.DEV 1 CAP INH DAILY BREATHING ( Reported) Topiramate 100 MG TABLET 1 TAB PO QPM SLEEP (Reported) Triage Note: PT SENT TO ED BY DR MONTGOMERY FOR WORSENING SOB. PT HAS BEEN ON PREDNISONE AND ABX. STATES HER BREATHING HAS BEEN GETTING WORSE, STATES SHE HAD THE FLU. WENT BACK TO DR MONTGOMERY TODAY FOR RE-EVAL AND SATS WERE FOUND TO BE LOW. PT WAS GIVEN NEB RX AND TOLD TO COME TO ED. RA SATS 94-95%. DENIES ANY PAIN. APPEARS SOB WITH SPEECH. Triage Nurses Notes Reviewed? yes Onset: Abrupt Duration: week(s): (2), continues in ED Timing: recent history Severity: moderate, severe HPI: 51-year-old female comes into the emergency room with persistent cough and shortness of breath. Patient has a history of COPD. Patient reports that she was seen by her primary care doctor couple weeks ago. She was placed on antibiotics and prednisone. She's been increasingly short of breath at home. She's been persistently coughing with shortness of breath and difficulty ambulating. She was sick with some intermittent fevers last week but those symptoms have since resolved. She went to see her primary care doctor today who sent her in for further evaluation. She is currently not on any oxygen at home. (Khadar Toledo) Past History Travel History Traveled to [place] past 21 day No Medical History Any Pertinent Medical History? see below for history Cardiovascular: AFIB, hypertension Respiratory: COPD, pneumonia Endocrine: diabetes Blood Disorders: DVT History of MRSA: Yes History of VRE: No History of CDIFF: No Influenza Vaccine: 02/03/16 Surgical History Surgical History: non-contributory Psychosocial History Who do you live with Spouse Services at Home Nursing What is your primary language Jordanian Tobacco Use: Current Daily Use Daily Tobacco Use Amount/Type: => 5 Cigarettes daily ETOH Use: denies use Illicit Drug Use: denies illicit drug use Family History Family History, If Any: Relation not specified for: *No pertinent family history Hx Contributory? No (Khadar Toledo) Review of Systems Review of Systems Constitutional: Reports: see HPI. EENTM: Reports: see HPI. Respiratory: Reports: see HPI. Cardiovascular: Reports: no symptoms. GI: Reports: no symptoms. Genitourinary: Reports: no symptoms. Musculoskeletal: Reports: no symptoms. Skin: Reports: no symptoms. Neurological/Psychological: Reports: no symptoms. Hematologic/Endocrine: Reports: no symptoms. Immunologic/Allergic: Reports: no symptoms. All Other Systems: Reviewed and Negative (Khadar Toledo) Physical Exam Physical Exam General Appearance: no apparent distress, alert, awake, mild distress Head: atraumatic Eyes: Bilateral: normal appearance, EOMI. Ears, Nose, Throat: normal ENT inspection, hearing grossly normal Respiratory: respiratory distress (moderate) Extremities: normal inspection Neurologic/Psych: awake, alert, oriented x 3, normal gait Skin: intact, normal color Core Measures ACS in differential dx? Yes CVA/TIA Diagnosis No Sepsis Present: No Sepsis Focused Exam Completed? No (Khadar Toledo) Progress Differential Diagnosis: asthma, AMI, bronchitis, costochondritis, CHF, COPD, musculoskeletal pain, pericarditis, pulmonary embolism, pneumonia, pneumothorax, unstable angina Plan of Care: Orders Procedure Date/time Status Heart Healthy Diet 04/05 B Active ED Holding Orders 04/04 1721 Active Admit to inpatient 04/04 1721 Active Vital Signs 04/04 1721 Active Code Status 04/04 1721 Active Patient Data 04/04 1715 Active Add-on Test (ER Only) 04/04 1704 Active EKG 04/04 1653 Active RAPID VIRAL INFLUENZA A 04/04 1650 Active AEROSOL (GEN) 04/04 1442 Complete Add-on Test (ER Only) 04/04 1344 Active D-DIMER 04/04 1343 Complete B-TYPE NATRIURETIC PEP (BNP) 04/04 1343 Active TROPONIN LEVEL 04/04 1304 Active COMPREHENSIVE METABOLIC PANEL 04/04 1304 Active CBC WITHOUT DIFFERENTIAL 04/04 1304 Complete EKG 04/04 1304 Active Laboratory Tests 04/04/17 1343: Anion Gap 14, Estimated GFR > 60, BUN/Creatinine Ratio 31.1 H, Glucose 230 H, Calcium 9.6, Total Bilirubin 0.3, AST 10 L, ALT 24, Alkaline Phosphatase 98, Troponin I < 0.01, Dmj-M-Kcmqybutces Pept Pending, Total Protein 6.7, Albumin 3.8, Globulin 2.9, Albumin/Globulin Ratio 1.3, D-Dimer High Sensitivty < 200, CBC w Diff NO MAN DIFF REQ, RBC 3.60 L, MCV 90.3, MCH 29.9, MCHC 33.2, RDW 15.4 H, MPV 8.7, Gran % 73.3, Lymphocytes % 18.8 L, Monocytes % 7.5, Eosinophils % 0.2, Basophils % 0.2, Absolute Granulocytes 5.9, Absolute Lymphocytes 1.5, Absolute Monocytes 0.6, Absolute Eosinophils 0, Absolute Basophils 0 Microbiology 04/04 1715 NASOPHARYN: Influenza Virus A & B Rapid Smear - RECD Diagnostic Imaging: Viewed by Me: Radiology Read. Discussed w/RAD: Radiology Read. Radiology Impression: PATIENT: BRIGIDO CASILLAS PRESENT AGE: 51 PATIENT ACCOUNT NO: [id number] : 63 LOCATION: [facility] ORDERING PHYSICIAN: Khadar MALDONADO SERVICE DATE: 04/04/17 EXAM TYPE: RAD - XRY-CHEST XRAY, TWO VIEWS EXAMINATION: XR CHEST CLINICAL INFORMATION: Cough. Shortness of breath. COMPARISON: CT scan of the chest 01/16/2017. Chest x-ray 11 08/15/2016. TECHNIQUE: PA and lateral views of the chest were obtained. FINDINGS : The lung breaux are well-expanded bilaterally. There are mildly increased interstitial markings in the lower zones bilaterally with bronchial wall thickening, consistent with reactive airways disease or bronchitis. The cardiac silhouette is normal. The aortic arch is unfolded and the descending artery is tortuous. There are no pleural effusions or pneumothorax. The central pulmonary vasculature is normal. The hilar regions appear normal. The study redemonstrates multilevel degenerative changes in the thoracic spine and chronic compression fractures of T5 and T11. IMPRESSION: 1. Bronchial wall thickening is consistent with reactive airways disease or bronchitis. DICTATED BY: Salvatore Yao MD DATE/ TIME DICTATED:04/04/171405 PRESS CLEANER:CORDELIA DATE/TIME TRANSCRIBED: 04/04/171405 CONFIDENTIAL, DO NOT COPY WITHOUT APPROPRIATE AUTHORIZATION. < Electronically signed in Other Vendor System> SIGNED BY: Salvatore Yao MD 1421 Initial ED EKG: normal sinus rhythm, rate (81) Repeat EKG: unchanged (Khadar Toledo) Departure Departure Disposition: STILL A PATIENT Condition: Stable Clinical Impression Primary Impression: COPD exacerbation Secondary Impressions: Hypoxia Referrals: Adela Montgomery DO (PCP/Family) Departure Forms: Customer Survey General Discharge Information Admission Note Spoke With: Gloria Schwarz MD Documentation of Exam: Documentation of any treatments & extenuating circumstances including Concerns Regarding Discharge (functional status, medication knowledge or non-compliance, living conditions, etc.) that warrant an admission rather than observation: Patient has been on multiple courses of prednisone as well as oral antibiotics. She has failed outpatient treatment. Despite steroids and breathing treatment here she is still to sob on exertion and hypoxic and drops to 88% on room air. She has no oxygen at home. She'll require supplemental oxygen. Pulmonary consultation. Medically not safe for discharge. (Khadar Toledo) PA/3D DESIGNER Co-Sign Statement Statement: ED Attending supervision documentation- [X] I saw and evaluated the patient. I have also reviewed all the pertinent lab results and diagnostic results. I agree with the findings and the plan of care as documented in the PA's/3D DESIGNER's documentation. [] I have reviewed the ED Record and agree with the PA's/3D DESIGNER's documentation. [] Additions or exceptions (if any) to the PAs/3D DESIGNER's note and plan are summarized below: [] Right-sided wheezing mild distress on my exam at 5:21 PM (Vinayak Moore DO) Critical Care Note Critical Care Note Critical Care Time: non-applicable (Khadar Toledo)
[2017-04-04 13:49] LABS: ABSOLUTE BASOPHIL COUNT 0 /CUMM (0.0-0.2); ABSOLUTE EOSINOPHIL COUNT 0 /CUMM (0.0-0.7); ABSOLUTE GRANULOCYTE CT 5.9 /CUMM (1.4-6.5); ABSOLUTE LYMPH COUNT 1.5 /CUMM (1.2-3.4); ABSOLUTE MONOCYTE COUNT 0.6 /CUMM (0.10-0.60); BASOPHIL % 0.2 % (0.0-2.0); EOSINOPHIL % 0.2 % (0-5); GRANULOCYTE % 73.3 % (42.2-75.2); HEMATOCRIT 32.5 % (37-47); MEAN CORPUSCULAR HGB 29.9 PG (27.0-31.0); MEAN CORPUSCULAR HGB CONC 33.2 G/DL (33.0-37.0); MEAN CORPUSCULAR VOLUME 90.3 FL (81.0-99.0); MEAN PLATELET VOLUME 8.7 FL (7.4-10.4); PLATELET COUNT 287 /CUMM (130-400); RBC DISTRIBUTION WIDTH 15.4 % (11.5-14.5); WHITE BLOOD CELL COUNT 8.1 /CUMM (4.8-10.8)
--- NOTE | 2017-04-04 14:21 | RADIOLOGY REPORT ---
EXAMINATION: XR CHEST CLINICAL INFORMATION: Cough. Shortness of breath. COMPARISON: CT scan of the chest 01/16/2017. Chest x-ray 11 08/15/2016. TECHNIQUE: PA and lateral views of the chest were obtained. FINDINGS: The lung breaux are well-expanded bilaterally. There are mildly increased interstitial markings in the lower zones bilaterally with bronchial wall thickening, consistent with reactive airways disease or bronchitis. The cardiac silhouette is normal. The aortic arch is unfolded and the descending artery is tortuous. There are no pleural effusions or pneumothorax. The central pulmonary vasculature is normal. The hilar regions appear normal. The study redemonstrates multilevel degenerative changes in the thoracic spine and chronic compression fractures of T5 and T11. IMPRESSION: 1. Bronchial wall thickening is consistent with reactive airways disease or bronchitis.
--- NOTE | 2017-04-04 17:02 | History & Physical ---
[place] 04/04/17 1702: General Information and HPI MD Statement: I have seen and personally examined BRIGIDO CASILLAS and documented this H&P. The patient is a 51 year old F who presented with a patient stated chief complaint of dry cough and short of breath that's progressively worsening for 1 week. []. Source of Information: patient, old records Exam Limitations: no limitations History of Present Illness: 51 YO F current somoker (2packs/day) with PMH of COPD not on home O2, DM, HTN, A.fib on xeralto, DVT of right lower extremity, depression/anxiety, right foot osteomyelitis with MRSA presented to ED with progressively worsening shortness of breath and dry cough for last 1 week. Patient reported that she was in her usual state of health one-week pack when she suddenly started having any nose, dry cough with body aches and pains. Patient went to her primary care physician who prescribed her low-dose prednisone and azithromycin but he didn't improve her condition and her dry and shortness of breath progressively worsened. This morning patient was feeling more short of breath and weakness. Patient went to her primary care physician who checked her saturation was running low and she sent the patient to an emergency room for further evaluation. She denied any chest pain, palpitation, nausea, vomiting, lightheadedness, melena, diarrhea, constipation, abdominal pain, chills, fever and dysuria. Patient reported that for last couple of weeks she is feeling more depressed and worried about her 's condition that's why she started to smoke more frequently. Patient reported that now she is smoking 2 packs a day. For last couple of days patient also running out of her inhalers that she was using for COPD. Her last echocardiogram was done on 01/16/2017 that showed ejection fraction more than 65% with stage I diastolic dysfunction. Last time patient was admitted to [facility] on 01/15/2017 when she presented with syncopal episode with collapse. ED course: Vitals: Temperature 98.8, pulse 92, respiratory 20, blood pressure 118/70, oxygen saturation 95% on room air. Labs: WBC count 8.1, hemoglobin 10.8, hematocrit 32.5, platelet count 287, sodium 140, potassium 3.9, BUN 28, creatinine 0.9, BUN/creatinine ratio 31.1, anion gap 14, glucose 2:30, calcium 9.6, AST 10, ALT 24, alkaline phosphatase 98 , troponin less than 0.01, albumin 3.8. Patient received one dose of azithromycin in ED Allergies/Medications Allergies: Coded Allergies: morphine (Severe, MAKES HER CRAZY 03/06/16) Home Med list Albuterol Sulfate (Proventil Hfa) 90 MCG HFA.AER.AD 2 PUF INH 4 TIMES/DAY PRN BREATHING (Reported) Azithromycin 250 MG TABLET 250 MG PO DAILY Lung infection Budesonide/Formoterol Fumarate (Symbicort 160-4.5 Mcg Inhaler) 160 MCG-4.5 MCG/ ACTUATION HFA.AER.AD 2 PUF INH BID BREATHING (Reported) Diltiazem HCl (Cartia Xt) 120 MG CAP.ER.24H 1 CAP PO DAILY HEART (Reported) Duloxetine HCl (Cymbalta) 60 MG CAPSULE.DR 1.5 CAP PO DAILY Mood Esomeprazole (Nexium) 40 MG CAPSULE.DR 1 CAP PO DAILY GI (Reported) Gabapentin 300 MG CAPSULE 2 CAP PO TID PAIN (Reported) Insulin Detemir (Levemir Flextouch) 100 UNIT/ML (3 ML) INSULN.PEN 24 UNIT SC QPM Diaetes Losartan/Hydrochlorothiazide (Losartan-Hctz 100-25 MG Tab) 100 MG-25 MG TABLET 1 TAB PO DAILY HIGH BLOOD PRESSURE (Reported) Metformin HCl (Glucophage) 1,000 MG TABLET 1 TAB PO BID Diabetes Prednisone 5 MG TABLET 1 TAB PO DAILY COPD Exacerbation Quetiapine Fumarate (Seroquel XR) 150 MG TAB.ER.24H 1 TAB PO QPM SLEEP ( Reported) Quetiapine Fumarate 25 MG TABLET 25 MG PO TID Mood Disorder Tiotropium [place] (Spiriva) 18 MCG CAP.W.DEV 1 CAP INH DAILY BREATHING ( Reported) Topiramate 100 MG TABLET 1 TAB PO QPM SLEEP (Reported) Past History Travel History Traveled to [place] past 21 day No Medical History Cardiovascular: AFIB, hypertension Respiratory: COPD, pneumonia Endocrine: diabetes Blood Disorders: DVT History of MRSA: Yes History of VRE: No History of CDIFF: No Influenza Vaccine: 02/03/16 Surgical History Surgical History: non-contributory Past Family/Social History Family History Relations & Conditions if any Relation not specified for: *No pertinent family history Psychosocial History Who Do You Live With? spouse Services at Home: Nursing ETOH Use: denies use Illicit Drug Use: denies illicit drug use Functional Ability ADLs Independent: dressing, eating, toileting, bathing. Ambulation: independent IADLs Independent: shopping, housework, finances, food prep, telephone, transportation , medication admin. Review of Systems Review of Systems Constitutional: Reports: weakness. EENTM: Reports: no symptoms. Cardiovascular: Reports: no symptoms. Respiratory: Reports: cough, short of breath. GI: Reports: no symptoms. Genitourinary: Reports: no symptoms. Musculoskeletal: Reports: no symptoms. Neurological/Psychological: Reports: no symptoms. Exam & Diagnostic Data Last 24 Hrs of Vital Signs/I&O Vital Signs Date Time Temp Pulse Resp B/P B/P Pulse O2 O2 Flow FiO2 Mean Ox Delivery Rate 04/04 1638 97.7 81 20 132/68 92 Room Air 04/04 1445 94 04/04 1352 61 22 143/66 95 Room Air 04/04 1335 95 04/04 1235 98.8 92 20 118/70 Room Air Intake & Output 04/04 1600 04/04 0800 04/04 0000 Intake Total 0 Output Total Balance 0 Intake, Oral 0 Patient 314 lb Weight Weight Reported by Patient Measurement Method Physical Exam General Appearance Alert, Oriented X3, Cooperative, No Acute Distress Skin Temp/Moisture Exam: Warm/Dry Sepsis Skin Exam (color): Normal for Ethnicity HEENT Atraumatic, PERRLA, EOMI Neck Supple Cardiovascular Normal S1, Normal S2 Lungs wheezing b/l Abdomen Soft, No Tenderness Neurological Normal Speech, Strength at 5/5 X4 Ext, Normal Tone, Sensation Intact Extremities No Edema Last 24 Hrs of Labs/Chase: Laboratory Tests 04/04/17 1343: Anion Gap 14, Estimated GFR > 60, BUN/Creatinine Ratio 31.1 H, Glucose 230 H, Calcium 9.6, Total Bilirubin 0.3, AST 10 L, ALT 24, Alkaline Phosphatase 98, Troponin I < 0.01, Skh-U-Godpzzfpuro Pept 521 H, Total Protein 6.7, Albumin 3.8 , Globulin 2.9, Albumin/Globulin Ratio 1.3, D-Dimer High Sensitivty < 200, CBC w Diff NO MAN DIFF REQ, RBC 3.60 L, MCV 90.3, MCH 29.9, MCHC 33.2, RDW 15.4 H, MPV 8.7, Gran % 73.3, Lymphocytes % 18.8 L, Monocytes % 7.5, Eosinophils % 0.2, Basophils % 0.2, Absolute Granulocytes 5.9, Absolute Lymphocytes 1.5, Absolute Monocytes 0.6, Absolute Eosinophils 0, Absolute Basophils 0 Microbiology 04/04 1715 NASOPHARYN: Influenza Virus A & B Rapid Smear - COMP Assessment/Plan Assessment: 51 YO F current somoker (2packs/day) with PMH of COPD not on home O2, DM, HTN, Proxysmal A.fib not on anticoagulation, DVT of right lower extremity, depression /anxiety, right foot osteomyelitis with MRSA presented to ED with progressively worsening shortness of breath and dry cough for last 1 week. We'll admit the patient on general medicine floor to treat for COPD exacerbation. COPD exacerbation: -Hypoxic in emergency to 88-89% on ambulation with respiratory distress. - -Could be possibly due to viral tracheobronchitis or non availability of medications. -Oxygen supplementation as needed to keep oxygen saturation above 92%. -IV Solu-Medrol every 6 hourly -TRC nebulization -Chest physiotherapy -We will follow sputum cultures. -We will start Spiriva. -Rapid flu test negative. H/O A.fib: -We will continue xeralto. History of diabetes: -Accu-Cheks -Insulin NovoLog according to sliding scale. -We will continue Levemir. History of depression/anxiety: -We will continue home medications. -Possible psych consult History of hypertension and GERD: -We will continue home medications DVT prophylaxis; Mechanical and Lovenox CODE STATUS: Full code. As Ranked By This Provider Problem List: 1. COPD exacerbation Core Measures/Misc (11/19) Acute Coronary Syndrome ACS Diagnosis: No Congestive Heart Failure Congestive Heart Failure Diagnosis No Cerebrovascular Accident CVA/TIA Diagnosis: No VTE (View Protocol) VTE Risk Factors Age>40 No Mechanical VTE Prophylaxis d/t N/A MechProphylax Ordered No VTE Pharm Prophylaxis d/t NA PharmProphylax ordered Sepsis (View protocol) Sepsis Present: No Musa Capellan 04/04/17 0485: Resident Review Statement Resident Statement: examined this patient, discussed with internet consultant, agreed with internet consultant, discussed with family, reviewed EMR data (avail), discussed with nursing , discussed with case mgmt, reviewed images, amended to note Other Findings: 51 year old woman with 2 week history of worsening breathing status, started with dry hacking cough, muscle aches (not checked for flu), started on Prednisone and Zithro by PCP without much symptom improvement presents today to [facility] ED for management of her exacerbation. Patient ran out of her inhalers and nebulizers about 2 weeks ago secondary to insurance issues. Additionally, patient has been smoking 2 packs a day (in increments of 1 pack a day from her previous usage) to counter her ongoing stress. 1. COPD exacerbation: Likely multifactorial etiology-a viral tracheobronchitis 2 weeks ago, non-use of nebulizers and inhalers and increase in smoking. Start Symbicort, Spiriva. IV Solu-Medrol 40 mg every 6 hours. TRC. Check sputum culture. Rapid flu negative. Encourage smoking cessation. Reports decreased by mouth intake, gentle hydration 1 bag, encourage by mouth intake. Of note, previous CAT scan from January 2017 has shown groundglass opacities, for pneumonitis, which at some point needs to be followed up with another CAT scan. 2. Diabetes: Continue Levemir at half the home dose. Monitor sugars closely. Uptitrate pending above. Insulin sliding scale. Hold metformin. 3. Depression/anxiety: Psych consult. Patient extremely tearful secondary to her ongoing stressful saturations at home. 4. Continue medications for hypertension, and acid reflux. Xarelto for DVT prophylaxis. Full code. Diabetic diet. Karishma RESTREPO,Gloria 04/04/177: Attending MD Review Statement Attending Statement Attending MD Statement: examined this patient, discuss w/resident/PA/LETTERER, agreed w/resident/PA/LETTERER, reviewed EMR data (avail), discussed with nursing, reviewed images Attending Assessment/Plan: 51-year-old female with a past medical history of diabetes on insulin, COPD still smoking who is sent in by her PCP Adela Reynolds DO for persistent shortness of breath cough and a presumed COPD exacerbation that has failed outpatient prednisone and antibiotics. Patient seen by her PCP in the office and prescribed a course of prednisone and azithromycin for what was thought to be a bronchitis complicating flu like symptoms. Patient's symptoms have continued despite that. Should be noted that she is chronically steroid dependent and takes a low-dose prednisone daily. In the emergency room she was found to be hypoxic on ambulation as evidenced by a sat of 88-89% on ambulation with visible shortness of breath and respiratory distress. Her chest x-ray done today shows probable reactive airway disease suggestive of bronchitis. And her d-dimer is less than 200 with a low clinical suspicion for a PE . At this point I think she has a COPD exacerbation having failed outpatient treatment. Will bring her into GEN med, treat her with IV Solu-Medrol, TRC with nebs, continue her insulin for her diabetes, call Dr Garza to consult as she follows with him as an outpt.
[2017-04-04 19:45] VITALS: BP 172/100
--- NOTE | 2017-04-04 21:15 | Admission Certification ---
Admission Certification Certification Statement - As attending physician, I certify that at the time of - admission, based on clinical presentation, severity of - symptoms, need for further diagnostic testing and - therapeutic interventions, and risk of adverse outcomes - without in-hospital treatment, in my clinical assessment, - this patient requires an acute hospital stay for a minimum - of two nights or longer. I have also considered psychsocial - factors such as support system, advanced age, financial - issues, cognitive issues, and failed out-patient treatments, - past re-admission history, safety of patient, and lack of - compliance as applicable. Specific rationale supporting this admission is: COPD exacerbation, failed outpt therapy
[2017-04-05 06:49] VITALS: BP 146/90
--- NOTE | 2017-04-05 07:57 | PN- Housestaff ---
[place] 04/05/17 0756: Subjective Follow-up For: COPD exacerbation Subjective: No overnight events. Patient remained afebrile overnight. Seen and examined this morning. She denied any chest pain, nausea, vomiting, chills, fever, abdominal pain dysuria. Patient reported having cough with brown colored sputum and exertional dyspnea. She was using 2 L of oxygen maintaining saturation 95%. Her fasting blood sugar is 236 we will change her Levemir to 11 units twice a day and high dose NovoLog sliding scale. Review of Systems Constitutional: Reports: no symptoms. EENTM: Reports: no symptoms. Cardiovascular: Reports: no symptoms. Respiratory: Reports: cough, short of breath, sputum production. Gastrointestinal: Reports: no symptoms. Genitourinary: Reports: no symptoms. Musculoskeletal: Reports: no symptoms. Neurological/Psychological: Reports: no symptoms. Objective Last 24 Hrs of Vital Signs/I&O Vital Signs Date Time Temp Pulse Resp B/P B/P Pulse O2 O2 Flow FiO2 Mean Ox Delivery Rate 04/05 0856 76 146/90 04/05 0820 93 Nasal 2.0L Cannula 04/05 0800 Nasal 2.0L Cannula 04/05 0649 97.8 76 22 146/90 95 Nasal Cannula 04/04 2203 Nasal 2.0L Cannula 04/04 1957 Nasal 2.0L Cannula 04/04 194 97.9 74 22 172/100 94 Nasal 2.0L Cannula 04/04 1638 97.7 81 20 132/68 92 Room Air 04/04 1445 94 04/04 1352 61 22 143/66 95 Room Air 04/04 1335 95 Intake & Output 04/05 1600 04/05 0800 04/05 0000 Intake Total 1200 705 Output Total Balance 1200 705 Intake, IV 600 225 Intake, Oral 600 480 Patient 314 lb Weight Weight Reported by Patient Measurement Method Physical Exam General Appearance: Alert, Oriented X3, Cooperative Skin Temp/Moisture Exam: Warm/Dry Sepsis Skin Exam (color): Normal for Ethnicity HEENT: Atraumatic, PERRLA, EOMI Neck: Supple Cardiovascular: Normal S1, Normal S2 Lungs: right lung ronchi and decreased breath sounds compare to left Abdomen: Soft, No Tenderness Neurological: Normal Speech, Strength at 5/5 X4 Ext, Normal Tone Extremities: No Edema Assessment/Plan Assessment: 51 YO F current somoker (2packs/day) with PMH of COPD not on home O2, DM, HTN, Proxysmal A.fib not on anticoagulation, DVT of right lower extremity, depression /anxiety, right foot osteomyelitis with MRSA presented to ED with progressively worsening shortness of breath and dry cough for last 1 week. We'll admit the patient on general medicine floor to treat for COPD exacerbation. COPD exacerbation: -Hypoxic in emergency to 88-89% on ambulation with respiratory distress. -Could be possibly due to viral tracheobronchitis or non availability of medications. -Oxygen supplementation as needed to keep oxygen saturation above 92%. -IV Solu-Medrol every 6 hourly -TRC nebulization -Chest physiotherapy -We will follow sputum cultures. -We will continue Spiriva. -Rapid flu test negative. -we will follow the pulmonology recommendations. H/O A.fib: -We will continue xeralto. History of diabetes: -Accu-Cheks -Insulin NovoLog according to sliding scale. -We will continue Levemir 11 units bid. History of depression/anxiety: -We will continue home medications. -Possible psych consult History of hypertension and GERD: -We will continue home medications DVT prophylaxis; Mechanical and Lovenox CODE STATUS: Full code. Problem List: 1. COPD exacerbation Pain Ratin Pain Location: none Pain Goal: Remain pain free Pain Plan: pain pathway Tomorrow's Labs & Rationales: cbc/bep Osvaldo Clay MD 04/05/17 1339: Attending MD Review Statement Attending Statement Attending MD Statement: examined this patient, discuss w/resident/PA/NETWORK PROFESSIONAL, agreed w/resident/PA/NETWORK PROFESSIONAL, reviewed EMR data (avail) Attending Assessment/Plan: 51F PMH T2DM, morbid obesity, COPD, with 1 week of productive cough, weakness, and dyspnea, failed outpatient treatment with Prednisone, admitted for continued dyspnea, wheezing, and hypoxia 85% (on room air at home). 1. COPD Exacerbation 2. Acute hypoxemic respiratory failure 3. Acute bronchitis Plan - Continue on general medicine - Continue Solumedrol, taper tomorrow if improved - Continue Azithromycin - Nebulizer treatments - Titrate down oxygen as tolerated - Continue home medications - Sputum culture - DVT PPx - PT eval (patient fell yesterday and has a history of fall with pelvic fracture )
[2017-04-05 09:36] LABS: ABSOLUTE BASOPHIL COUNT 0 /CUMM (0.0-0.2); ABSOLUTE EOSINOPHIL COUNT 0 /CUMM (0.0-0.7); ABSOLUTE GRANULOCYTE CT 6.2 /CUMM (1.4-6.5); ABSOLUTE MONOCYTE COUNT 0.3 /CUMM (0.10-0.60); HEMATOCRIT 30.3 % (37-47); MEAN CORPUSCULAR HGB 32.4 PG (27.0-31.0); MEAN CORPUSCULAR HGB CONC 34.2 G/DL (33.0-37.0); MEAN PLATELET VOLUME 8.9 FL (7.4-10.4); PLATELET COUNT 250 /CUMM (130-400); RBC DISTRIBUTION WIDTH 15.5 % (11.5-14.5); RED BLOOD CELL CT 3.19 /CUMM (4.20-5.40); WHITE BLOOD CELL COUNT 7.5 /CUMM (4.8-10.8)
[2017-04-05 10:19] LABS: BASOPHIL % 0 % (0.0-2.0); EOSINOPHIL % 0 % (0-5); GRANULOCYTE % 82.3 % (42.2-75.2)
[2017-04-05 10:20] LABS: MEAN CORPUSCULAR VOLUME 94.9 FL (81.0-99.0)
--- NOTE | 2017-04-05 11:03 | Cons- Pulmonary ---
General Information and HPI Consulting Request Date of Consult: 04/05/17 Requested By: Dr. Clay Reason for Consult: COPD management Source of Information: patient, old records Exam Limitations: no limitations History of Present Illness: The patient is a 51 year old female current somoker (2packs/day), with PMH of COPD not on home O2, DM, HTN, A.fib on Xeralto, DVT of the right lower extremity , depression/anxiety, and right foot osteomyelitis infected with MRSA in the past. The patient presented to the ED with progressively worsening shortness of breath and dry cough for 1 week prior to admission. She was in her usual state of health one-week prior, before developing rhinitis, a dry cough with body aches and pains. She saw her primary care physician who prescribed her low-dose prednisone and azithromycin but she did not improve and her dry and shortness of breath progressively worsened. This morning she was feeling more short of breath and weak. She again saw her primary care physician who checked her oxygen saturation which was reported as low, and she was sent to the ED for further evaluation. Rapid flu was negative. A CXR was done which showed bronchial wall thickening is consistent with reactive airways disease or bronchitis. The patient was placed on IV solumedrol, nebs/TRC and Spiriva. She feels significantly improved since admission. Allergies/Medications Allergies: Coded Allergies: morphine (Severe, MAKES HER CRAZY 03/06/16) Home Med List: Albuterol Sulfate (Proventil Hfa) 90 MCG HFA.AER.AD 2 PUF INH 4 TIMES/DAY PRN BREATHING (Reported) Azithromycin 250 MG TABLET 250 MG PO DAILY Lung infection Budesonide/Formoterol Fumarate (Symbicort 160-4.5 Mcg Inhaler) 160 MCG-4.5 MCG/ ACTUATION HFA.AER.AD 2 PUF INH BID BREATHING (Reported) Diltiazem HCl (Cartia Xt) 120 MG CAP.ER.24H 1 CAP PO DAILY HEART (Reported) Duloxetine HCl (Cymbalta) 60 MG CAPSULE.DR 1.5 CAP PO DAILY Mood Esomeprazole (Nexium) 40 MG CAPSULE.DR 1 CAP PO DAILY GI (Reported) Gabapentin 300 MG CAPSULE 2 CAP PO TID PAIN (Reported) Insulin Detemir (Levemir Flextouch) 100 UNIT/ML (3 ML) INSULN.PEN 24 UNIT SC QPM Diaetes Losartan/Hydrochlorothiazide (Losartan-Hctz 100-25 MG Tab) 100 MG-25 MG TABLET 1 TAB PO DAILY HIGH BLOOD PRESSURE (Reported) Metformin HCl (Glucophage) 1,000 MG TABLET 1 TAB PO BID Diabetes Prednisone 5 MG TABLET 1 TAB PO DAILY COPD Exacerbation Quetiapine Fumarate (Seroquel XR) 150 MG TAB.ER.24H 1 TAB PO QPM SLEEP ( Reported) Quetiapine Fumarate 25 MG TABLET 25 MG PO TID Mood Disorder Tiotropium [place] (Spiriva) 18 MCG CAP.W.DEV 1 CAP INH DAILY BREATHING ( Reported) Topiramate 100 MG TABLET 1 TAB PO QPM SLEEP (Reported) Current Medications: Current Medications Sig/Teresita Start time Last Medication Dose Route Stop Time Status Admin Albuterol Sulfate 3 ML TID 04/05 1000 AC 04/05 INH 0817 Albuterol Sulfate 2 PUF 4 TIMES/DAY PRN 04/04 1800 AC INH Albuterol Sulfate 3 ML ONCE ONE 04/04 1400 DC 04/04 INH 04/04 1401 1441 Azithromycin 500 MG ONCE ONE 04/04 1615 DC 04/04 PO 04/04 1616 1621 Budesonide/ 2 PUF BID 04/04 2200 AC 04/05 Formoterol Fumarate INH 0905 Diltiazem HCl 120 MG DAILY 04/04 1749 AC 04/05 PO 0856 Duloxetine HCl 90 MG DAILY 04/04 1750 AC 04/05 PO 0857 Enoxaparin Sodium 40 MG DAILY 04/05 1000 CAN SC Gabapentin 600 MG TID 04/04 2200 AC 04/05 PO 0857 Insulin Aspart 0 TIDAC 04/05 0800 AC 04/05 SC 0806 Insulin Aspart 4 UNITS ONCE ONE 04/05 0100 DC 04/05 SC 04/05 0101 0123 Insulin Aspart 0 AT BEDTIME 04/04 2200 AC 04/04 SC 2202 Insulin Detemir 20 UNITS AT BEDTIME 04/05 2200 AC SC Insulin Detemir 12 UNITS AT BEDTIME 04/04 2200 DC 04/04 SC 2148 Ipratropium [place] 2.5 ML ONCE ONE 04/04 1400 DC 04/04 INH 04/04 1401 1441 Losartan Potassium 100 MG DAILY 04/05 1000 AC 04/05 PO 0856 Methylprednisolone 40 MG Q6 04/04 1800 AC 04/05 IV 04/07 1201 0613 Methylprednisolone 0 .STK-MED ONE 04/04 1424 DC .ROUTE Methylprednisolone 125 MG ONCE ONE 04/04 1400 DC 04/04 IV 04/04 1401 1423 Nicotine 21 MG DAILY 04/05 1000 AC TOP Omeprazole 0 .STK-MED ONE 04/04 1817 DC PO Omeprazole 40 MG DAILY AC 04/04 1749 AC 04/05 PO 0613 Quetiapine Fumarate 100 MG BID 04/04 2200 AC 04/04 PO 2149 Quetiapine Fumarate 25 MG TID 04/04 2199 AC 04/05 PO 0858 Rivaroxaban 20 MG DAILY 04/04 2000 AC 04/05 PO 0859 Sodium Chloride 1,000 ML Q13H 04/04 1800 DC 04/04 IV 04/05 0659 2015 Tiotropium [place] 1 PUF DAILY 04/04 1748 AC 04/05 INH 0904 Topiramate 100 MG QPM 04/04 220 AC 04/04 PO 2148 Review of Systems Review of Systems All Other Systems: Reviewed and Negative Past History Travel History Traveled to [place] past 21 day No Medical History Blood Transfusion Hx: Yes Neurological: NONE EENT: NONE Cardiovascular: AFIB, hypertension Respiratory: COPD, pneumonia Gastrointestinal: NONE Hepatic: NONE Renal: NONE Musculoskeletal: NONE Psychiatric: anxiety, bipolar disease, depression Endocrine: diabetes Blood Disorders: DVT Cancer(s): NONE ASSISTANT DIRECTOR OF NURSING/Reproductive: NONE Surgical History Surgical History: non-contributory Family History Relations & Conditions If Any: Relation not specified for: *No pertinent family history Psychosocial History Where Do You Live? Home Who Do You Live With? spouse Services at Home: Nursing Smoking Status: Current Everyday Smoker ETOH Use: denies use Illicit Drug Use: denies illicit drug use Functional Ability ADLs Independent: dressing, eating, toileting, bathing. Ambulation: independent IADLs Independent: shopping, housework, finances, food prep, telephone, transportation , medication admin. Exam & Diagnostic Data Last 24 Hrs of Vital Signs/I&O Vital Signs Date Time Temp Pulse Resp B/P B/P Pulse O2 O2 Flow FiO2 Mean Ox Delivery Rate 04/05 0856 76 146/90 04/05 0820 93 Nasal 2.0L Cannula 04/05 06 97.8 76 22 146/90 95 Nasal Cannula 04/04 2202 Nasal 2.0L Cannula 04/04 1956 Nasal 2.0L Cannula 01/31 1945 97.9 74 22 172/100 94 Nasal 2.0L Cannula 04/04 1638 97.7 81 20 132/68 92 Room Air 04/04 1445 94 04/04 1352 61 22 143/66 95 Room Air 04/04 1335 95 04/04 1235 98.8 92 20 118/70 Room Air Intake & Output 04/05 1600 04/05 0800 04/05 0000 Intake Total 1200 705 Output Total Balance 1200 705 Intake, IV 600 225 Intake, Oral 600 480 Patient 314 lb Weight Weight Reported by Patient Measurement Method Physical Exam General Appearance: no apparent distress, alert, awake, comfortable Head: atraumatic, normal appearance Eyes: Bilateral: PERRL. Respiratory: no respiratory distress, decreased breath sounds Cardiovascular: S1 and S2 heard, no obvious murmur Gastrointestinal: normal bowel sounds, soft, non-tender Extremities: no edema Skin: intact, normal color, warm/dry Last 48 Hrs of Labs/Chase: Laboratory Tests 04/05/17 0740: Anion Gap 13, Estimated GFR > 60, BUN/Creatinine Ratio 32.2 H, CBC w Diff NO MAN DIFF REQ, RBC 3.19 L, MCV 94.9, MCH 32.4 H, MCHC 34.2, RDW 15.5 H, MPV 8.9, Gran % 82.3 H, Lymphocytes % 13.9 L, Monocytes % 3.8, Eosinophils % 0, Basophils % 0, Absolute Granulocytes 6.2, Absolute Lymphocytes 1.0 L, Absolute Monocytes 0.3, Absolute Eosinophils 0, Absolute Basophils 0 04/04/17 1343: Anion Gap 14, Estimated GFR > 60, BUN/Creatinine Ratio 31.1 H, Glucose 230 H, Calcium 9.6, Total Bilirubin 0.3, AST 10 L, ALT 24, Alkaline Phosphatase 98, Troponin I < 0.01, Bcg-E-Okvvjgxkbac Pept 521 H, Total Protein 6.7, Albumin 3.8 , Globulin 2.9, Albumin/Globulin Ratio 1.3, D-Dimer High Sensitivty < 200, CBC w Diff NO MAN DIFF REQ, RBC 3.60 L, MCV 90.3, MCH 29.9, MCHC 33.2, RDW 15.4 H, MPV 8.7, Gran % 73.3, Lymphocytes % 18.8 L, Monocytes % 7.5, Eosinophils % 0.2, Basophils % 0.2, Absolute Granulocytes 5.9, Absolute Lymphocytes 1.5, Absolute Monocytes 0.6, Absolute Eosinophils 0, Absolute Basophils 0 Microbiology 04/04 1715 NASOPHARYN: Influenza Virus A & B Rapid Smear - COMP Assessment/Plan Impression/Plan: 1. AECOPD. 2. Ongoing tobacco abuse. Recommendations: * Continue IV solumedrol. * Add azithromycin for antinflammatory effect. * Continue nebs/TRC. * Continue Spiriva. * Attempt to wean oxygen down to off if able. * Check ambulatory oxygen saturations. * Smoking cessation counseling. * DVT prophylaxis at all times. Consult Acknowledgment - Thank you for your consult request.
[2017-04-05 14:43] VITALS: BP 130/90
[2017-04-05 22:47] VITALS: BP 150/78
[2017-04-06 06:00] VITALS: BP 160/100
[2017-04-06 07:33] VITALS: BP 160/80
--- NOTE | 2017-04-06 08:54 | PN- Housestaff ---
[facility] Subjective Follow-up For: COPD exacerbation due to bronchitis Acute hypoxemic respiratory failure Subjective: No overnight events. Patient remained afebrile. Seen and examined this morning. Patient denied any chest pain, nausea, vomiting, chills, fever, abdominal pain and dysuria. Patient reported intermittent cough not bringing any phlegm. She is on 2 L of oxygen and maintaining saturation 93%. We will try to wean off the oxygen today and will check her saturation. Today her fasting blood sugar level is 314. Review of Systems Constitutional: Reports: no symptoms. EENTM: Reports: no symptoms. Cardiovascular: Reports: no symptoms. Respiratory: Reports: cough. Gastrointestinal: Reports: no symptoms. Genitourinary: Reports: no symptoms. Neurological/Psychological: Reports: no symptoms. Objective Last 24 Hrs of Vital Signs/I&O Vital Signs Date Time Temp Pulse Resp B/P B/P Pulse O2 O2 Flow FiO2 Mean Ox Delivery Rate 04/06 0842 93 Room Air 04/06 0733 160/80 04/06 0629 67 160/100 04/06 0600 98.3 67 20 160/100 92 Room Air 04/06 0000 Room Air 04/05 2247 98.1 67 18 150/78 91 Room Air 04/05 1920 94 Room Air 04/05 1600 Room Air 04/05 1443 98.1 70 20 130/90 91 Intake & Output 04/06 1600 04/06 0800 04/06 0000 Intake Total 120 1050 Output Total Balance 120 1050 Intake, IV 20 250 Intake, Oral 100 800 Physical Exam General Appearance: Alert, Oriented X3, Cooperative Skin Temp/Moisture Exam: Warm/Dry Sepsis Skin Exam (color): Normal for Ethnicity HEENT: Atraumatic, PERRLA, EOMI Neck: Supple Cardiovascular: Normal S1, Normal S2 Lungs: Decreased breath sounds b/l Abdomen: Soft, No Tenderness Neurological: Normal Speech, Strength at 5/5 X4 Ext, Normal Tone Extremities: No Edema Assessment/Plan Assessment: 51 YO F current somoker (2packs/day) with PMH of COPD not on home O2, DM, HTN, Proxysmal A.fib not on anticoagulation, DVT of right lower extremity, depression /anxiety, right foot osteomyelitis with MRSA presented to ED with progressively worsening shortness of breath and dry cough for last 1 week. We'll admit the patient on general medicine floor to treat for COPD exacerbation. Acute hypoxemic respiratory failure due to COPD exacerbation: -COPD exacerbation possibly due to acute bronchitis with acute hypoxemic respiratory failure. -Supplemental oxygen as needed to maintain saturation above 92%. -Could be possibly due to viral tracheobronchitis or non availability of medications. -IV Solu-Medrol every 12 hourly. -TRC nebulization -Chest physiotherapy -Continue azithromycin day 2 -We will follow sputum cultures. -We will continue Spiriva. -Rapid flu test negative. -we will follow the pulmonology recommendations. H/O A.fib: -We will continue xeralto. History of diabetes: -Accu-Cheks -Insulin NovoLog according to sliding scale. -We will continue Levemir 11 units bid. History of depression/anxiety: -We will continue home medications. -Possible psych consult History of hypertension and GERD: -We will continue home medications DVT prophylaxis; Mechanical and Lovenox CODE STATUS: Full code. Problem List: 1. COPD exacerbation Pain Ratin Pain Location: none Pain Goal: Remain pain free Pain Plan: pain pathway Tomorrow's Labs & Rationales: none Osvaldo Clay MD 04/06/17 1301: Attending MD Review Statement Attending Statement Attending MD Statement: examined this patient, discuss w/resident/PA/SOIL SAMPLER, agreed w/resident/PA/SOIL SAMPLER, reviewed EMR data (avail) Attending Assessment/Plan: 51F PMH T2DM, morbid obesity, COPD, with 1 week of productive cough, weakness, and dyspnea, failed outpatient treatment with Prednisone, admitted for continued dyspnea, wheezing, and hypoxia 85% (on room air at home). Improving, now on room air, wheezing improved, able to ambulate with only mild dyspnea. 1. COPD Exacerbation 2. Acute hypoxemic respiratory failure 3. Acute bronchitis Plan - Continue on general medicine - Taper Solumedrol to 40mg q12h - Continue Azithromycin - Nebulizer treatments - Titrate down oxygen as tolerated - Continue home medications - Sputum culture - DVT PPx - Potential discharge this afternoon or tomorrow if continues to improve
--- NOTE | 2017-04-06 09:08 | PN- Pulmonary ---
Objective Current Medications: Current Medications Sig/Teresita Start time Last Medication Dose Route Stop Time Status Admin Albuterol Sulfate 3 ML TID 04/05 1000 AC 04/05 INH 1920 Albuterol Sulfate 2 PUF 4 TIMES/DAY PRN 04/04 1800 AC INH Azithromycin 500 MG Q24H 04/06 1700 AC Dextrose/Water 250 ML IV Azithromycin 500 MG DAILY 04/05 1538 DC 04/05 Dextrose/Water 250 ML IV 04/08 1600 1707 Budesonide/ 2 PUF BID 04/04 2200 AC 04/05 Formoterol Fumarate INH 2101 Diltiazem HCl 120 MG DAILY 04/04 1749 AC 04/05 PO 0856 Duloxetine HCl 90 MG DAILY 04/04 1750 AC 04/05 PO 0857 Gabapentin 600 MG TID 04/04 2200 AC 04/05 PO 2100 Insulin Aspart 0 TIDAC 04/05 0800 AC 04/06 SC 0803 Insulin Aspart 0 AT BEDTIME 04/04 2200 AC 04/05 SC 2100 Insulin Detemir 20 UNITS AT BEDTIME 04/05 2200 CAN SC Insulin Detemir 11 UNITS BID 04/05 1109 DC 04/05 SC 04/05 2201 2100 Losartan Potassium 100 MG DAILY 04/05 1000 AC 04/06 PO 0629 Methylprednisolone 40 MG Q6 04/04 1800 AC 04/06 IV 04/07 1201 0618 Nicotine 21 MG DAILY 04/05 1000 AC TOP Omeprazole 40 MG DAILY AC 04/04 1749 AC 04/06 PO 0617 Quetiapine Fumarate 100 MG BID 04/04 2200 AC 04/05 PO 2100 Quetiapine Fumarate 25 MG TID 04/04 2200 AC 04/05 PO 2100 Rivaroxaban 20 MG DAILY 04/04 2000 AC 04/05 PO 0859 Tiotropium [place] 1 PUF DAILY 04/04 1748 AC 04/05 INH 0904 Topiramate 100 MG QPM 04/04 2200 AC 04/05 PO 2100 Vital Signs & I&O Last 24 Hrs of Vitals and I&O: Vital Signs Date Time Temp Pulse Resp B/P B/P Pulse O2 O2 Flow FiO2 Mean Ox Delivery Rate 04/06 0842 93 Room Air 04/06 0733 160/80 / 0629 67 160/100 / 0600 98.3 67 20 160/100 92 Room Air 04/06 0000 Room Air 04/05 2247 98.1 67 18 150/78 91 Room Air 04/05 1920 94 Room Air 04/05 1600 Room Air 04/05 1443 98.1 70 20 130/90 91 Intake & Output 04/06 1600 04/06 0800 04/06 0000 Intake Total 120 1050 Output Total Balance 120 1050 Intake, IV 20 250 Intake, Oral 100 800 Physical Exam General Appearance: no apparent distress, alert, awake, comfortable Head: atraumatic, normal appearance Eyes: Bilateral: PERRL. Respiratory: no respiratory distress, decreased breath sounds Cardiovascular: S1 and S2 heard, no obvious murmur Gastrointestinal: normal bowel sounds, soft, non-tender Extremities: no edema Skin: intact, normal color, warm/dry Impression/Plan Impression/Plan Impression/Plan: 1. AECOPD. 2. Ongoing tobacco abuse. Recommendations: * Continue IV solumedrol. * Azithromycin for 5 days total. * Continue nebs/TRC. * Continue Spiriva. * Check ambulatory oxygen saturations. * Smoking cessation counseling. * DVT prophylaxis at all times.
--- NOTE | 2017-04-06 11:10 | PN- Student ---
Subjective Subjective: ID: The patient is a 51 year old white obese female smoker with a history of diabetes, COPD, A. fib, DVT, HTN, right foot osteomyelitis, pelvic fracture and depression. CC: coughing, chest pain, difficulty breathing for one week Source: patient and chart HPI: Patient reports feeling like she had the flu starting last week. She was coughing and had a fever, in addition to body and muscle aches. She saw her primary care doctor who gave her steroids. Over the course of the week, her fever and body aches got better but her coughing got worse. She now states that and is having difficulty breathing with any movement. She went back to her PCP for a follow-up and was noted to be saturating in the 80s%. Her PCP then sent her to the ER. She does not have a fever and denies palpitations. She has had spells of difficulty breathing before, most recently a year ago when she was found to have bilobar pneumonia. She does not report any other symptoms. Of note , she has been smoking more than usual lately. There was also a period last week when she did not have her symbicort due to insurance issues. Other than that, she takes all her medications regularly. She is not on home oxygen. PMH: She has a past medical history of atrial fibrillation, hypertension, diabetes type 2, deep vein thrombosis, pneumonia, GERD, right foot osteomyelitis that grew MRSA, pelvic fracture, syncope, acute kidney injury, and depression. Medications: See objective Allergies: See objective ROS: Constitutional- negative Eyes- negative ENT- negative Pulmonary- cough, shortness of breath, difficulty breathing, chest pain Cardiac- chest pain GI- negative - negative Musculoskeletal- negative Skin- negative Neuro- negative Psychiatric- depression, anxious Endocrine- negative Family History: Mother of lung cancer. Father had diabetes. Brother committed suicide 6 months ago. Also has a sister and another brother who are healthy. Social History: She has been smoking 2 packs a day lately which she attributes to boredom with having to stay home because she was sick. Her normal amount is 1 pack a day. She denies alcohol and drug use. She is morbidly obese. She states that she has lost 45 lbs and is meeting with a specialist for a consultation about bypass surgery. She has lost the weight by eating better. She gets exercise by playing with and walking her dog. She is with no children. Her is in an assisted living facility and she visits frequently. He has cognitive decline, and was an alcoholic. She is on full disability and notes that she may have issues paying her mortgage. She is close with her sister and frequently stays with her. Objective Objective: Vital Signs Date Time Temp Pulse Resp B/P B/P Pulse O2 O2 Flow FiO2 Mean Ox Delivery Rate 04/06 0940 94 Nasal 2.0L Cannula 04/06 0842 93 Room Air 04/06 0733 160/80 04/06 0629 67 160/100 04/06 0600 98.3 67 20 160/100 92 Room Air 04/06 0000 Room Air 04/05 2247 98.1 67 18 150/78 91 Room Air 04/05 1920 94 Room Air 04/05 1600 Room Air 04/05 1443 98.1 70 20 130/90 91 Physical Exam: General: in some distress, alert and oriented, nervous appearing, some difficulty speaking Eyes: no scleral icterus, normal conjunctiva ENT: no perioral cyanosis Neck: no lymphadenopathy Lungs: bilateral wheezing, cough, decreased breath sounds Cardiac: normal S1 and S2, no JVP, no carotid bruits Abdomen: no hepatosplenomegaly, soft, non-tender, normal bowel sounds, no CVA tenderness Extremities: minimal pedal edema, no purpura or ecchymoses, no digital clubbing Psych: distressed, anxious sounding, tearful Results Results: Current Medications Sig/Teresita Start time Last Medication Dose Stop Time Status Admin Quetiapine Fumarate 100 MG AT BEDTIME 04/06 2200 AC (Seroquel) Azithromycin 500 MG Q24H 04/06 1700 AC (Zithromax) Dextrose/Water 250 ML (D5W) Insulin Detemir 11 UNITS BID 04/06 1000 AC 04/06 (Levemir) 0931 Insulin Detemir 20 UNITS AT BEDTIME 04/05 2200 CAN (Levemir) Albuterol Sulfate 3 ML TID 04/05 1000 AC 04/06 (Proventil) 0941 Losartan Potassium 100 MG DAILY 04/05 1000 AC 04/06 (Cozaar) 0629 Nicotine 21 MG DAILY 04/05 1000 AC (Nicoderm) Insulin Aspart 0 TIDAC 04/05 0800 AC 04/06 (NovoLOG) 0803 Budesonide/ 2 PUF BID 04/04 2199 AC 04/06 Formoterol Fumarate 0932 (Symbicort) Gabapentin 600 MG TID 04/04 220 AC 04/06 (Neurontin) 0931 Insulin Aspart 0 AT BEDTIME 04/04 2199 AC 04/05 (NovoLOG) 2100 Quetiapine Fumarate 25 MG TID 04/04 2199 AC 04/06 (Seroquel) 0931 Topiramate 100 MG QPM 04/04 220 AC 04/05 (Topamax) 2099 Rivaroxaban 20 MG DAILY 04/04 1999 AC 04/06 (Xarelto) 0931 Albuterol Sulfate 2 PUF 4 TIMES/DAY PRN 04/04 1800 AC (Ventolin) Methylprednisolone 40 MG Q6 04/04 1800 AC 04/06 (Solumedrol) 04/07 1201 0618 Duloxetine HCl 90 MG DAILY 04/04 1750 AC 04/06 (Cymbalta) 0931 Diltiazem HCl 120 MG DAILY 04/04 1749 AC 04/06 (Cardizem CD) 0931 Omeprazole 40 MG DAILY AC 04/04 1749 AC 04/06 (Prilosec) 0617 Tiotropium [place] 1 PUF DAILY 04/04 1748 AC 04/06 (Spiriva) 0930 Orders Procedure Date/time Status Consistent Carbohydrate 2 04/06 L Active MAGNESIUM 04/06 06 Complete BASIC ELECTROLYTES PLUS BUN&CR 04/06 06 Complete Nursing Misc 04/06 UNK Active PHARMACY COMMUNICATION FORM 04/06 UNK Active LOWER RESPIRATORY CULTURE 04/05 1541 Active AEROSOL CHG 04/05 UNK Complete OXYGEN 04/05 UNK Complete OXYGEN DAILY CHARGE 04/05 UNK Complete Laboratory Tests 04/06/17 0819: Anion Gap 14, Estimated GFR 58 L, BUN/Creatinine Ratio 39.0 H, Magnesium 2.2 04/05/17 0740: Anion Gap 13, Estimated GFR > 60, BUN/Creatinine Ratio 32.2 H, CBC w Diff NO MAN DIFF REQ, RBC 3.19 L, MCV 94.9, MCH 32.4 H, MCHC 34.2, RDW 15.5 H, MPV 8.9, Gran % 82.3 H, Lymphocytes % 13.9 L, Monocytes % 3.8, Eosinophils % 0, Basophils % 0, Absolute Granulocytes 6.2, Absolute Lymphocytes 1.0 L, Absolute Monocytes 0.3, Absolute Eosinophils 0, Absolute Basophils 0 04/04/17 1343: Anion Gap 14, Estimated GFR > 60, BUN/Creatinine Ratio 31.1 H, Glucose 230 H, Calcium 9.6, Total Bilirubin 0.3, AST 10 L, ALT 24, Alkaline Phosphatase 98, Troponin I < 0.01, Wad-Z-Zwcxhpyrift Pept 521 H, Total Protein 6.7, Albumin 3.8 , Globulin 2.9, Albumin/Globulin Ratio 1.3, D-Dimer High Sensitivty < 200, CBC w Diff NO MAN DIFF REQ, RBC 3.60 L, MCV 90.3, MCH 29.9, MCHC 33.2, RDW 15.4 H, MPV 8.7, Gran % 73.3, Lymphocytes % 18.8 L, Monocytes % 7.5, Eosinophils % 0.2, Basophils % 0.2, Absolute Granulocytes 5.9, Absolute Lymphocytes 1.5, Absolute Monocytes 0.6, Absolute Eosinophils 0, Absolute Basophils 0 Microbiology 04/05 1541 LOWER RESP: Respiratory Culture - COLB 04/05 1541 LOWER RESP: Gram Stain - COLB 04/04 1715 NASOPHARYN: Influenza Virus A & B Rapid Smear - COMP Assessment/Plan Assessment: This is a 51 year old female white obese 2 pack a day smoker with a history of COPD, A. Fib, hypertension, and depression presenting with one week history of cough, shortness of breath, chest pain and low oxygen saturations. Her chest x- ray shows bronchial wall thickening most likely due to reactive airway disease or bronchitis and her rapid flu test is negative. Her physical exam shows bilateral wheezing and respiratory distress. This is most likely a COPD exacerbation due to either viral infection or missing her medications or increased smoking. Plan: COPD exacerbation: -Should be given supplement oxygen with the goal of keeping saturation in 88-92% range. -Should be given nebulizer treatment every 1-4 hours PRN of 2.5 albuterol and 500 mcg of tiotropium. -Should be given 40 mg prednisone orally 1-4 times daily -Draw sputum cultures -Consult pulmonology -Glass Sander patient about smoking cessation A.fib: -Continue home medication xarelto 20 mg daily. Diabetes: -Check her glucose levels with finger sticks -Continue her home dose of Levemir 22 units daily and insulin according to sliding scale. Depression: -Continue home medications quetiapine 25 mg TID, duloxetine 60 mg daily, and gabapentin 600 mg. Hypertension and GERD: - Continue home medications losartan 100 mg daily and omeprazole 40 mg daily.
--- NOTE | 2017-04-06 11:16 | PN- Student ---
Subjective Subjective: Patient did well overnight. She still feels some shortness of breath when she moves around. Has not had to use her oxygen. Her chest discomfort has diminished. Is able to talk more without becoming short of breath. Her glucose levels have remained high at around 300. Denies any other symptoms. Objective Objective: Physical Exam: General: appears well, alert and oriented, cooperative Lungs: mild wheezing bilateral, mildly diminished breath sounds, difficulty with deep breaths Cardiac: normal S1 and S2, no carotid bruits Extremities: no digital clubbing, 1+ pedal edema Results Results: Laboratory Tests 04/06/17 0819: Anion Gap 14, Estimated GFR 58 L, BUN/Creatinine Ratio 39.0 H, Magnesium 2.2 04/05/17 0740: Anion Gap 13, Estimated GFR > 60, BUN/Creatinine Ratio 32.2 H, CBC w Diff NO MAN DIFF REQ, RBC 3.19 L, MCV 94.9, MCH 32.4 H, MCHC 34.2, RDW 15.5 H, MPV 8.9, Gran % 82.3 H, Lymphocytes % 13.9 L, Monocytes % 3.8, Eosinophils % 0, Basophils % 0, Absolute Granulocytes 6.2, Absolute Lymphocytes 1.0 L, Absolute Monocytes 0.3, Absolute Eosinophils 0, Absolute Basophils 0 04/04/17 1343: Anion Gap 14, Estimated GFR > 60, BUN/Creatinine Ratio 31.1 H, Glucose 230 H, Calcium 9.6, Total Bilirubin 0.3, AST 10 L, ALT 24, Alkaline Phosphatase 98, Troponin I < 0.01, Adc-J-Dkpvuqvapns Pept 521 H, Total Protein 6.7, Albumin 3.8 , Globulin 2.9, Albumin/Globulin Ratio 1.3, D-Dimer High Sensitivty < 200, CBC w Diff NO MAN DIFF REQ, RBC 3.60 L, MCV 90.3, MCH 29.9, MCHC 33.2, RDW 15.4 H, MPV 8.7, Gran % 73.3, Lymphocytes % 18.8 L, Monocytes % 7.5, Eosinophils % 0.2, Basophils % 0.2, Absolute Granulocytes 5.9, Absolute Lymphocytes 1.5, Absolute Monocytes 0.6, Absolute Eosinophils 0, Absolute Basophils 0 Microbiology 04/05 1541 LOWER RESP: Respiratory Culture - COLB 04/05 1541 LOWER RESP: Gram Stain - COLB 04/04 8619 NASOPHARYN: Influenza Virus A & B Rapid Smear - COMP Assessment/Plan Assessment: This is a 51 year old female white obese 2 pack a day smoker with a history of COPD, A. Fib, hypertension, and depression presenting with one week history of cough, shortness of breath, chest pain and low oxygen saturations. Her chest x- ray shows bronchial wall thickening most likely due to reactive airway disease or bronchitis and her rapid flu test is negative. Her physical exam shows bilateral wheezing and respiratory distress. This is most likely a COPD exacerbation due to either viral infection or missing her medications or increased smoking. Plan: COPD exacerbation: -Supplemental oxygen with the goal of keeping saturation above 92% . -Nebulizer treatment 3 mg albuterol TID - IV 40 mg prednisone Q6 -Sputum cultures are pending -Crop Pest Control Specialist patient about smoking cessation -Follow pulmonology recommendations which are: -Continue IV solumedrol. -Azithromycin for 5 days total. -Continue nebs/TRC. -Continue Spiriva. -Check ambulatory oxygen saturations. -Smoking cessation counseling. -DVT prophylaxis at all times. A.fib: -Continue home medication xarelto 20 mg daily. Diabetes: -Check her glucose levels with finger sticks -Continue her home dose of Levemir 22 units daily and insulin according to sliding scale. Depression: -Continue home medications quetiapine 25 mg TID, duloxetine 60 mg daily, and gabapentin 600 mg. Hypertension and GERD: - Continue home medications losartan 100 mg daily and omeprazole 40 mg daily. Will see how her sats are when ambulating with PT. Possible discharge. Diabetes: -Check her glucose levels with finger sticks -Continue her home dose of Levemir 22 units daily and insulin according to sliding scale. Depression: -Continue home medications quetiapine 25 mg TID, duloxetine 60 mg daily, and gabapentin 600 mg. Hypertension and GERD: - Continue home medications losartan 100 mg daily and omeprazole 40 mg daily.
--- NOTE | 2017-04-06 12:52 | ED PSYCHIATRIST/APRN CONSULT ---
Psychiatrist/EQUIPMENT ANALYST ED Consult Assessment and Plan: Reason for consult: "depressed." The patient is also followed at [facility] by Karli Felton APRN. Quote: "I was a little melancholy when I first came in. Prednisone does that to me." HPI: 51 , , obese female sent to the ED by PCP 04/04/17 for worsening SOB. She is smoking 2 packs per day. PMHx: Includes COPD not on home oxygen, DM, HTN, afib on Xarelto, DVT RLE, right foot osteomyelitis with MRSA, fractured pelvis, per her report, last month. PPHx: Bipolar disorder, currently treated at home with: Dulozetine/Cymbalta 60 mg PO daily Quetiapine/Seroquel 25 mg PO 3X/day as needed Quetiapine/Seroquel XR 150 mg PO every evening Topiramate/topamax 100 mg PO at bedtime MSE: Alert and oriented. Denies AH, VH and presents no fariba delusions. She denies SI or HI. Slow tremor in right hand noted; she reports that this may be genetic, per her physician, and predates Seroquel. Insight and judgement intact. She is tearful at times, when discussing her who lives in a SNF, due to early onset Alzheimers disease. She has no children, but dotes on her sister's children. Denies alcohol or street drug use; last beer two years ago. She attends AA meetings with her sister. 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 Denies racing thoughts since starting Seroquel. Denies current depression, but states that it was intense at [place] time, the first at home without her spouse, Niru. She feels guilty about having him placed in the SNF. Denies helplessness, hopelessness, worthlessness. Slight anxiety, because she wants to go home. Discussion: The patient is not suicidal and not deeply depressed. Her medications are working well for her, helping her "maintain a balance." She reports that she had increased her Cymbalta to the previous dosing of 120 mg , after the was told that the cause of her hyponatremia was her diet medicine, which she has stopped. Ms. Felton had her on Cymbalta 60 mg PO daily as of the last med refill request on 03/19/17. she is currently on Cymbalta 90 mg PO daily, and is tolerating it well. The patient has an appointment with Karli Felton APRN, at [facility] later this month. Plan: 1. May increase Cymbalta to home dose of 120 mg PO daily. 2. Topiramate lab level. 3. Topiramate 100 mg PO at bedtime 4. Seroquel 25 mg PO 3X/day as needed 5. Seroquel XR 150 mg PO every evening. 6. Discharge summary to Karli Felton APRN Thank you for this consult. Please re-consult if other psychiatric matters arise.
[2017-04-06 14:55] VITALS: BP 130/70
[2017-04-06] MEDS ORDERED: DULOXETINE HCL60 MG PO (15:17)
[2017-04-06] MEDS ORDERED: QUETIAPINE FUMA25 M1 PO (15:17)
--- NOTE | 2017-04-06 15:23 | Patient Discharge Instructions ---
Discharge Instructions General Discharge Information You were seen/treated for: COPD exacerbation due to acute bronchitis Acute hypoxemic respiratory failure Watch for these problems: cough, sputum, shortness of breath, chest pain, lightheadedness, fever and chills. If you experience any of these symptoms, Please come to ED or call your primary care physician. Special Instructions: Follow your primary care physician in one week Follow-up with your sales host in 1 week Follow-up with your psychiatrist in 1 week Diet Recommended Diet: Diabetic Activity Activity Self Limited: Yes Acute Coronary Syndrome Inclusion Criteria At DC or during hospital stay patient has or had the following: ACS DIAGNOSIS No Discharge Core Measures Meds if any: Prescribed or Continued at Discharge Meds if any: NOT Prescribed or Continued at Discharge Congestive Heart Failure Inclusion Criteria At DC or during hospital stay patient has or had the following: CHF DIAGNOSIS No Discharge Core Measures Meds if any: Prescribed or Continued at Discharge Meds if any: NOT Prescribed or Continued at Discharge Cerebrovascular accident Inclusion Criteria At DC or during hospital stay patient has or had the following: CVA/TIA Diagnosis No Discharge Core Measures Meds if any: Prescribed or Continued at Discharge Meds if any: NOT Prescribed or Continued at Discharge Venous thromboembolism Inclusion Criteria VTE Diagnosis No VTE Type NONE VTE Confirmed by (Test) NONE Discharge Core Measures - Per Current guidelines, there needs to be overlap - treatment for the first 5 days of Warfarin therapy. - If discharged on Warfarin prior to 5 days of - overlap therapy, the patient will need to be - assessed for post discharge needs including - *Post discharge parental anticoagulation - *Warfarin and/or parental anticoagulation education - *Follow up date to check INR post discharge At least 5 days overlap therapy as Inpatient No Meds if any: Prescribed or Continued at Discharge Note: Overlap Therapy is Warfarin and Anticoagulant Meds if any: NOT Prescribed or Continued at Discharge
[2017-04-06] MEDS ORDERED: PREDNISONE10 M2 PO (17:24)
[2017-04-06] MEDS ORDERED: AZITHROMYCIN250 M1 PO (17:26)
[2017-04-06 22:13] VITALS: BP 146/60
[2017-04-06 22:22] VITALS: BP 140/82
[2017-04-07 07:50] VITALS: BP 150/92
--- NOTE | 2017-04-07 08:51 | PN- Housestaff ---
Jose RESTREPO,Marcial 04/07/17 0851: Subjective Follow-up For: acute COPD exacerbation Subjective: breathing somewhat better today Review of Systems Constitutional: Reports: no symptoms. Objective Last 24 Hrs of Vital Signs/I&O Vital Signs Date Time Temp Pulse Resp B/P B/P Pulse O2 O2 Flow FiO2 Mean Ox Delivery Rate 04/07 1007 98.1 52 19 150/92 04/07 0850 94 Nasal 2.0L Cannula 04/07 0800 93 Room Air Room Air 04/07 0750 98.1 52 19 150/92 94 Room Air 04/07 0000 93 Room Air 04/06 2222 97.5 78 19 140/82 92 04/06 1945 93 Room Air 04/06 1455 98.8 91 20 130/70 96 Intake & Output 04/07 1600 04/07 0800 04/07 0000 Intake Total 480 360 Output Total Balance 480 360 Intake, Oral 480 360 Physical Exam General Appearance: Alert, Oriented X3, Cooperative Cardiovascular: Regular Rate, Normal S1, Normal S2, No Murmurs Lungs: diminished breath sounds, scattered rhonchi Abdomen: Normal Bowel Sounds, Soft, No Tenderness, No Masses Extremities: No Clubbing, No Cyanosis, No Edema Current Medications: Current Medications Sig/Teresita Start time Last Medication Dose Route Stop Time Status Admin Albuterol Sulfate 3 ML TID 04/05 1000 AC 04/07 INH 0851 Albuterol Sulfate 2 PUF 4 TIMES/DAY PRN 04/04 1800 AC INH Azithromycin 500 MG Q24H 04/06 1700 AC 04/06 Dextrose/Water 250 ML IV 1650 Budesonide/ 2 PUF BID 04/04 2200 AC 04/07 Formoterol Fumarate INH 1005 Diltiazem HCl 120 MG DAILY 04/04 1749 AC 04/07 PO 1007 Duloxetine HCl 120 MG DAILY 04/07 1000 AC 04/07 PO 1007 Duloxetine HCl 90 MG DAILY 04/04 1750 DC 04/06 PO 0931 Gabapentin 600 MG TID 04/04 2200 AC 04/07 PO 1007 Insulin Aspart 6 UNITS ONCE ONE 04/07 0930 DC 04/07 SC 04/07 0931 0958 Insulin Aspart 0 TIDAC 04/05 0800 AC 04/07 SC 0800 Insulin Aspart 0 AT BEDTIME 04/04 2200 AC 04/06 SC 2120 Insulin Detemir 15 UNITS BID 04/06 2200 AC 04/07 SC 0959 Insulin Detemir 11 UNITS BID 04/06 1000 DC 04/06 SC 2037 Losartan Potassium 100 MG DAILY 04/05 1000 AC 04/07 PO 1007 Methylprednisolone 40 MG Q12 04/06 2200 AC 04/07 IV 04/08 220 1001 Methylprednisolone 40 MG Q6 04/04 1800 DC 04/06 IV 04/07 1201 1154 Nicotine 21 MG DAILY 04/05 1000 AC TOP Omeprazole 40 MG DAILY AC 04/04 1749 AC 04/07 PO 0614 Quetiapine Fumarate 100 MG AT BEDTIME 04/06 2199 DC PO Quetiapine Fumarate 150 MG AT BEDTIME 04/06 2200 AC 04/06 PO 2035 Quetiapine Fumarate 25 MG TID PRN 04/06 1503 AC 04/06 PO 2119 Quetiapine Fumarate 25 MG TID 04/04 2200 DC 04/06 PO 0931 Rivaroxaban 20 MG DAILY 04/04 2000 AC 04/07 PO 1007 Tiotropium [place] 1 PUF DAILY 04/04 1748 AC 04/07 INH 1004 Topiramate 100 MG AT BEDTIME 04/06 2199 CAN PO Topiramate 100 MG QPM 04/04 220 AC 04/06 PO 2034 Last 24 Hrs of Lab/Chase Results Last 24 Hrs of Labs/Mics: Laboratory Tests 04/07/17 0810: Anion Gap 13, Estimated GFR > 60, BUN/Creatinine Ratio 43.3 H 04/06/17 1343: Ref Lab Test Result Pending Microbiology 04/06 1508 LOWER RESP: Respiratory Culture - COLB 04/06 1508 LOWER RESP: Gram Stain - COLB Assessment/Plan Assessment: 51 YO F current somoker (2packs/day) with PMH of COPD not on home O2, DM, HTN, Proxysmal A.fib not on anticoagulation, DVT of right lower extremity, depression /anxiety, right foot osteomyelitis with MRSA presented to ED with progressively worsening shortness of breath and dry cough for last 1 week. We'll admit the patient on general medicine floor to treat for COPD exacerbation. Acute hypoxemic respiratory failure due to COPD exacerbation: -COPD exacerbation possibly due to acute bronchitis with acute hypoxemic respiratory failure. -Supplemental oxygen as needed to maintain saturation above 92%. -Could be possibly due to viral tracheobronchitis or non availability of medications. -IV Solu-Medrol every 12 hourly. -TRC nebulization -Chest physiotherapy -Continue azithromycin day 3 -Sputum cultures pending receipt -We will continue Spiriva. -Rapid flu test negative. -Appreciate pulmonology recommendations. H/O A.fib: -We will continue xeralto Continue cardizem 120mg daily for rate control History of diabetes: -Accu-Cheks, 300s-400s + yesterday -Insulin NovoLog according to sliding scale. increased night time coverage while on BID solumedrol -Increased Levemir to 15 units bid. History of depression/anxiety: -We will continue home medications. -Appreciate psychiatry recommendations History of hypertension and GERD: -We will continue home medications DVT prophylaxis; Mechanical and Lovenox CODE STATUS: Full code. Problem List: 1. Hypoxia 2. COPD exacerbation Pain Ratin Pain Location: n/a Pain Goal: Pain 4 or less Pain Plan: prn Tomorrow's Labs & Rationales: none Zuleyka RESTREPO,B 04/07/17 1242: Attending MD Review Statement Attending Statement Attending MD Statement: examined this patient, discuss w/resident/PA/MANAGER TELECOM, agreed w/resident/PA/MANAGER TELECOM, discussed with nursing Attending Assessment/Plan: 51 y/o female with DM, COPD admitted with COPD exacerbation. c/o SOB on exam exepiratory wheezing and diminished breathsounds at the bases. will continue with IV streoids today, no taper. will consider swicthing to po prednisone in am if improvemnt in her symptoms and lung exam. c/w azithro. Ambulatory sats prior to discharge in am. Pt has diabetes and blood sugars are not very well controlled likely in the setting of steroids. will increase dose of levemir to 20 bid. Discharge planning for am.
--- NOTE | 2017-04-07 10:20 | Discharge Summary ---
See Addendum Visit Information Visit Dates Admission Date: 04/04/17 Discharge Date: 04/07/17 Hospital Course Course Attending Physician: Osvaldo Clay MD [facility] 51 Y[facility] F current somoker (2packs/day) with PMH of COPD not on home O2, DM, HTN, Proxysmal A.fib not on anticoagulation, DVT of right lower extremity, depression /anxiety, right foot osteomyelitis with MRSA presented to ED with progressively worsening shortness of breath and dry cough for last 1 week. ED course: Vitals: Temperature 98.8, pulse 92, respiratory 20, blood pressure 118/70, oxygen saturation 95% on room air. Labs: WBC count 8.1, hemoglobin 10.8, hematocrit 32.5, platelet count 287, sodium 140, potassium 3.9, BUN 28, creatinine 0.9, BUN/creatinine ratio 31.1, anion gap 14, glucose 2:30, calcium 9.6, AST 10, ALT 24, alkaline phosphatase 98 , troponin less than 0.01, albumin 3.8. Patient received one dose of azithromycin in ED Acute hypoxemic respiratory failure due to COPD exacerbation: She was admitted with acute hypoxemic respiratory failure due to COPD exacerbation and she was given supplemental oxygen to maintain saturation above 92%. Her rapid flu test was negative and sputum cultures were obtained. Patient was given IV Solu Medrol that was tapered according to patient's response to steroids. She also completed 5 days course of azithromycin. She was given Mucinex to bring up sputum and TRC nebulization as needed. Pulmonary consult was obtained and recommendations were followed. Patient was instructed to follow pulmonology as outpatient for further recommendations and follow-up. Before discharge patient's ambulatory saturations were checked and she maintained oxygen saturation above 92% on room air during ambulation. Patient was discharged on steroid taper. H/O A.fib: We continued xeralto. History of diabetes: In the hospital stay patient's blood sugar level was regularly checked and her mealtime and bedtime was covered with NovoLog with sliding scale. She was also given insulin Levemir. Over the discharge patient's home medication was resumed. Patient was instructed to follow primary care for better control of blood sugar. History of depression/anxiety: Patient home medication for depression and anxiety were continued and psychiatric consult was obtained and their recommendations were followed. Psychiatric change the doses of duloxetine and quetiapine. Patient was instructed to follow psychiatry as outpatient for further recommendations and close follow-up. History of hypertension and GERD: We continued home medications. DVT prophylaxis; Mechanical and Lovenox CODE STATUS: Full code. Allergies: Coded Allergies: morphine (Severe, MAKES HER CRAZY 03/06/16) Pertinent Lab Results: Chest x-ray on 04/04/17; IMPRESSION: 1. Bronchial wall thickening is consistent with reactive airways disease or bronchitis. WBC count 3.19, hemoglobin 10.4, hematocrit 30.3, platelet count 250, glucose 230, sodium 141, potassium 4.6, BUN 39, creatinine 0.5, BUNs/creatinine ratio 43.3 Disposition Summary Disposition Principal Diagnosis: Acute hypoxemic respiratory failure due to COPD exacerbation. Acute bronchitis Additional Diagnosis: A.fib DM Depression Anxiety Discharge Disposition: home or self care Discharge Instructions General Discharge Information Code Status: Full Code Patient's Diet: Diabetic diet Patient's Activity: Self limited Follow-Up Instructions/Appts: Follow up with pcp in one week. Follow up with [facility] consultant in one week. Follow up with outpatient psychiatrist in one week. Medications at Discharge Discharge Medications: Stop taking the following medications: Azithromycin (Azithromycin) 250 MG TABLET ORAL DAILY Qty = 3 Duloxetine HCl (Cymbalta) 60 MG CAPSULE.DR ORAL DAILY Qty = 30 Prednisone (Prednisone) 5 MG TABLET ORAL DAILY Qty = 5 Continue taking these medications: Tiotropium [place] (Spiriva) 18 MCG CAP.W.DEV 1 Capsule Inhale through mouth DAILY Qty = 90 Comments: Last Taken: 04/08/17 Time:9:35A.M Albuterol Sulfate (Proventil Hfa) 90 MCG HFA.AER.AD 2 Puff Inhale through mouth 4 TIMES A DAY as needed for BREATHING Qty = 13 Comments: Last Taken: 04/08/17 Time: 8:21A.M Budesonide/Formoterol Fumarate (Symbicort 160-4.5 Mcg Inhaler) 160 MCG-4.5 MCG/ ACTUATION HFA.AER.AD 2 Puff Inhale through mouth TWICE DAILY Qty = 10 Comments: Last Taken: 04/08/17 Time: 9:35A.M Gabapentin (Gabapentin) 300 MG CAPSULE 2 Capsule ORAL THREE TIMES DAILY Qty = 180 Comments: Last Taken:04/08/17 Time:9:35A.M Diltiazem HCl (Cartia Xt) 120 MG CAP.ER.24H 1 Capsule ORAL DAILY Qty = 90 Comments: Last Taken:04/08/16 Time:9:35A.M Esomeprazole (Nexium) 40 MG CAPSULE. 1 Capsule ORAL DAILY Qty = 90 Comments: Last Taken: NOT GIVEN IN HOSPITAL Time Losartan/Hydrochlorothiazide (Losartan-Hctz 100-25 MG Tab) 100 MG-25 MG TABLET 1 Tablet ORAL DAILY Qty = 90 Comments: Last Taken04/08/17 Time:9:35A.M LOSARTAN GIVEN Topiramate (Topiramate) 100 MG TABLET 1 Tablet ORAL Every night Qty = 30 Comments: Last Taken: 04/07/17 Time:10:24P.M Quetiapine Fumarate (Seroquel XR) 150 MG TAB.ER.24H 1 Tablet ORAL Every night Qty = 30 Comments: Last Taken:04/07/17 Time: 10:22P.M Metformin HCl (Glucophage) 1,000 MG TABLET 1 Tablet ORAL TWICE DAILY Qty = 60 Comments: NOT GIVEN THIS ADMISSION Insulin Detemir (Levemir Flextouch) 100 UNIT/ML (3 ML) INSULN.PEN 24 Unit Inject into fatty tissue Every night Qty = 3 Comments: Last Taken:04/08/17 Time:9:35A.M Rivaroxaban (Xarelto) 20 MG TABLET 1 Tablet ORAL DAILY Qty = 30 Comments: Last Taken:04/08/17 Time:9:35A.M Start taking the following new medications: Azithromycin (Azithromycin) 250 MG TABLET 1 Tablet ORAL DAILY Qty = 2 No Refills Instructions: . Comments: NOT GIVEN THIS ADMISSION Duloxetine HCl (Duloxetine HCl) 60 MG CAPSULE. 2 Capsule ORAL DAILY Qty = 30 No Refills Instructions: . Comments: Last Taken:04/08/17 Time:9:35A.M Prednisone (Prednisone) 10 MG TABLET 0 ORAL DAILY Qty = 63 No Refills Instructions: On Take 04/07-04/09 60 MG 04/10-04/12 50 MG 04/13-04/15 40 MG 04/16-04/18 30 MG 04/19-04/21 20 MG 04/22-04/24 10 GM Then Stop Comments: NOT STARTED IN HOSPITAL The following medications have been changed: Old: Quetiapine Fumarate (Quetiapine Fumarate) 25 MG TABLET 25 Milligram ORAL THREE TIMES DAILY Qty = 90 New: Quetiapine Fumarate (Quetiapine Fumarate) 25 MG TABLET 25 Milligram ORAL THREE TIMES DAILY as needed for Mood disorder Qty = 90 Comments: Last Taken:04/07/17 Time:3:44P.M Copies To: Prashanth Reynolds DO, MD,[facility]
[2017-04-07 14:28] VITALS: BP 140/82
--- NOTE | 2017-04-07 14:49 | PN- Pulmonary ---
Subjective HPI/Critical Care Issues: Patient seen and examined this morning. She appears to be doing much better and she is anticipating discharge tomorrow. Overall her wheezing has been improved per the patient. Objective Current Medications: Current Medications Sig/Teresita Start time Last Medication Dose Route Stop Time Status Admin Albuterol Sulfate 3 ML TID 04/05 1000 AC 04/07 INH 0851 Albuterol Sulfate 2 PUF 4 TIMES/DAY PRN 04/04 1800 AC INH Azithromycin 500 MG Q24H 04/06 1700 AC 04/06 Dextrose/Water 250 ML IV 1650 Budesonide/ 2 PUF BID 04/04 2200 AC 04/07 Formoterol Fumarate INH 1005 Diltiazem HCl 120 MG DAILY 04/04 1749 AC 04/07 PO 1007 Duloxetine HCl 120 MG DAILY 04/07 1000 AC 04/07 PO 1007 Duloxetine HCl 90 MG DAILY 04/04 1750 DC 04/06 PO 0931 Gabapentin 600 MG TID 04/04 2200 AC 04/07 PO 1007 Insulin Aspart 6 UNITS ONCE ONE 04/07 0930 DC 04/07 SC 04/07 0931 0958 Insulin Aspart 0 TIDAC 04/05 0800 AC 04/07 SC 1202 Insulin Aspart 0 AT BEDTIME 04/04 2200 AC 04/06 SC 2120 Insulin Detemir 20 UNITS BID 04/07 2200 AC SC Insulin Detemir 15 UNITS BID 04/06 2200 DC 04/07 SC 0959 Insulin Detemir 11 UNITS BID 04/06 1000 DC 04/06 SC 2037 Losartan Potassium 100 MG DAILY 04/05 1000 AC 04/07 PO 1007 Methylprednisolone 40 MG Q12 04/06 2200 AC 04/07 IV 04/08 2201 1001 Methylprednisolone 40 MG Q6 04/04 1800 DC 04/06 IV 04/07 1201 1154 Nicotine 21 MG DAILY 04/05 1000 AC TOP Omeprazole 40 MG DAILY AC 04/04 1749 AC 04/07 PO 0614 Quetiapine Fumarate 100 MG AT BEDTIME 04/06 2200 DC PO Quetiapine Fumarate 150 MG AT BEDTIME 04/06 2200 AC 04/06 PO 2035 Quetiapine Fumarate 25 MG TID PRN 04/06 1503 AC 04/06 PO 2119 Quetiapine Fumarate 25 MG TID 04/04 2200 DC 04/06 PO 0931 Rivaroxaban 20 MG DAILY 04/04 2000 AC 04/07 PO 1007 Tiotropium [place] 1 PUF DAILY 04/04 1748 AC 04/07 INH 1004 Topiramate 100 MG AT BEDTIME 04/06 2199 CAN PO Topiramate 100 MG QPM 04/04 2199 AC 04/06 PO 2034 Vital Signs & I&O Last 24 Hrs of Vitals and I&O: Vital Signs Date Time Temp Pulse Resp B/P B/P Pulse O2 O2 Flow FiO2 Mean Ox Delivery Rate 04/07 1428 97.2 68 20 140/82 98 Room Air 04/07 1007 98.1 52 19 150/92 04/07 0850 94 Nasal 2.0L Cannula 04/07 0800 93 Room Air Room Air 04/07 0750 98.1 52 19 150/92 94 Room Air 04/07 0000 93 Room Air 04/06 2222 97.5 78 19 140/82 92 04/06 1945 93 Room Air 04/06 1455 98.8 91 20 130/70 96 Intake & Output 04/07 1600 04/07 0800 04/07 0000 Intake Total 480 480 360 Output Total Balance 480 480 360 Intake, Oral 480 480 360 Exam Other Physical Findings: General - Alert, awake and oriented HEENT - normocephalic, atraumatic Cardiovascular - S1, S2 Lungs -bilateral wheezing Abdomen - obese, soft, bowel sounds positive, no tenderness Extremities - without edema or cyanosis Results Last 24 Hrs of Lab Results: Laboratory Tests 04/07/17 0810: Anion Gap 13, Estimated GFR > 60, BUN/Creatinine Ratio 43.3 H Impression/Plan Impression/Plan Impression/Plan: Impression 51-year-old woman * Acute exacerbation of COPD in the setting of tobacco dependence Plan -Continue steroids with a plan to taper tomorrow. -Zithromax for 5 day course -[facility] nebs -Check ambulatory oxygen saturation -Smoking cessation counseled plan for dc tomorrow DVT prophylaxis of all times
[2017-04-07 22:36] VITALS: BP 122/64
[2017-04-08 07:11] VITALS: BP 130/84
--- NOTE | 2017-04-08 07:36 | PN- Housestaff ---
[facility] Subjective Follow-up For: COPD exacerbation due to bronchitis Acute hypoxemic respiratory failure.(resolved) Subjective: No overnight events. Patient remained afebrile overnight. Seen and examined this morning. She is on room air maintaining saturation 92%. She denied any chest pain, short of breath, nausea, vomiting, chills, fever, abdominal pain dysuria. She reported intermittent cough but no sputum. Fasting blood sugar level 353. Review of Systems Constitutional: Reports: no symptoms. EENTM: Reports: no symptoms. Cardiovascular: Reports: no symptoms. Respiratory: Reports: cough. Gastrointestinal: Reports: no symptoms. Genitourinary: Reports: no symptoms. Musculoskeletal: Reports: no symptoms. Neurological/Psychological: Reports: no symptoms. Objective Last 24 Hrs of Vital Signs/I&O Vital Signs Date Time Temp Pulse Resp B/P B/P Pulse O2 O2 Flow FiO2 Mean Ox Delivery Rate 04/08 0711 98.1 52 18 130/84 92 Room Air 04/08 0000 Room Air 04/07 2236 98.2 68 18 122/64 95 04/07 2044 95 Room Air 04/07 1600 98 Room Air 04/07 1428 97.2 68 20 140/82 98 Room Air 04/07 1007 98.1 52 19 150/92 Intake & Output 04/08 1600 04/08 0800 04/08 0000 Intake Total 360 750 Output Total Balance 360 750 Intake, IV 250 Intake, Oral 360 500 Physical Exam General Appearance: Alert, Oriented X3, Cooperative Skin Temp/Moisture Exam: Warm/Dry Sepsis Skin Exam (color): Normal for Ethnicity HEENT: Atraumatic, PERRLA, EOMI Neck: Supple Cardiovascular: Normal S1, Normal S2 Lungs: Mild b/l inspiratory wheezing. Abdomen: Soft, No Tenderness Neurological: Normal Speech, Strength at 5/5 X4 Ext, Normal Tone, Sensation Intact Extremities: No Edema Assessment/Plan Assessment: 51 YO F current somoker (2packs/day) with PMH of COPD not on home O2, DM, HTN, Proxysmal A.fib not on anticoagulation, DVT of right lower extremity, depression /anxiety, right foot osteomyelitis with MRSA presented to ED with progressively worsening shortness of breath and dry cough for last 1 week. We'll admit the patient on general medicine floor to treat for COPD exacerbation. Acute hypoxemic respiratory failure due to COPD exacerbation:(improving) -COPD exacerbation possibly due to acute bronchitis with acute hypoxemic respiratory failure. -Supplemental oxygen as needed to maintain saturation above 92%. -Could be possibly due to viral tracheobronchitis or non availability of medications. -IV Solu-Medrol every 12 hourly. -TRC nebulization -Chest physiotherapy -Continue azithromycin day 3 -Sputum cultures pending receipt -We will continue Spiriva. -Rapid flu test negative. -Appreciate pulmonology recommendations. H/O A.fib: -We will continue xeralto Continue cardizem 120mg daily for rate control History of diabetes: -Accu-Cheks. -Insulin NovoLog according to sliding scale. increased night time coverage while on BID solumedrol -Increased Levemir to 20 units bid. History of depression/anxiety: -We will continue home medications. -Appreciate psychiatry recommendations History of hypertension and GERD: -We will continue home medications DVT prophylaxis; Mechanical and Lovenox CODE STATUS: Full code. Problem List: 1. COPD exacerbation Pain Ratin Pain Location: none Pain Goal: Remain pain free Pain Plan: pain pathway Tomorrow's Labs & Rationales: none Zuleyka RESTREPO,B 04/08/17 1040: Attending MD Review Statement Attending Statement Attending MD Statement: examined this patient, discuss w/resident/PA/CUPOLA CHARGER, agreed w/resident/PA/CUPOLA CHARGER, discussed with nursing, discussed with case mgmt Attending Assessment/Plan: 51 y/o female with DM, COPD admitted with COPD exacerbation. pt reports that she is doing much better today. planning upon disharging her on long steroid taper. Awaiting ambulatory sats/ Pt has diabetes and blood sugars are not very well controlled likely in the setting of steroids. will increase dose of levemir further to 25 bid. Discharge today of does fine on ambulatory sats.
[2017-04-08 09:35] VITALS: BP 130/84
[2017-04-08] MEDS ORDERED: XARELTO20 M2 PO (13:20)
--- NOTE | 2017-04-08 13:31 | PN- Pulmonary ---
Subjective HPI/Critical Care Issues: Patient seen and examined this morning. She has desaturated to 88% with exertion however quickly rebounded she's feeling better she wants to be discharged today. Objective Current Medications: Current Medications Sig/Teresita Start time Last Medication Dose Route Stop Time Status Admin Albuterol Sulfate 3 ML TID 04/05 1000 AC 04/08 INH 0821 Albuterol Sulfate 2 PUF 4 TIMES/DAY PRN 04/04 1800 AC INH Azithromycin 500 MG Q24H 04/06 1700 AC 04/07 Dextrose/Water 250 ML IV 1720 Budesonide/ 2 PUF BID 04/04 2200 AC 04/08 Formoterol Fumarate INH 0942 Diltiazem HCl 120 MG DAILY 04/04 1749 AC 04/08 PO 0935 Duloxetine HCl 120 MG DAILY 04/07 1000 AC 04/08 PO 0935 Gabapentin 600 MG TID 04/04 2200 AC 04/08 PO 0935 Insulin Aspart 0 TIDAC 04/05 0800 AC 04/08 SC 1200 Insulin Aspart 0 AT BEDTIME 04/04 2200 AC 04/07 SC 2223 Insulin Detemir 20 UNITS BID 04/07 2200 AC 04/08 SC 0945 Losartan Potassium 100 MG DAILY 04/05 1000 AC 04/08 PO 0935 Methylprednisolone 40 MG Q12 04/06 2200 AC 04/08 IV 04/08 2201 0936 Nicotine 21 MG DAILY 04/05 1000 AC TOP Omeprazole 40 MG DAILY AC 04/04 1749 AC 04/08 PO 0636 Quetiapine Fumarate 150 MG AT BEDTIME 04/06 2200 AC 04/07 PO 2224 Quetiapine Fumarate 25 MG TID PRN 04/06 1503 AC 04/07 PO 1544 Rivaroxaban 20 MG DAILY 04/04 2000 AC 04/08 PO 0935 Tiotropium [place] 1 PUF DAILY 04/04 1748 AC 04/08 INH 0934 Topiramate 100 MG QPM 04/04 2200 AC 04/07 PO 2224 Vital Signs & I&O Last 24 Hrs of Vitals and I&O: Vital Signs Date Time Temp Pulse Resp B/P B/P Pulse O2 O2 Flow FiO2 Mean Ox Delivery Rate 04/08 0935 82 130/84 04/08 0821 94 Room Air 04/08 0800 94 Room Air Room Air 04/08 0711 98.1 52 18 130/84 92 Room Air 04/08 0000 Room Air 04/07 2236 98.2 68 18 122/64 95 04/07 2044 95 Room Air 04/07 1600 98 Room Air 04/07 1428 97.2 68 20 140/82 98 Room Air Intake & Output 04/08 1600 04/08 0800 04/08 0000 Intake Total 360 750 Output Total Balance 360 750 Intake, IV 250 Intake, Oral 360 500 Exam Other Physical Findings: General - Alert, awake and oriented HEENT - normocephalic, atraumatic Cardiovascular - S1, S2 Lungs -bilateral wheezing Abdomen - obese, soft, bowel sounds positive, no tenderness Extremities - without edema or cyanosis Impression/Plan Impression/Plan Impression/Plan: Impression 51-year-old woman * Acute exacerbation of COPD in the setting of tobacco dependence Plan -prednisone taper -Zithromax for 5 day course -TRC nebs -o2 sats 88% with a quick recovery - does not require o2 at this time -I however discussed with patient the needs to consider sleep apnea testing including nocturnal pulse oximetry which we will arrange on an outpatient basis -Smoking cessation counseled DC planning DVT prophylaxis of all times
[2017-04-08] MEDS ORDERED: AZITHROMYCIN250 M1 PO (16:20)
[2017-04-08] MEDS ORDERED: DULOXETINE HCL60 MG PO (16:23)
== END 2017-04-08 14:03 | DRG 189 ==
LOC: ERH 12:21 → ERHI 17:21 → 2NA 17:21 → ENRESERV 17:49 → ENTRNSPT 19:15 → EDTRNSPT 19:25 → EDTRNSPTSTS 19:25 → 2NA 19:29 → CMPTRNSPT 19:42 → 2NA 04-05 09:37 → ENPENDDIS 04-08 12:24 → ENTRNSPT 04-08 13:55 → 2NA 04-08 14:03 → CMPTRNSPT 04-08 14:08 → DELTRNSPT 04-08 14:33
PROVIDERS: Internal Medicine Hematology & Oncology; Physician Assistant Medical
DX: J96.01 Acute respiratory failure with hypoxia (principal); E66.01 Morbid (severe) obesity due to excess calories; J44.1 Chronic obstructive pulmonary disease with (acute) exacerbation; J44.0 Chronic obstructive pulmonary disease with (acute) lower respiratory infection; Z68.43 Body mass index [BMI] 50.0-59.9, adult; I48.0 Paroxysmal atrial fibrillation; F17.210 Nicotine dependence, cigarettes, uncomplicated; F32.9 Major depressive disorder, single episode, unspecified; J20.9 Acute bronchitis, unspecified; E11.9 Type 2 diabetes mellitus without complications; I10 Essential (primary) hypertension; Z79.01 Long term (current) use of anticoagulants; Z86.718 Personal history of other venous thrombosis and embolism; F41.9 Anxiety disorder, unspecified; Z86.14 Personal history of Methicillin resistant Staphylococcus aureus infection; Z88.5 Allergy status to narcotic agent; Z79.4 Long term (current) use of insulin; Z79.51 Long term (current) use of inhaled steroids; K21.9 Gastro-esophageal reflux disease without esophagitis; Z83.3 Family history of diabetes mellitus; Z80.1 Family history of malignant neoplasm of trachea, bronchus and lung
CPT/HCPCS: 2NAP; 80201; 36415; 71046; 82436; 87070; 87804; 87804-59; 93005; 93010; 96374; 99232; J0456; J1650; J2920; J2930; J3490; J7060